=== PATIENT | female | born 1990 | race Caucasian/White ===

== ENCOUNTER 2019-11-05 10:42 | Emergency (ER) | payer SELFPAY ==
--- NOTE | 2019-11-05 11:27 | ER ---
Nurse's Notes [facility] Name: Mel Moncada Age: 29 yrs Sex: Female : 1990 Arrival Date: 11/05/2019 Time: 10:44 Bed 15 Private MD: Diagnosis: Zoster [herpes zoster] Presentation: 11/04 10:46 Chief complaint: Patient states: Possible insect bite to right side of forehead that aa5 began Wednesday. Pt states "now my right eyelid is swollen and I feel like the right side of my face is swollen". 10:46 Coronavirus screen: Client denies travel out of the [place] in the last 14 days. At this aa5 time, the client does not indicate any symptoms associated with coronavirus-19. Ebola Screen: Patient negative for fever greater than or equal to 101.5 degrees Fahrenheit, and additional compatible Ebola Virus Disease symptoms. Initial Sepsis Screen: Does the patient meet any 2 criteria? No. Patient's initial sepsis screen is negative. Does the patient have a suspected source of infection? No. Patient's initial sepsis screen is negative. Risk Assessment: Do you want to hurt yourself or someone else? Patient reports no desire to harm self or others. Onset of symptoms was October 2019. 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 - Social history:: Smoking status: Patient reports the use of cigarette tobacco products, smokes one-half pack cigarettes per day. Screenin:55 Abuse screen: Denies threats or abuse. Denies injuries from another. Nutritional ca1 screening: No deficits noted. Tuberculosis screening: No symptoms or risk factors identified. Fall Risk None identified. Assessment: 10:55 General: Appears in no apparent distress. comfortable, Behavior is calm, cooperative, ca1 appropriate for age. Pain: Complains of pain in forehead Pain currently is 8 out of 10 on a pain scale. Quality of pain is described as burning, Pain began 2-3 days ago. Neuro: Level of Consciousness is awake, alert, obeys commands, Oriented to person, place, time, situation. EENT: Eyes upper R eyelid mild swelling noted. . Derm: Skin is intact, is healthy with good turgor, Skin is pink, warm \\T\\ dry. Rash noted that is red, raised, on forehead. Musculoskeletal: Circulation, motion, and sensation intact. Capillary refill < 3 seconds. 11:32 Reassessment: Patient appears in no apparent distress at this time. No changes from ca1 previously documented assessment. Patient is alert, oriented x 3, equal unlabored respirations, skin warm/dry/pink. Vital Signs: 10:46 BP 121 / 95; Pulse 85; Resp 16 S; Temp 98.0(O); Pulse Ox 98% on R/A; Weight 104.33 kg aa5 (R); Height 4 ft. 11 in. (149.86 cm) (R); Pain 8/10; 11:32 BP 116 / 85; Pulse 82; Resp 15 S; Pulse Ox 99% on R/A; ca1 10:46 Body Mass Index 46.45 (104.33 kg, 149.86 cm) aa5 ED Course: 10:44 Patient arrived in ED. ag5 10:46 Arm band placed on Patient placed in an exam room, on a stretcher. aa5 10:50 Boni Husain PA is PHCP. jr8 10:50 Fahad Cardona MD is Attending Physician. jr8 10:53 Triage completed. aa5 10:54 Sonja Phillips RN is Primary Nurse. ca1 10:55 Patient has correct armband on for positive identification. Bed in low position. Call ca1 light in reach. Side rails up X 1. Pulse ox on. NIBP on. 10:57 No provider procedures requiring assistance completed. Patient did not have IV access ca1 during this emergency room visit. Administered Medications: No medications were administered Outcome: 11:26 Discharge ordered by . jr8 11:32 Discharged to home ambulatory. ca1 11:32 Condition: stable 11:32 Discharge instructions given to patient, Instructed on discharge instructions, follow up and referral plans. medication usage, Demonstrated understanding of instructions, follow-up care, medications, Prescriptions given X 2. 11:33 Patient left the ED. ca1 Signatures: Jolanta Rader RN RN aa5 Boni Husain PA PA jr8 Sonja Phillips RN RN ca1 Vijaya Ladd ag5 Corrections: (The following items were deleted from the chart) 11: 10:55 Derm: Skin is intact, is healthy with good turgor, Skin is pink, warm \\T\\ dry. Rash ca1 noted that is red, raised, on forehead ca1 11: 10:55 Pain: Complains of pain in forehead Pain currently is 8 out of 10 on a pain ca1 scale. Pain began 2-3 days ago. ca1
--- NOTE | 2019-11-05 11:27 | EDPHYS ---
Physician Documentation [facility] Name: Mel Moncada Age: 29 yrs Sex: Female : 1990 Arrival Date: 11/05/2019 Time: 10:44 Bed 15 Private MD: ED Physician Fahad Cardona HPI: 11/04 10:58 This 29 yrs old Female presents to ER via Ambulatory with complaints of jr8 Facial Swelling, Insect Bite. 10:58 Onset: The symptoms/episode began/occurred 2 day(s) ago. Associated signs and symptoms: jr8 The patient has no apparent associated signs or symptoms. The patient has not experienced similar symptoms in the past. Pt states that she noticed what looked like a bug bite on her R forehead on Wednesday. This progressed to redness, burning, and pain extending to the scalp. Pt denies fever, chills, pruitus, and any other symptoms.. 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 - Social history:: Smoking status: Patient reports the use of cigarette tobacco products, smokes one-half pack cigarettes per day. ROS: 11:10 ENT: Negative for injury, pain, and discharge, Neck: Negative for injury, pain, and jr8 swelling, Cardiovascular: Negative for chest pain, palpitations, and edema, Respiratory: Negative for shortness of breath, cough, wheezing, and pleuritic chest pain, Abdomen/GI: Negative for abdominal pain, nausea, vomiting, diarrhea, and constipation, Back: Negative for injury and pain, MS/Extremity: Negative for injury and deformity, Neuro: Negative for headache, weakness, numbness, tingling, and seizure. 11:10 Eyes: Positive for swelling, of the right eye. 11:10 Skin: Positive for rash, of the face. Exam: 11:10 Constitutional: This is a well developed, well nourished patient who is awake, alert, jr8 and in no acute distress. ENT: Nares patent. No nasal discharge, no septal abnormalities noted. Tympanic membranes are normal and external auditory canals are clear. Oropharynx with no redness, swelling, or masses, exudates, or evidence of obstruction, uvula midline. Mucous membranes moist. Neck: Trachea midline, no thyromegaly or masses palpated, and no cervical lymphadenopathy. Supple, full range of motion without nuchal rigidity, or vertebral point tenderness. No Meningismus. Cardiovascular: Regular rate and rhythm with a normal S1 and S2. No gallops, murmurs, or rubs. Normal PMI, no JVD. No pulse deficits. Respiratory: Lungs have equal breath sounds bilaterally, clear to auscultation and percussion. No rales, rhonchi or wheezes noted. No increased work of breathing, no retractions or nasal flaring. Skin: Warm, dry with normal turgor. Normal color with no rashes, no lesions, and no evidence of cellulitis. MS/ Extremity: Pulses equal, no cyanosis. Neurovascular intact. Full, normal range of motion. Neuro: Awake and alert, GCS 15, oriented to person, place, time, and situation. Cranial nerves II-XII grossly intact. Motor strength 5/5 in all extremities. Sensory grossly intact. Cerebellar exam normal. Normal gait. 11:10 Head/face: clustered, erythematic rash noted to R scalp extending to hairline. 11:10 Eyes: Periorbital structures: swelling, that is mild, on the right supraorbital ridge and right upper eyelid, Pupils: equal, round, and reactive to light and accomodation, Extraocular movements: intact throughout, Conjunctiva: normal, Corneas: are normal, Sclera: no appreciated abnormality, Anterior chamber: normal, Examination of the other eye reveals no obvious gross abnormality. Vital Signs: 10:46 BP 121 / 95; Pulse 85; Resp 16 S; Temp 98.0(O); Pulse Ox 98% on R/A; Weight 104.33 kg aa5 (R); Height 4 ft. 11 in. (149.86 cm) (R); Pain 8/10; 11:32 BP 116 / 85; Pulse 82; Resp 15 S; Pulse Ox 99% on R/A; ca1 10:46 Body Mass Index 46.45 (104.33 kg, 149.86 cm) aa5 MDM: 10:56 Patient medically screened. 8 11:10 Data reviewed: vital signs, nurses notes. Data interpreted: Pulse oximetry: on room air jr8 is 98 %. Interpretation: normal. Counseling: I had a detailed discussion with the patient and/or guardian regarding: the historical points, exam findings, and any diagnostic results supporting the discharge/admit diagnosis, the need for outpatient follow up, a family practitioner, to return to the emergency department if symptoms worsen or persist or if there are any questions or concerns that arise at home. ED course: Based on pt complaint, clinical presentation/exam the pt most likely has Herpes Zoster with a chance of early staphylococcal secondary infection. Will put the pt on Acyclovir and Mupurocin ointment. Will discharge the pt, have her follow up with PCP, and instruct to return to the ED if symptoms persist/worsen.. Administered Medications: No medications were administered Disposition: 12:16 Co-signature as Attending Physician, Fahad Cardona MD. rn Disposition: 11/05/19 11:26 Discharged to Home. Impression: Zoster [herpes zoster]. - Condition is Stable. - Discharge Instructions: Shingles. - Prescriptions for Bactroban 2 % Topical Ointment - Apply to affected area 1 application by TOPICAL route every 12 hours; 30 gram. Acyclovir 800 mg Oral Tablet - take 1 tablet by ORAL route 5 times per day for 7 days; 35 tablet. - Medication Reconciliation Form, Thank You Letter, Antibiotic Education, Prescription Opioid Use form. - Follow up: Private Physician; When: 2 - 3 days; Reason: Recheck today's complaints, Continuance of care, Re-evaluation by your physician. - Problem is new. - Symptoms are unchanged. Signatures: Fahad Cardona MD MD rn Calderon, Audri RN RN aa5 Boni Husain PA PA jr8 Sonja Phillips RN RN ca1 Corrections: (The following items were deleted from the chart) 11:33 11:26 11/05/2019 11:26 Discharged to Home. Impression: Zoster [herpes zoster]. ca1 Condition is Stable. Forms are Medication Reconciliation Form, Thank You Letter, Antibiotic Education, Prescription Opioid Use. Follow up: Private Physician; When: 2 - 3 days; Reason: Recheck today's complaints, Continuance of care, Re-evaluation by your physician. Problem is new. Symptoms are unchanged. jr8
[2019-11-05 11:39] VITALS: TEMP 98
[2019-11-05 11:40] VITALS: BP 116/85; O2SAT 99
== END 2019-11-05 11:33 | disposition home or self-care (01) ==
LOC: ER 10:42
DX: B02.9 Zoster without complications (principal); F17.210 Nicotine dependence, cigarettes, uncomplicated
CPT/HCPCS: 99283

== ENCOUNTER 2021-03-10 12:01 | Emergency (ER) | payer SELFPAY ==
[2021-03-10] MEDS ORDERED: ONDANSETRON 4 MG/2 ML VIAL ONE ×2 (14:57→18:57)
[2021-03-10] MEDS ORDERED: NA CHLORIDE 0.9% 1,000 ML ONE (14:58)
[2021-03-10 17:53] LABS: Absolute Lymphocytes (CBC) 0.9 K/uL (0.7-4.9); Basophils % 0.2 % (0-1.3); Hematocrit 40.7 % (36.0-45.0); Lymphocytes % 8.5 % (15.3-44.8); MPV 7.6 fL (7.6-11.3); RBC Red Blood Cell Count 4.44 M/uL (3.86-4.86)
[2021-03-10 18:15] LABS: ALT/SGPT 43 U/L (12-78); AST/SGOT 18 U/L (15-37); Albumin 3.2 g/dL (3.4-5.0); Alkaline Phosphatase 65 U/L (45-117); BUN Blood Urea Nitrogen 12 mg/dL (7-18); Bicarbonate 23 mmol/L (21-32); Bilirubin Direct 0.1 mg/dL (0-0.2); Bilirubin Total 0.5 mg/dL (0.2-1.0); Glucose Level 90 mg/dL (74-106); Lipase 115 U/L (73-393); Protein, Total 7.3 g/dL (6.4-8.2); Sodium Level 141 mmol/L (136-145)
--- NOTE | 2021-03-10 18:52 | RAD REPORT ---
EXAM DESCRIPTION: CTAbdomen Pelvis W Contrast - 03/10/2021 6:35 pm CLINICAL HISTORY: Abdominal pain. abd pain; nausea/vomiting COMPARISON: Abdomen Pelvis W Contrast dated 12/20/2016; CT ABD PELVIS W CONTRAST dated 04/05/2013 TECHNIQUE: Biphasic CT imaging of the abdomen and pelvis was performed with 100 ml non-ionic IV cont rast. All CT scans are performed using dose optimization technique as appropriate and may include automated exposure control or mA/KV adjustment according to patient size. FINDINGS: The lung bases are clear. The liver straight diffuse fatty infiltration. Spleen, pancreas, adrenal glands and kidneys are withi n normal limits. No bowel obstruction, free air, free fluid or abscess. Appendectomy. No evidence of significant lym phadenopathy. No suspicious bony findings. IMPRESSION: No acute intra-abdominal or pelvic finding.
--- NOTE | 2021-03-10 18:55 | EDPHYS ---
Physician Documentation [facility] Name: Mel Moncada Age: 31 yrs Sex: Female : 1990 Arrival Date: 03/10/2021 Time: 12:04 Bed 17 Private MD: ED Physician Fahad Cardona HPI: 03/10 14:36 This 31 yrs old Female presents to ER via Ambulatory with complaints of rn Nausea/Vomiting/Diarrhea. 14:36 The patient presents to the emergency department with nausea, vomiting, diarrhea, rn abdominal pain, of the right lower quadrant. Onset: The symptoms/episode began/occurred this morning. Possible causes: unknown. The symptoms are aggravated by nothing. The symptoms are alleviated by nothing. Associated signs and symptoms: Pertinent positives: abdominal pain, diarrhea, nausea, vomiting, Pertinent negatives: fever, GI bleeding. Severity of symptoms: At their worst the symptoms were moderate in the emergency department the symptoms are unchanged. The patient has not experienced similar symptoms in the past. The patient has not recently seen a physician. Pt reports nausea/vomiting/diarrhea that began earlier today. Reports > 10 episodes of vomiting and diarrhea. No blood in stool. no fever. No trauma. No cough or sob. No known sick contacts. Has had appendix removed. . Historical: - Allergies: 12:58 No Known Allergies; ss - PMHx: 12:58 None; ss - PSHx: 12:58 Appendectomy; section; ss - Immunization history:: Adult Immunizations up to date. - Social history:: Smoking status: Patient reports the use of cigarette tobacco products, smokes one-half pack cigarettes per day. - Family history:: not pertinent. - Hospitalizations: : No recent hospitalization is reported. ROS: 14:36 Constitutional: Negative for fever, chills, and weight loss, Eyes: Negative for injury, rn pain, redness, and discharge, Neck: Negative for injury, pain, and swelling, Cardiovascular: Negative for chest pain, palpitations, and edema, Respiratory: Negative for shortness of breath, cough, wheezing, and pleuritic chest pain, Abdomen/GI: + abd pain/nausea/vomiting/diarrhea Back: Negative for injury and pain, MS/Extremity: Negative for injury and deformity, Skin: Negative for injury, rash, and discoloration, Neuro: Negative for headache, numbness, tingling, and seizure. Exam: 14:36 Constitutional: This is a well developed, well nourished patient who is awake, alert, rn appears uncomfortable Head/Face: Normocephalic, atraumatic. Eyes: Periorbital areas with no swelling, redness, or edema. ENT: dry MM Cardiovascular: Tachycardic, regular. No pulse deficits. Respiratory: No increased work of breathing, no retractions or nasal flaring. Abdomen/GI: Soft, mild RLQ abd tenderness, no rebound Skin: Warm, dry MS/ Extremity: Pulses equal, no cyanosis. Neuro: Awake and alert, GCS 15 Vital Signs: 12:54 BP 115 / 82; Pulse 113; Resp 18; Temp 98.6; Pulse Ox 100% ; Weight 110.68 kg; Height 4 ss ft. 11 in. (149.86 cm); Pain 10/10; 14:54 BP 116 / 80; Pulse 86; Resp 18; Temp 98.5(O); Pulse Ox 100% ; jh6 16:32 BP 123 / 74; Pulse 82; Resp 17; Pulse Ox 100% ; Pain 0/10; jh6 17:35 BP 125 / 76; Pulse 80; Resp 17; Pulse Ox 100% ; jh6 12:54 Body Mass Index 49.28 (110.68 kg, 149.86 cm) ss MDM: 14:17 Patient medically screened. rn 18:54 Differential diagnosis: Nonspecific abd pain, diverticulitis, viral gastroenteritis, rn gastroenteritis. Data reviewed: vital signs, nurses notes, lab test result(s), radiologic studies, CT scan, and as a result, I will discharge patient. Counseling: I had a detailed discussion with the patient and/or guardian regarding: the historical points, exam findings, and any diagnostic results supporting the discharge/admit diagnosis, lab results, radiology results, the need for outpatient follow up, to return to the emergency department if symptoms worsen or persist or if there are any questions or concerns that arise at home. Response to treatment: the patient's symptoms have markedly improved after treatment, and as a result, I will discharge patient. Special discussion: Based on the patient's Hx, exam, and Dx evaluation, there is no indication for emergent surgery or inpatient Tx. It is understood by the patient/guardian that if the Sx's persist or worsen they need to return immediately for re-evaluation. I discussed with the patient/guardian in detail that at this point there is no indication for admission to the hospital. It is understood, however, that if the symptoms persist or worsen the patient needs to return immediately for re-evaluation. 03/10 14:24 Order name: Basic Metabolic Panel; Complete Time: 18:27 rn 03/10 14:24 Order name: CBC with Diff; Complete Time: 18:05 rn 03/10 14:24 Order name: Hepatic Function; Complete Time: 18:27 rn 03/10 14:24 Order name: Lipase; Complete Time: 18:27 rn 03/10 17:19 Order name: Abdomen ; Complete Time: 18:53 EDMS 03/10 14:24 Order name: IV Saline Lock; Complete Time: 14:55 rn 03/10 14:24 Order name: Labs collected and sent; Complete Time: 14:55 rn 03/10 15:06 Order name: Labs - recollect needed: recollect green and lavender tube.; Complete Time: bd 17:54 Administered Medications: 15:03 Drug: NS 0.9% 1000 ml Route: IV; Rate: 1000 ml; Site: left antecubital; [facility] 15:03 Drug: Zofran (Ondansetron) 4 mg Route: IVP; Site: left antecubital; [facility] 15:32 Follow up: Response: No adverse reaction [facility] 19:00 Not Given (Patient Refused): LoMOTIL (diphenoxylate-atropine) 2 tabs PO once 6 19:00 Drug: Zofran (Ondansetron) 4 mg Route: IVP; Site: left forearm; [facility] 19:00 Follow up: Response: No adverse reaction [facility] Disposition Summary: 03/10/21 18:54 Discharge Ordered Location: Home rn Problem: new rn Symptoms: have improved rn Condition: Stable rn Diagnosis - Vomiting, unspecified rn - Diarrhea, unspecified rn Followup: rn - With: Private Physician - When: As needed - Reason: Recheck today's complaints, Re-evaluation by your physician Discharge Instructions: - Discharge Summary Sheet rn - Diarrhea, Adult rn - Nausea and Vomiting, Adult rn Forms: - Medication Reconciliation Form rn - Thank You Letter rn - 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 EDMS EDMS
--- NOTE | 2021-03-10 18:55 | ER ---
Nurse's Notes [facility] Name: eMl Moncada Age: 31 yrs Sex: Female : 1990 Arrival Date: 03/10/2021 Time: 12:04 Bed 17 Private MD: Diagnosis: Vomiting, unspecified;Diarrhea, unspecified Presentation: 03/10 12:54 Chief complaint: Patient states: throwing up since this morning; x5 per patient with ss diarrhea every 30-40 min. All started about 0600am today. Complaints of right sided abdominal pain. Pt states she has had her appendix removed. Denies . Coronavirus screen: Vaccine status: Patient reports being unvaccinated. Client denies travel out of the [place] in the last 14 days. Ebola Screen: Patient negative for fever greater than or equal to 101.5 degrees Fahrenheit, and additional compatible Ebola Virus Disease symptoms Patient denies exposure to infectious person. Patient denies travel to an Ebola-affected area in the 21 days before illness onset. Initial Sepsis Screen: Does the patient meet any 2 criteria? HR > 90 bpm. Does the patient have a suspected source of infection? Yes:. Risk Assessment: Do you want to hurt yourself or someone else? Patient reports no desire to harm self or others. Onset of symptoms was March 10, 2021. 12:54 Method Of Arrival: Ambulatory ss 12:54 Acuity: LUISANA 3 ss Triage Assessment: 12:58 General: Appears uncomfortable, obese, Behavior is calm, cooperative, appropriate for ss age. Pain: Complains of pain in abdomen. GI: Reports upper abdominal pain, diarrhea, nausea, vomiting. Historical: - Allergies: 12:58 No Known Allergies; ss - PMHx: 12:58 None; ss - PSHx: 12:58 Appendectomy; section; ss - Immunization history:: Adult Immunizations up to date. - Social history:: Smoking status: Patient reports the use of cigarette tobacco products, smokes one-half pack cigarettes per day. - Family history:: not pertinent. - Hospitalizations: : No recent hospitalization is reported. Screenin:56 Abuse screen: Denies threats or abuse. Nutritional screening: No deficits noted. jh6 Tuberculosis screening: No symptoms or risk factors identified. Fall Risk None identified. Assessment: 14:53 General: Appears in no apparent distress. Behavior is calm, cooperative, Smells of. jh6 Pain: Complains of pain in epigastric area Pain currently is 4 out of 10 on a pain scale. Quality of pain is described as crampy, Pain began suddenly, Is continuous, Aggravated by vomting. GI: Abdomen is round distended, obese, Abd is soft Abdomen is tender to palpation X 4 quads. 16:31 Reassessment: Patient and/or family updated on plan of care and expected duration. Pain jh6 level reassessed. Patient is alert, oriented x 3, equal unlabored respirations, skin warm/dry/pink. Patient states feeling better. no episodes of vomiting or abd pain at this time. attempted to call lab for redraw for second time,. 17:40 Reassessment: LAB AT BEDSIDE FOR REDRAW. jh6 17:53 Reassessment: labs brawn by tech and ct advised. pt ambulatory to bathroom without jh6 assistance and has had no episodes of vomiting. 18:27 Reassessment: Patient and/or family updated on plan of care and expected duration. Pain jh6 level reassessed. Patient is alert, oriented x 3, equal unlabored respirations, skin warm/dry/pink. Patient states feeling better. Vital Signs: 12:54 BP 115 / 82; Pulse 113; Resp 18; Temp 98.6; Pulse Ox 100% ; Weight 110.68 kg; Height 4 ss ft. 11 in. (149.86 cm); Pain 10/10; 14:54 BP 116 / 80; Pulse 86; Resp 18; Temp 98.5(O); Pulse Ox 100% ; jh6 16:32 BP 123 / 74; Pulse 82; Resp 17; Pulse Ox 100% ; Pain 0/10; jh6 17:35 BP 125 / 76; Pulse 80; Resp 17; Pulse Ox 100% ; jh6 12:54 Body Mass Index 49.28 (110.68 kg, 149.86 cm) ED Course: 12:04 Patient arrived in ED. ds1 12:58 Triage completed. 14:17 Fahad Cardona MD is Attending Physician. rn 14:18 Marisol Dye RN is Primary Nurse. 6 14:56 Inserted saline lock: 20 gauge in left antecubital area, using aseptic technique. jh6 14:56 Call light in reach. Side rails up X 1. jh6 15:00 Arm band placed on right wrist. jh6 15:29 IV discontinued, infiltration of iv to l ac. swelling and slight redness noted. warm 6 compress placed on l ac area. attempted twice further for second iv and was unsuccessful. notified and other personal is attempting. 18:27 Patient moved to [place] via stretcher. jh6 18:35 Abdomen In Process Unspecified. EDKY 18:40 Patient moved back from [place]. 6 18:40 No provider procedures requiring assistance completed. jh6 Administered Medications: 15:03 Drug: NS 0.9% 1000 ml Route: IV; Rate: 1000 ml; Site: left antecubital; 6 15:03 Drug: Zofran (Ondansetron) 4 mg Route: IVP; Site: left antecubital; 6 15:32 Follow up: Response: No adverse reaction [facility] 19:00 Not Given (Patient Refused): LoMOTIL (diphenoxylate-atropine) 2 tabs PO once 6 19:00 Drug: Zofran (Ondansetron) 4 mg Route: IVP; Site: left forearm; 6 19:00 Follow up: Response: No adverse reaction [facility] Outcome: 18:54 Discharge ordered by . rn 19:03 Discharged to home ambulatory. 6 19:03 Condition: improved 19:03 Discharge instructions given to patient, Instructed on discharge instructions, follow up and referral plans. Demonstrated understanding of instructions, follow-up care, medications, Prescriptions given X 1. 19:06 Patient left the ED. 6 Signatures: Dispatcher [employer] [facility] Karen Prince ds1 Fahad Cardona MD MD rn Smirch, Shelby, RN RN ss Hastedt, Jennifer, RN RN 6
[2021-03-10 19:32] VITALS: O2SAT 100
[2021-03-10 19:34] VITALS: TEMP 98.5
[2021-03-10 19:37] VITALS: BP 125/76
== END 2021-03-10 19:06 | disposition home or self-care (01) ==
LOC: ER 12:01
DX: R19.7 Diarrhea, unspecified (principal); F17.210 Nicotine dependence, cigarettes, uncomplicated
CPT/HCPCS: 36415; 74177; 80048; 80076; 83690; 85025; 99284; J2405; J7030; Q9967

== ENCOUNTER 2021-07-30 20:14 | Emergency (ER) | payer SELFPAY ==
[2021-07-30] MEDS ORDERED: HYDROCODONE/APAP 7.5/325 MG TAB ONE (21:13)
--- NOTE | 2021-07-30 22:00 | RAD REPORT ---
EXAM DESCRIPTION: RAD - Hand Left 3 View - 07/30/2021 9:40 pm CLINICAL HISTORY: SMASH INJURY COMPARISON: No comparisons FINDINGS/IMPRESSION: No acute fracture. No malalignment. No significant focal degenerative changes.
--- NOTE | 2021-07-30 22:15 | ER ---
Nurse's Notes [facility] Name: Mel Moncada Age: 31 yrs Sex: Female : 1990 Arrival Date: 07/30/2021 Time: 20:37 Bed 6 Private MD: Diagnosis: Crushing injury of hand-left Presentation: 07/30 20:43 Chief complaint: Patient states: "The trunk slammed down on my fingers and they are vc1 just throbbing. I can't bend my middle finger and I can't feel the middle three. The trunk shut completely on it and the keys were in my pocket so it took a few minutes to open it". Coronavirus screen: Vaccine status: Patient reports being unvaccinated. At this time, the client does not indicate any symptoms associated with coronavirus-19. Ebola Screen: No symptoms or risks identified at this time. Risk Assessment: Do you want to hurt yourself or someone else? Patient reports no desire to harm self or others. Onset of symptoms was July 30, 2021 at 19:00. 20:43 Method Of Arrival: Ambulatory vc1 20:43 Acuity: LUISANA 4 vc1 22:43 Initial Sepsis Screen: Does the patient meet any 2 criteria? Yes Does the patient have tw5 a suspected source of infection? No. Patient's initial sepsis screen is negative. Triage Assessment: 20:45 General: Appears in no apparent distress. uncomfortable, Behavior is calm, cooperative, vc1 appropriate for age. Pain: Complains of pain in left index finger, left middle finger and left ring finger Pain radiates to dorsal aspect of left wrist Pain currently is 9 out of 10 on a pain scale. at worst was 10 out of 10 on a pain scale. Quality of pain is described as pressure, squeezing, tingling, throbbing, Aggravated by movement. Neuro: Level of Consciousness is awake, alert, obeys commands, Oriented to person, place, time, situation, Appropriate for age. Cardiovascular: No deficits noted. Respiratory: No deficits noted. Derm: Skin has skin tears on Left index finger Bruising that is light purple. Musculoskeletal: Range of motion: limited in DIP of left middle finger, PIP of left middle finger and MCP of left middle finger Swelling present in left index finger, left middle finger and left ring finger. Injury Description: Crush injury sustained to left index finger, left middle finger and left ring finger. 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 Last tetanus immunization: unknown, Flu vaccine is not up to date. - Social history:: Smoking status: Patient reports the use of cigarette tobacco products, 1 pack every 2-3 days. Screenin:59 Abuse screen: Denies threats or abuse. Denies injuries from another. Nutritional lg3 screening: No deficits noted. Tuberculosis screening: No symptoms or risk factors identified. Fall Risk None identified. Assessment: 20:59 General: Appears in no apparent distress. comfortable, Behavior is calm, cooperative. lg3 Pain: Complains of pain in left hand and left ring finger and left middle finger and left index finger. Neuro: No deficits noted. Rutledge Agitation-Sedation Scale (RASS): 0 - Alert and Calm Level of Consciousness is awake, alert, obeys commands, Oriented to person, place, time, situation. Cardiovascular: No deficits noted. Denies chest pain, shortness of breath, Capillary refill < 3 seconds Clubbing of nail beds is absent JVD is absent Patient's skin is warm and dry. Respiratory: No deficits noted. Airway is patent Trachea midline Respiratory effort is even, unlabored, Respiratory pattern is regular, symmetrical. GI: No deficits noted. No signs and/or symptoms were reported involving the gastrointestinal system. : No deficits noted. No signs and/or symptoms were reported regarding the genitourinary system. EENT: No deficits noted. No signs and/or symptoms were reported regarding the EENT system. Derm: swelling noted to index, middle and ring finger of left hand. Musculoskeletal: Range of motion: limited in left middle finger. Injury Description: Crush injury. 22:14 Reassessment: Patient appears in no apparent distress at this time. No changes from lg3 previously documented assessment. Patient and/or family updated on plan of care and expected duration. Pain level reassessed. Patient is alert, oriented x 3, equal unlabored respirations, skin warm/dry/pink. Vital Signs: 20:50 BP 118 / 76 RA Sitting (auto/lg); Pulse 110 RA; Resp 17 S; Temp 98.4(TE); Pulse Ox 95% vc1 on R/A; Weight 113.4 kg (R); Height 4 ft. 11 in. (149.86 cm) (R); Pain 9/10; 22:42 Pain 4/10; tw5 20:50 Body Mass Index 50.49 (113.40 kg, 149.86 cm) vc1 ED Course: 20:37 Patient arrived in ED. bp1 20:41 Rober Casillas PA is PHCP. cp 20:41 Ollie Melissa MD is Attending Physician. cp 20:45 Triage completed. vc1 20:45 Arm band placed on right wrist. vc1 20:58 Belén Pierre, JOANN is Primary Nurse. lg3 20:59 Patient has correct armband on for positive identification. Bed in low position. Call lg3 light in reach. Side rails up X 1. Client placed on continuous cardiac and pulse oximetry monitoring. NIBP monitoring applied. Door closed. Noise minimized. Warm blanket given. 21:42 XRAY Hand LEFT 3 View In Process Unspecified. EDMS 22:42 Orthoglass splint: Volar splint applied on left arm. tw5 22:43 No provider procedures requiring assistance completed. Patient did not have IV access tw5 during this emergency room visit. Administered Medications: 21:16 Drug: Hydrocodone-Acetaminophen (7.5 mg-325 mg) 1 tabs Route: PO; tw5 22:28 Follow up: Response: No adverse reaction lg3 22:42 Follow up: Response: No adverse reaction; Pain is decreased; RASS: Alert and Calm (0) tw5 Outcome: 22:14 Discharge ordered by MD. cp 22:43 Discharged to home ambulatory, with family. tw5 22:43 Condition: good 22:43 Discharge instructions given to patient, family, Instructed on discharge instructions, follow up and referral plans. medication usage, Demonstrated understanding of instructions, follow-up care, medications, Prescriptions given X 1. 22:43 No charge visit due to 22:44 Patient left the ED. tw5 Signatures: Dispatcher [employer] EDMS Page, Rober, Belén Segura cp, RN RN lg3 Genie [facility] Reina Jaimes tw5 Anai Hsu, RN RN vc1
--- NOTE | 2021-07-30 22:15 | EDPHYS ---
Physician Documentation [facility] Name: Mel Moncada Age: 31 yrs Sex: Female : 1990 Arrival Date: 07/30/2021 Time: 20:37 Bed 6 Private MD: ED Physician Ollie Melissa HPI: 07/30 21:10 This 31 yrs old Female presents to ER via Ambulatory with complaints of Hand Injury, cp Finger Injury, Crush Injury To Hand. 21:10 The patient or guardian reports pain, swelling, tenderness, crushing injury to left cp hand from closing of car trunk onto hand. 21:10 Onset: The symptoms/episode began/occurred just prior to arrival. Associated signs and cp symptoms: The patient has no apparent associated signs or symptoms. 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 Last tetanus immunization: unknown, Flu vaccine is not up to date. - Social history:: Smoking status: Patient reports the use of cigarette tobacco products, 1 pack every 2-3 days. ROS: 21:20 MS/extremity: Positive for pain, swelling, tenderness, of the left hand, crushing cp injury, Negative for decreased range of motion, deformity, paresthesias. 21:20 Constitutional: Negative for body aches, chills, fever. cp Exam: 21:25 Constitutional: The patient appears in no acute distress, alert, awake, well developed, cp well nourished, uncomfortable. 21:25 Musculoskeletal/extremity: Extremities: grossly normal except: noted in the left hand: cp contusion, pain, swelling, tenderness, small abrasion dorsal side middle phalanx left middle finger, There is no evidence of decreased ROM, deformity, ROM: limited active range of motion due to pain, in the left hand, Perfusion: the extremity is normally perfused throughout, the left hand Sensation intact. Vital Signs: 20:50 BP 118 / 76 RA Sitting (auto/lg); Pulse 110 RA; Resp 17 S; Temp 98.4(TE); Pulse Ox 95% vc1 on R/A; Weight 113.4 kg (R); Height 4 ft. 11 in. (149.86 cm) (R); Pain 9/10; 22:42 Pain 4/10; tw5 20:50 Body Mass Index 50.49 (113.40 kg, 149.86 cm) vc1 Procedures: 22:30 Splinting: Splint applied to left hand using Orthoglass splint, volar type. applied by cp tech. Examined by me, post splint application: neurovascular intact, Patient tolerated well. MDM: 20:56 Patient medically screened. cp 22:14 Data reviewed: vital signs, nurses notes, radiologic studies, plain films. cp 22:14 Differential diagnosis: dislocation, open fracture, closed fracture, contusion. Test cp interpretation: by ED physician or midlevel provider: plain radiologic studies. Counseling: I had a detailed discussion with the patient and/or guardian regarding: the historical points, exam findings, and any diagnostic results supporting the discharge/admit diagnosis, radiology results, to return to the emergency department if symptoms worsen or persist or if there are any questions or concerns that arise at home. Response to treatment: the patient's symptoms have markedly improved after treatment, and as a result, I will discharge patient. 07/30 21:00 Order name: XRAY Hand LEFT 3 View cp 07/30 22:10 Order name: Splint: volar surface; Complete Time: 22:36 cp Administered Medications: 21:16 Drug: Hydrocodone-Acetaminophen (7.5 mg-325 mg) 1 tabs Route: PO; tw5 22:28 Follow up: Response: No adverse reaction lg3 22:42 Follow up: Response: No adverse reaction; Pain is decreased; RASS: Alert and Calm (0) tw5 Disposition Summary: 07/30/21 22:14 Discharge Ordered Location: Home cp Problem: new cp Symptoms: have improved cp Condition: Stable cp Diagnosis - Crushing injury of hand - left cp Followup: cp - With: Private Physician - When: 2 - 3 days - Reason: Worsening of condition Discharge Instructions: - Discharge Summary Sheet cp - Crush Injury of the Hand cp Forms: - Medication Reconciliation Form cp - Thank You Letter cp - Antibiotic Education cp - Prescription Opioid Use cp Prescriptions: - Naprosyn 500 mg Oral Tablet - take 1 tablet by ORAL route 2 times per day take with food; 20 tablet; Refills: cp 0, Product Selection Permitted Signatures: Dispatcher [employer] EDMS Rober Casillas PA PA cp Wood, Tiffany tw5 Anai Hsu RN RN vc1 Belén Pierre RN lg3 Corrections: (The following items were deleted from the chart) 07/31 21:16 07/30 21:10 The patient or guardian reports crushing injury to left hand from closing cp of car door onto hand, cp
[2021-07-30 23:18] VITALS: BP 118/76; TEMP 98.4; O2SAT 95
== END 2021-07-30 22:44 | disposition home or self-care (01) ==
LOC: ER 20:14
PROC: 2W3DX1Z Immobilization of Left Lower Arm using Splint (ICD-10-PCS; principal; 2021-07-30)
DX: S67.22XA Crushing injury of left hand, initial encounter (principal); W23.0XXA Caught, crushed, jammed, or pinched between moving objects, initial encounter; F17.210 Nicotine dependence, cigarettes, uncomplicated

== ENCOUNTER 2021-10-31 16:24 | Emergency (ER) | payer SELFPAY ==
--- OUTSIDE RECORDS SUMMARY | 2021-10-31 16:26 | XMS REPORT | Continuity of Care Document ---
:1990 Author Organization [facility] t Address [address] [place] [address] Care Team Providers Name Role Phone MORENO MOREL Attending Clinician Unavailable SOLANGE PUGH Attending Clinician Unavailable GERMAINE CAPPS Attending Clinician Unavailable SOLANGE PUGH Admitting Clinician Unavailable GERMAINE CAPPS Admitting Clinician Unavailable Problems This patient has no known problems. Allergies, Adverse Reactions, Alerts This patient has no known allergies or adverse reactions. Medications This patient has no known medications. Procedures This patient has no known procedures. Encounters Start End Encounter Admission Attending Care Care Encounter Source Date/Time Date/Time Type Type Clinicians Facility Department ID 2021-10-21 Outpatient MARIA TERESA [facility] [id number] [place] 10:50:26 MORENO [id number] [facility] 2021-11-05 2021-11-05 Outpatient [facility] [id number] [place] 13:00:00 13:00:00 [facility] 2021-10-11 2021-10-14 Inpatient SOLANGE SHEIKH [facility] [id number] 00:58:00 18:54:00 2021-10-10 2021-10-10 Outpatient GÉNESIS [facility] [place] [address] 17:11:00 23:59:00 GERMAINE Results This patient has no known results.
[2021-10-31] MEDS ORDERED: ONDANSETRON 4 MG/2 ML VIAL ONE (16:55)
[2021-10-31] MEDS ORDERED: MORPHINE 4 MG/ML SYR ONE (16:55)
[2021-10-31 17:27] LABS: Absolute Lymphocytes (CBC) 3.2 K/uL (0.7-4.9); Hematocrit 39.8 % (36.0-45.0); Lymphocytes % 29.6 % (15.3-44.8); MCV 91.3 fL (80-100); MPV 7.3 fL (7.6-11.3); RBC Red Blood Cell Count 4.36 M/uL (3.86-4.86)
[2021-10-31 17:29] LABS: Protime INR 0.97
[2021-10-31 17:48] LABS: Albumin 3.3 g/dL (3.4-5.0); Bilirubin Direct 0.2 mg/dL (0-0.2); Bilirubin Total 0.4 mg/dL (0.2-1.0); Magnesium 2.1 mg/dL (1.8-2.4); Troponin High Sensitivity 3.9 pg/mL (<58.9)
--- NOTE | 2021-10-31 17:48 | RAD REPORT ---
EXAM DESCRIPTION: [place] Single View10/31/2021 5:41 pm CLINICAL HISTORY: Chest pain COMPARISON: 2015 FINDINGS: The lungs appear clear of acute infiltrate. The heart is normal size IMPRESSION: No acute abnormalities displayed
[2021-10-31] MEDS ORDERED: MORPHINE 2 MG/ML SYR ONE (18:59)
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
[2021-11-01 03:22] VITALS: TEMP 97.9
[2021-11-01 03:32] VITALS: BP 95/68; O2SAT 95
--- NOTE | 2021-11-01 09:13 | EKG ---
Test Date: 2021-10-31 Test Time: 16:53:06 Information Developer: WANDA MEASUREMENT RESULTS: Intervals: Rate: 102 CT: 166 QRSD: 90 QT: 352 QTc: 458 [place]: P: 53 CT: 166 QRS: 54 T: 57 INTERPRETIVE STATEMENTS: Sinus tachycardia Otherwise normal ECG No previous ECG available for comparison Electronically Signed On 11-01-21 09:12:49 CDT by Rashel Slade
--- NOTE | 2021-11-01 18:43 | RAD REPORT ---
EXAM DESCRIPTION: CT Angiography Chest With Intravenous Contrast CLINICAL HISTORY: The patient is 31 years old and is Female; Chest pain TECHNIQUE: Axial computed tomographic angiography images of the chest with intravenous contrast. T his CT exam was performed using one or more of the following dose reduction techniques: automated e xposure control, adjustment of the mA and/or kV according to patient size, and/or use of iterative re construction technique. MIP reconstructed images were created and reviewed. Oblique reformatted images were created and reviewed. DLP: 975 mGy*cm COMPARISON: Chest radiograph of the same day. FINDINGS: PULMONARY ARTERIES: Limited evaluation due to poor bolus timing. No central pulmonary em boli. AORTA: No acute findings. No thoracic aortic aneurysm. LUNGS: Unremarkable. No mass. No consolidation. PLEURAL SPACE: Unremarkable. No significant effusion. No pneumothorax. HEART: Unremarkable. No cardiomegaly. No significant pericardial effusion. No evidence of RV dysfunction. BONES/JOINTS: No acute fracture. No dislocation. SOFT TISSUES: Large right lateral abdominal wall defect with herniation of right hepatic lobe and m ild herniation of large bowel. Surrounding fat stranding. LYMPH NODES: Unremarkable. No enlarged lymph nodes. LIVER: Hepatic steatosis. IMPRESSION: 1. Limited evaluation due to poor bolus timing. No central pulmonary emboli. 2. No acute intrathoracic abnormality. 3. Large right lateral abdominal wall defect with herniation of right hepatic lobe and mild herniat ion of large bowel. Surrounding fat stranding. 4. Hepatic steatosis. Electronically signed by: Johnny Salgado DO 10/31/2021 11:52 PM CDT Due to temporary technical issues with the PACS/Fluency reporting system, reports are being signed by the in house radiologists without review as a courtesy to insure prompt reporting. The interpreting radiologist is fully responsible for the content of the report.
== END 2021-11-01 00:45 | disposition home or self-care (01) ==
LOC: ER 16:24
DX: R07.9 Chest pain, unspecified (principal); R10.11 Right upper quadrant pain; F17.210 Nicotine dependence, cigarettes, uncomplicated
CPT/HCPCS: 36415; 71045; 71275; 80048; 80076; 83735; 83880; 84484; 85025; 85379; 85610; 93005; 96374; 96375; 99284; J2270; J2405; Q9967

== ENCOUNTER 2022-02-14 21:27 | Emergency (ER) | payer SELFPAY ==
--- OUTSIDE RECORDS SUMMARY | 2022-02-14 21:31 | XMS REPORT | Continuity of Care Document ---
:1990 Author Organization [facility] t Address [address] [place] [address] Care Team Providers Name Role Phone No , Pcp Primary Care Physician Unavailable MORENO MOREL Attending Clinician Unavailable Zackary Montez MD Attending Clinician SOLANGE JOSE Attending Clinician Unavailable Solange Jose Attending Clinician GERMAINE CAPPS Attending Clinician Unavailable SOLANGE JOSE Admitting Clinician Unavailable Solange Jose Admitting Clinician GERMAINE CAPPS Admitting Clinician Unavailable Problems Condition Condition Condition Status Onset Resolution Last Treating Co mments Source Name Details Category Date Date Treatment Clinician Date Closed Closed Disease Active [place] fracture fracture 11-20 [facility] right of right 00:00: distal distal 00 radius radius Displaced Displaced Disease Active [place] fracture fracture 11-07 [facility] of of 00:00: proximal proximal 00 phalanx of phalanx of left great left great toe with toe with routine routine healing healing Displaced Displaced Disease Active [place] fracture fracture 12 [facility] of second of second 00:00: metatarsal metatarsal 00 bone of bone of right foot right foot with with routine routine healing healing Right Right Disease Active [facility] wrist pain wrist pain 8-11 He alth 00:00: 00 HEPATIC HEPATIC Diagnosis Active 2021-10-10 Memoria LACERATION LACERATION 10-10 22:38:00 l PULMONARY PULMONARY 00:00: Herm susana CONTUSION CONTUSION 00 Active 10/10/2021 [facility] LIFE LIFE Diagnosis Active 2021-11-28 Mem oria FLIGHT FLIGHT 10-10 16:48:00 l TRANSFER TRANSFER 00:00: Efrain n Active 00 10/10/2021 [facility] CLOSED CLOSED Diagnosis Active 2021-11-28 Me moria TRAUMATIC TRAUMATIC 10-10 16:48:00 l DISPLACED DISPLACED 00:00: Missy meza FRACTURE FRACTURE 00 OF D OF D Active 10/10/2021 [facility] History of Past Illness Condition Condition Condition Status Onset Resolution Last Treating Co mments Source Name Details Category Date Date Treatment Clinician Date Other Other Problem 2021-10-17 2021-10-17 Memoria specified specified 10-14 00:26:34 00:26:34 l disorders disorders 20:22: Herm susana of adrenal of adrenal 00 gland gland 10/14/2021 10/17/2021 [facility] Unspecifie Unspecifi Problem 2021-10-17 2021-10-17 Memoria d injury ed injury 10-11 00:26:34 00:26:34 l of liver, of liver, 13:23: Herm susana initial initial 00 encounter encounter 10/11/2021 [facility] Allergies, Adverse Reactions, Alerts Allergy Allergy Status Severity Reaction(s) Onset Inactive Treating Comm ents Source Name Type Date Date Clinician Latex Propensi Active Rash AR ty to 07-15 Health adverse 00:00: reaction 00 s Social History Social Habit Start Date Stop Date Quantity Comments Source Exposure to SARS-CoV-2 2021-11-16 2021-11-26 Not sure [facility] (event) 00:00:00 11:27:00 Sex Assigned At [birth year] [facility] 00:00:00 00:00:00 Smoking Status Start Date Stop Date Source Tobacco smoking consumption unknown [facility] Social History 2021-10-10 23:52:27 [facility] Medications Ordered Filled Start Stop Current Ordering Indication Dosage Frequency Signature Comments Components Source Medication Medication Date Date Medication? Clinician (SIG) Name Name MiraLax 2021-0 No 17 gm, Memoria 7-20 Route: PO, l 14:00: Daily, [place] 00 Dosing Weight 113.636, kg, Start date: 10/15/21 9:00:00 CDT, Duration: 30 day, Stop date: 11/13/21 9:00:00 CDT aspirin 325 2021-0 No 325 mg, 1 M emoria mg tablet 7-19 tab, l 22:00: Route: PO, [place] 00 Drug form: TAB, BID, Dosing Weight 113.636, kg, Start date: 10/14/21 17:00:00 CDT, Duration: 30 day, Stop date: 11/13/21 9:00:00 CDT, 0 methocarbam 2021-0 Yes 750 mg = 1 Memoria ol 750 mg 7-19 tab, PO, l oral tablet 21:37: Q8Hnow, X H ermann 00 6 week, # 126 tab, 0 Refill(s), Pharmacy: [facility] #[id number], 149.86, cm, 10/11/21 4:08:00 CDT, Height, 113.636, kg, 10/11/21 4:08:00 CDT, Weight acetaminoph 2021-0 Yes 1 gm = 2 Me moria en 500 mg 7-19 tab, PO, l oral 21:36: Q6H, X 6 [place] tablet. 00 week, # 336 tab, 0 Refill(s), Pharmacy: [facility] #[id number], 149.86, cm, 10/11/21 4:08:00 CDT, Height, 113.636, kg, 10/11/21 4:08:00 CDT, Weight aspirin 325 2021-0 Yes 325 mg = 1 Memoria mg tablet 7-19 tab, PO, l 21:36: BID, # 42 Soule[place]ane 00 tab, 0 Refill(s), Pharmacy: [facility] #[id number], 149.86, cm, 10/11/21 4:08:00 CDT, Height, 113.636, kg, 10/11/21 4:08:00 CDT, Weight gabapentin 2021-0 Yes 600 mg = 2 M emoria 300 mg oral 7-19 cap, PO, l capsule 21:36: Q8H, # 252 Herm susana 00 cap, 0 Refill(s), Pharmacy: [facility] #[id number], 149.86, cm, 10/11/21 4:08:00 CDT, Height, 113.636, kg, 10/11/21 4:08:00 CDT, Weight MiraLax No Notes: Memoria 7-19 Dissolve l 15:00: in 8 oz of water or juice. (Same as: Miralax) Tums No Notes: Memoria -19 (Same As: l 14:32: Tums) Calcium Carbonate 500 mg = 200 mg elemental calcium Dose = mg calcium carbonate ( mg elemental calcium) Zofran No Notes: Memoria 7-18 (Same as: l 13:00: Zofran) MEDICATION WASTE Product Size: 4 mg Product Wasted: ___ mg docusate-se No Notes: Bryant myriam nna 50 10-12 (Same as l mg-8.6 mg 22:00: Senokot-S) He rm oral tablet 00 Equiv. to Kendra-Colac e. gabapentin No Notes: Memor ia -17 (Same as: l 21:00: Neurontin) Omnipaque No 80 mL, Memori a 350 mg/mL 10-12 Route: l 19:52: IVP, Drug Form: SOLN, Dosing Weight 113.636, kg, ONCALL, STAT, Start date: 10/12/21 14:52:00 CDT, Duration: 1 doses or times, Dose = 2.2ml/kg, Max dose = 100ml -- "To be infused by Radiology Staff ONLY" Isolyte S No Notes: Memori a PH 7.4 - (Same as: l 1,000 mL 04:57: Isolyte S Herm PH7.4, Normosol-R PH 7.4, Plasma-Lyt e A ) Isolyte S 2022-0 No 500 mL, Memor ia PH-7.4 - Infuse l (Bolus) IV 01:17: Over: 1 Herm hr, Route: IV, Drug form: INJ, ONCE, Priority: STAT, Dosing Weight 113.636 kg, Start date: 10/11/21 20:17:00 CDT, Stop date: 10/11/21 20:17:00 CDT, Bolus Dose ceFAZolin No Notes: Memori a -17 (Same as l 01:00: Ancef) Lovenox No Notes: Memoria 7-16 (Same as: l 20:00: Lovenox) ondansetron No Route: IV, Memoria (ANES) - Drug form: l 18:49: INJ, ONCE, Stop date: 10/11/21 13:49:00 CDT glycopyrrol No Route: IV, Memoria ate (ANES) - Drug form: l 18:44: INJ, ONCE, Stop date: 10/11/21 13:44:00 CDT neostigmine No Route: IV, Memoria (ANES) 7-16 Drug form: l 18:44: INJ, ONCE, Stop date: 10/11/21 13:44:00 CDT hydromorpho No Route: IV, Memoria ne (ANES) - Drug form: l 18:29: INJ, ONCE, Stop date: 10/11/21 13:29:00 CDT phenylephri No Route: IV, Memoria ne (ANES) - Drug form: l 17:13: INJ, ONCE, Stop date: 10/11/21 12:13:00 CDT ANES No Notes: Memoria hydrALAZINE -16 (Same as: l 17:07: Apresoline ) Push over 5 minutes ANES No 10 mg, 2 Memoria labetalol 7-16 mL, Route: l 17:07: IVP, Drug form: INJ, Q5Min, Dosing Weight 113.636, kg, PRN Elevated BP, Start date: 10/11/21 12:07:00 CDT, Duration: 5 doses or times, Stop date: 10/12/21 13:18:00 CDT, 0 ANES No Notes: Memoria oxyCODONE 5 7-16 (Same as: l mg 17:07: Roxicodone ) release tablet ANES No Notes: Memoria fentaNYL 7-16 (Same as: l 17:07: Sublimaze) Preservati ve free. ANES No Notes: Memoria HYDROmorpho 7-16 Same as l ne 17:07: Dilaudid S No Notes: Memoria flumazenil 7-16 (Same as: l 17:07: Romazicon) S No Notes: Memoria naloxone 7-16 Same as l 17:07: Narcan No Notes: Memoria diphenhydrA 7-16 (Same as: l MINE 17:07: Benadryl) S No Notes: Memoria ondansetron 7-16 (Same as: l 17:07: Zofran) MEDICATION WASTE Product Size: 4 mg Product Wasted: ___ mg ANES No Notes: Memoria dexamethaso 7-16 Concentrat l ne 17:07: ion: 4mg/ml ketAMINE No Route: IV, Mem oria (ANES) 7-16 Drug form: l 17:02: INJ, ONCE, Stop date: 10/11/21 12:02:00 CDT Lovenox No 40 mg, Memoria 7-16 Route: l 17:00: SUB-Q, Drug form: INJ, [id number], Dosing Weight 113.636, kg, Start date: 10/11/21 12:00:00 CDT, Duration: 30 day, Stop date: 11/10/21 0:00:00 CDT, 0 midazolam No Route: IV, Me moria (ANES) 7-16 Drug form: l 16:47: SOLN, 00 ONCE, Stop date: 10/11/21 11:47:00 CDT lidocaine No Route: IV, Me moria (ANES) 10-11 Drug form: l 16:47: INJ, ONCE, Stop date: 10/11/21 11:47:00 CDT propofol No Route: IV, Mem oria (ANES) 10-11 Drug form: l 16:47: INJ, ONCE, Stop date: 10/11/21 11:47:00 CDT rocuronium No Route: IV, M emoria (ANES) 10-11 Drug form: l 16:47: INJ, ONCE, Stop date: 10/11/21 11:47:00 CDT fentaNYL No Route: IV, Mem oria (ANES) 10-11 Drug form: l 16:47: INJ, ONCE, Stop date: 10/11/21 11:47:00 CDT dexamethaso No Route: IV, Memoria ne (ANES) 10-11 Drug form: l 16:47: INJ, ONCE, Stop date: 10/11/21 11:47:00 CDT ceFAZolin No Route: IV, Me moria (ANES) 10-11 Drug form: l 16:47: INJ, ONCE, Stop date: 10/11/21 11:47:00 CDT calcium No Route: IV, Bryant myriam chloride 10-11 Drug form: l (ANES) 20 16:13: INJ, Start He rmann mg 00 date: 10/11/21 11:13:00 CDT, Stop date: 10/11/21 12:13:00 CDT Lactated No Route: IV, Mem oria Ringers - Total l Injection 15:53: Volume: Nayeli nn IV (ANES) 00 1,000, 1000 mL Start date: 10/11/21 10:53:00 CDT, Stop date: 10/11/21 11:53:00 CDT tramadol No Notes: Not Mem oria 7- to exceed l 15:00: 400mg/day. Souleymane 00 (Same As: Ultram) Robaxin No Notes: Memoria 7-16 (Same l 15:00: as:Robaxin Souleymane 00 ) docusate-se No Notes: Bryant myriam nna 50 16 (Same as l mg-8.6 mg 14:00: Senokot-S) He rmann oral tablet 00 Equiv. to Kendra-Colac e. acetaminoph No Notes: Max Memoria en 10-11 acetaminop l 05:57: hen 4000 [place] 00 mg/day (4 gm/day). (Same as: Tylenol Extra Strength) gabapentin No Notes: Memor ia 16 (Same as: l 05:57: Neurontin) tramadol No Notes: Not Mem oria 16 to exceed l 05:57: 400mg/day. [place] 00 (Same As: Ultram) fentaNYL No Notes: Memoria -16 (Same as: l 02:58: Sublimaze) Souleymane 00 Preservati ve free. lidocaine No Notes: Memori a 10-11 (Same as: l 02:58: Xylocaine) ketOROLAC No 15 mg, Memori a 15 mg/mL 10-11 Route: l injectable 01:43: IVP, Drug He rmann solution 00 form: INJ, ONCE, Dosing Weight 113.636, kg, Priority: STAT, Start date: 10/10/21 20:43:00 CDT, Stop date: 10/10/21 20:43:00 CDT Isolyte S No Notes: Memori a PH-7.4 10-11 (Same as: l (Bolus) IV 01:05: Isolyte S He rmann 00 PH7.4, Normosol-R PH 7.4, Plasma-Lyt e A ) Saline No Notes: Memoria Flush 0.9% 10-10 (Same as: l 23:41: BD Posiflush) morphine No Notes: Memoria Sulfate 10-10 (Same l 23:41: as:MORPhin [place] 00 e Sulfate) ondansetron No Notes: Bryant myriam 7-15 (Same as: l 23:41: Zofran) Souleymane 00 MEDICATION WASTE Product Size: 4 mg Product Wasted: ___ mg Vital Signs Vital Name Observation Time Observation Value Comments Source Heart Rate 2021-10-14 21:20:45 Memorial [place] Respitory Rate 2021-10-14 21:20:45 Memori al [place] Systolic (mm Hg) 2021-10-14 21:20:27 Bryant rial [place] Diastolic (mm Hg) 2021-10-14 21:20:27 Mem orial [place] Heart Rate 2021-10-14 21:20:27 Memorial [place] Temperature Oral (F) 2021-10-14 21:20:04 98.6 F Memorial [place] Systolic (mm Hg) 2021-10-14 14:04:44 Bryant rial [place] Diastolic (mm Hg) 2021-10-14 14:04:44 Mem orial [place] Heart Rate 2021-10-14 14:04:44 Memorial [place] Respitory Rate 2021-10-14 13:21:07 Memori al [place] Systolic (mm Hg) 2021-10-14 13:20:39 Bryant rial [place] Diastolic (mm Hg) 2021-10-14 13:20:39 Mem orial [place] Temperature Oral (F) 2021-10-14 13:20:09 98.1 F Memorial [place] Respitory Rate 2021-10-14 09:00:17 Memori al [place] Temperature Oral (F) 2021-10-14 08:59:18 98.4 F [facility] [place] Temperature Oral (F) 2021-10-13 08:56:00 97.9 F [facility] [place] Heart Rate 2021-10-13 08:56:00 [facility] [place] Respitory Rate 2021-10-13 08:56:00 Memori al [place] Systolic (mm Hg) 2021-10-13 08:56:00 Bryant rial [place] Diastolic (mm Hg) 2021-10-13 08:56:00 Mem orial [place] Heart Rate 2021-10-13 05:06:06 Memorial [place] Respitory Rate 2021-10-13 05:06:06 Memori al [place] Systolic (mm Hg) 2021-10-13 05:05:52 Bryant rial [place] Diastolic (mm Hg) 2021-10-13 05:05:52 Mem orial [place] Heart Rate 2021-10-13 05:05:52 Memorial [place] Temperature Oral (F) 2021-10-13 01:37:00 97.8 F [facility] [place] Respitory Rate 2021-10-13 01:37:00 Memori al [place] Systolic (mm Hg) 2021-10-13 01:37:00 Bryant rial [place] Diastolic (mm Hg) 2021-10-13 01:37:00 Mem orial [place] Temperature Oral (F) 2021-10-12 22:00:10 97.6 F [facility] [place] Height 2021-10-11 09:08:00 149.86 cm Memorial [place] Weight 2021-10-11 09:08:00 [facility] [place] BMI Calculated 2021-10-11 09:08:00 Memori al [place] Height 2021-10-10 23:26:00 149.86 cm Memorial [place] BMI Calculated 2021-10-10 23:26:00 Memori al [place] Weight 2021-10-10 23:26:00 [facility] [place] Procedures This patient has no known procedures. Encounters Start End Encounter Admission Attending Care Care Encounter Source Date/Time Date/Time Type Type Clinicians Facility Department ID 2022-01-14 2022-01-14 [facility] [id number] [place] 13:15:00 13:15:00 [facility] 2022-01-14 2022-01-14 Outpatient [facility] [id number] [place] 13:15:00 13:15:00 [facility] 2021-11-26 2021-11-26 [id number] [place] 13:15:00 13:19:33 Visit Moreno CONSTANTINO [id number] [facility] [id number] 2021-11-26 2021-11-26 Outpatient [facility] [id number] [place] 13:15:00 13:15:00 Health 2021-11-20 2021-11-20 Outpatient [facility] [id number] [place] 12:00:00 16:17:41 [facility] 2021-11-20 2021-11-[address] [facility] [id number] [place] 12:00:00 16:16:22 [id number] [facility] MEDICAL [id number] [address] 5 [id number] 2021-11-06 2021-11-06 Outpatient [facility] [id number] [place] 00:00:00 12:00:08 Health 2021-11-06 2021-11-06 Office Tc [facility] [id number] [place] 11:30:00 11:59:06 Visit Zackary [place] [id number] H [facility] [id number] [place] [address] [id number] 2021-11-05 2021-11-05 Office MEGAN Morel 6414 [id number] [place] 13:00:00 13:54:56 Visit Moreno MEEKS [id number] Health [id number] 2021-11-05 2021-11-05 Outpatient [facility] [id number] [place] 13:00:00 13:54:45 [facility] 2021-10-10 2021-10-14 Inpatient [facility] hospital [id number] [facility] 23:27:00 23:54:[address] 2021-10-11 2021-10-14 Inpatient E SOLANGE JOSE [facility] [id number] [facility] 00:58:00 18:54:00 2021-10-10 2021-10-14 Outpatient Solange Jose [facility] [id number] 18:27:00 18:54:00 [place] [id number] 2021-10-11 2021-10-11 [facility] [id number] [place] 13:30:00 13:30:00 [facility] 2021-10-10 2021-10-10 Outpatient GÉNESIS [facility] VER[place] [id number] [facility] 17:11:00 23:59:00 [place] 2021-10-10 2021-10-10 Outpatient Solange Jose [facility] [id number] 18:27:00 18:27:00 Nathaniel Bryant Results Test Description Test Time Test Comments Results Result Comments Source CHEM [facility] 2021-10-13 05:49:00 Test Item Value Reference Range Interpretation Comme nts Glucose Lvl (test code = Glucose Lvl) 109 70-99 [facility]2022-07-18 05:49:00 Test Item Value Reference Range Interpretation Comments BUN (test code = BUN) 8 7-22 [facility]2022-07-18 05:49:00 Test Item Value Reference Range Interpretation Comments Creatinine Lvl (test code = Creatinine 0.76 0.50-1.40 Lvl) [facility]2022-07-18 05:49:00 Test Item Value Reference Range Interpretation Comments Sodium Lvl (test code = Sodium Lvl) 142 135-145 [facility]2022-07-18 05:49:00 Test Item Value Reference Range Interpretation Comments Potassium Lvl (test code = Potassium 3.9 3.5-5.1 Lvl) [facility]2022-07-18 05:49:00 Test Item Value Reference Range Interpretation Comments Chloride Lvl (test code = Chloride Lvl) 111 95-109 [facility]2022-07-18 05:49:00 Test Item Value Reference Range Interpretation Comments CO2 (test code = CO2) 24 24-32 [facility]2022-07-18 05:49:00 Test Item Value Reference Range Interpretation Comments Calcium Lvl (test code = Calcium Lvl) 8.5 8.5-10.5 [facility]2022-07-18 05:49:00 Test Item Value Reference Range Interpretation Comments AGAP (test code = AGAP) 10.9 10.0-20.0 [facility]2022-07-18 05:49:00 Test Item Value Reference Range Interpretation Comments eGFR (test code = eGFR) 109 [id number] 05:49:00 Test Item Value Reference Range Interpretation Comments RBC X 10x6 (test code = RBC X 10x6) 3.21 4.20-5.40 [facility] LancasterJfzovqxCRGGJEVDPN3673-90-31 05:49:00 Test Item Value Reference Range Interpretation Comments Hgb (test code = Hgb) 10.0 12.0-16.0 [place] 536182-07-18 05:49:00 Test Item Value Reference Range Interpretation Comments Hct (test code = Hct) 29.9 36.0-48.0 [place] 536182-07-18 05:49:00 Test Item Value Reference Range Interpretation Comments MCV (test code = MCV) 92.9 80.0-98.0 [place] 536182-07-18 05:49:00 Test Item Value Reference Range Interpretation Comments MCH (test code = MCH) 31.0 pg 27.0-31.0 [place] 536182-07-18 05:49:00 Test Item Value Reference Range Interpretation Comments MCHC (test code = MCHC) 33.4 32.0-36.0 [facility] LancasterSauurvcAXPJTIPKFP4413-70-51 05:49:00 Test Item Value Reference Range Interpretation Comments RDW (test code = RDW) 13.0 11.5-14.5 [place] 536182-07-18 05:49:00 Test Item Value Reference Range Interpretation Comments RBC Morph (test code = Normal (10/13/21 12:49 RBC Morph) AM) [facility] LancasterBfsjpncFIIXLCMOMF3377-41-75 05:49:00 Test Item Value Reference Range Interpretation Comments Plt Morph (test code = Normal (10/13/21 12:49 Plt Morph) AM) [facility] LancasterCktoxebSDHRRRVSWC4162-97-33 05:49:00 Test Item Value Reference Range Interpretation Comments Segs (test code = Segs) 62.9 45.0-75.0 [facility] LancasterYtphageFLLCMUYFWQ4143-67-70 05:49:00 Test Item Value Reference Range Interpretation Comments Lymphocytes (test code = Lymphocytes) 28.2 20.0-40.0 [place] 536182-07-18 05:49:00 Test Item Value Reference Range Interpretation Comments Monocytes (test code = Monocytes) 7.4 2.0-12.0 [place] 536182-07-18 05:49:00 Test Item Value Reference Range Interpretation Comments Eosinophils (test code = 1.0 See_Comment [A utomated message] The Eosinophils) system which ge nerated this result tra nsmitted reference range : <=4.0. The reference r steven was not used to int erpret this result as normal/abnormal . [place] 536182-07-18 05:49:00 Test Item Value Reference Range Interpretation Comments Basophils (test code = 0.5 See_Comment [Aut omated message] The Basophils) system which ge nerated this result tra nsmitted reference range : <=1.0. The reference r steven was not used to int erpret this result as normal/abnormal . [place] 536182-07-18 05:49:00 Test Item Value Reference Range Interpretation Comments Neutrophils # (test code = Neutrophils 7.0 1.5-8.1 #) [place] 536182-07-18 05:49:00 Test Item Value Reference Range Interpretation Comments Lymphocytes # (test code = Lymphocytes 3.1 1.0-5.5 #) [place] 536182-07-18 05:49:00 Test Item Value Reference Range Interpretation Comments Monocytes # (test code 0.8 See_Comment [Aut omated message] The = Monocytes #) system which generated this result tra nsmitted reference range : <=0.8. The reference r steven was not used to int erpret this result as normal/abnormal . [place] 536182-07-18 05:49:00 Test Item Value Reference Range Interpretation Comments Eosinophils # (test code 0.1 See_Comment [A utomated message] The = Eosinophils #) system whic h generated this result tra nsmitted reference range : <=0.5. The reference r steven was not used to int erpret this result as normal/abnormal . [place] 536182-07-18 05:49:00 Test Item Value Reference Range Interpretation Comments Basophils # (test code 0.1 See_Comment [Aut omated message] The = Basophils #) system which generated this result tra nsmitted reference range : <=0.2. The reference r steven was not used to int erpret this result as normal/abnormal . [place] 536182-07-18 05:49:00 Test Item Value Reference Range Interpretation Comments WBC X 10x3 (test code = WBC X 10x3) 11.2 3.7-10.4 [place] 536182-07-18 05:49:00 Test Item Value Reference Range Interpretation Comments Platelet (test code = Platelet) 192 133-450 [facility] LancasterYeyupstZNEFICJWPE0963-84-05 05:49:00 Test Item Value Reference Range Interpretation Comments MPV (test code = MPV) 8.2 7.4-10.4 [facility] Lancast[id number] 21:09:00 Test Item Value Reference Range Interpretation Comments MCHC (test code = MCHC) 33.9 32.0-36.0 [facility] Lancast[id number] 21:09:00 Test Item Value Reference Range Interpretation Comments RDW (test code = RDW) 13.2 11.5-14.5 [facility] Lancast[id number] 21:09:00 Test Item Value Reference Range Interpretation Comments Platelet (test code = Platelet) 256 133-450 [facility] LancasterXjejzbeEUIOTMFENR3523-26-71 21:09:00 Test Item Value Reference Range Interpretation Comments MPV (test code = MPV) 7.7 7.4-10.4 [facility] LancasterT[id number] 21:09:00 Test Item Value Reference Range Interpretation Comments Segs (test code = Segs) 86.1 45.0-75.0 [facility] LancasterCscgkpwULPAAHPUVX0501-67-98 21:09:00 Test Item Value Reference Range Interpretation Comments Lymphocytes (test code = Lymphocytes) 8.2 20.0-40.0 [facility] LancasterEryvqiyKSSJJAMVXP0743-63-06 21:09:00 Test Item Value Reference Range Interpretation Comments Monocytes (test code = Monocytes) 5.1 2.0-12.0 [place] 536182-07-16 21:09:00 Test Item Value Reference Range Interpretation Comments Eosinophils (test code = 0.5 See_Comment [A utomated message] The Eosinophils) system which ge nerated this result tra nsmitted reference range : <=4.0. The reference r steven was not used to int erpret this result as normal/abnormal . [place] 536182-07-16 21:09:00 Test Item Value Reference Range Interpretation Comments Basophils (test code = 0.1 See_Comment [Aut omated message] The Basophils) system which ge nerated this result tra nsmitted reference range : <=1.0. The reference r steven was not used to int erpret this result as normal/abnormal . [place] [id number] 21:09:00 Test Item Value Reference Range Interpretation Comments Neutrophils # (test code = Neutrophils 9.5 1.5-8.1 #) [place] [address]-07-16 21:09:00 Test Item Value Reference Range Interpretation Comments Lymphocytes # (test code = Lymphocytes 0.9 1.0-5.5 #) [place] [address]-07-16 21:09:00 Test Item Value Reference Range Interpretation Comments Monocytes # (test code 0.6 See_Comment [Aut omated message] The = Monocytes #) system which generated this result tra nsmitted reference range : <=0.8. The reference r steven was not used to int erpret this result as normal/abnormal . [place] [address]-07-16 21:09:00 Test Item Value Reference Range Interpretation Comments Eosinophils # (test code 0.1 See_Comment [A utomated message] The = Eosinophils #) system whic h generated this result tra nsmitted reference range : <=0.5. The reference r steven was not used to int erpret this result as normal/abnormal . [place] [id number] 21:09:00 Test Item Value Reference Range Interpretation Comments Glucose Lvl (test code = Glucose Lvl) 143 70-99 [place] 61873-07-16 21:09:00 Test Item Value Reference Range Interpretation Comments BUN (test code = BUN) 13 7-22 [place] 61873-07-16 21:09:00 Test Item Value Reference Range Interpretation Comments Creatinine Lvl (test code = Creatinine 0.89 0.50-1.40 Lvl) [place] 447582-07-16 21:09:00 Test Item Value Reference Range Interpretation Comments Sodium Lvl (test code = Sodium Lvl) 139 135-145 [place] 447582-07-16 21:09:00 Test Item Value Reference Range Interpretation Comments Potassium Lvl (test code = Potassium 4.6 3.5-5.1 Lvl) [place] [address]73-07-16 21:09:00 Test Item Value Reference Range Interpretation Comments Chloride Lvl (test code = Chloride Lvl) 109 95-109 [place] 447582-07-16 21:09:00 Test Item Value Reference Range Interpretation Comments CO2 (test code = CO2) 25 24-32 [place] 447582-07-16 21:09:00 Test Item Value Reference Range Interpretation Comments Calcium Lvl (test code = Calcium Lvl) 9.0 8.5-10.5 [place] 447582-07-16 21:09:00 Test Item Value Reference Range Interpretation Comments AGAP (test code = AGAP) 9.6 10.0-20.0 [place] 447582-07-16 21:09:00 Test Item Value Reference Range Interpretation Comments eGFR (test code = eGFR) 90 [place] 536182-07-16 21:09:00 Test Item Value Reference Range Interpretation Comments WBC (test code = WBC) 11.1 3.7-10.4 [place] 536182-07-16 21:09:00 Test Item Value Reference Range Interpretation Comments RBC (test code = RBC) 3.87 4.20-5.40 [place] 536182-07-16 21:09:00 Test Item Value Reference Range Interpretation Comments Hgb (test code = Hgb) 12.0 12.0-16.0 [place] 536182-07-16 21:09:00 Test Item Value Reference Range Interpretation Comments Hct (test code = Hct) 35.4 36.0-48.0 [place] 536182-07-16 21:09:00 Test Item Value Reference Range Interpretation Comments MCV (test code = MCV) 91.6 80.0-98.0 [place] 536182-07-16 21:09:00 Test Item Value Reference Range Interpretation Comments MCH (test code = MCH) 31.0 pg 27.0-31.0 [place] 447582-07-16 14:53:00 Test Item Value Reference Range Interpretation Comments Lactic Acid Lvl (test code = Lactic 1.6 0.5-2.2 Acid Lvl) [place] 447582-07-16 10:58:00 Test Item Value Reference Range Interpretation Comments Lactic Acid Lvl (test code = Lactic 2.2 0.5-2.2 Acid Lvl) [place] 447582-07-16 07:51:00 Test Item Value Reference Range Interpretation Comments Lactic Acid Lvl (test code = Lactic 2.4 0.5-2.2 Acid Lvl) [place] 447582-07-16 06:05:00 Test Item Value Reference Range Interpretation Comments Glucose Lvl (test code = Glucose Lvl) 141 70-99 [place] 447582-07-16 06:05:00 Test Item Value Reference Range Interpretation Comments BUN (test code = BUN) 12 7-22 [place] 447582-07-16 06:05:00 Test Item Value Reference Range Interpretation Comments Creatinine Lvl (test code = Creatinine 0.90 0.50-1.40 Lvl) [place] 447582-07-16 06:05:00 Test Item Value Reference Range Interpretation Comments Sodium Lvl (test code = Sodium Lvl) 143 135-145 [place] 447582-07-16 06:05:00 Test Item Value Reference Range Interpretation Comments Potassium Lvl (test code = Potassium 4.5 3.5-5.1 Lvl) [place] 447582-07-16 06:05:00 Test Item Value Reference Range Interpretation Comments Chloride Lvl (test code = Chloride Lvl) 111 95-109 [place] 447582-07-16 06:05:00 Test Item Value Reference Range Interpretation Comments CO2 (test code = CO2) 26 24-32 [place] 447582-07-16 06:05:00 Test Item Value Reference Range Interpretation Comments Calcium Lvl (test code = Calcium Lvl) 8.2 8.5-10.5 [place] 447582-07-16 06:05:00 Test Item Value Reference Range Interpretation Comments AGAP (test code = AGAP) 10.5 10.0-20.0 [place] 447582-07-16 06:05:00 Test Item Value Reference Range Interpretation Comments eGFR (test code = eGFR) 89 [facility]GEPT8838[facility]98-01 06:05:00 Test Item Value Reference Range Interpretation Comments WBC X 10x3 (test code = WBC X 10x3) 11.4 3.7-10.4 [place] 536182-07-16 06:05:00 Test Item Value Reference Range Interpretation Comments RBC X 10x6 (test code = RBC X 10x6) 4.16 4.20-5.40 [place] 536182-07-16 06:05:00 Test Item Value Reference Range Interpretation Comments Hgb (test code = Hgb) 12.6 12.0-16.0 [facility]SilenklPBSFDRDZNL1384-80-46 06:05:00 Test Item Value Reference Range Interpretation Comments Hct (test code = Hct) 38.3 36.0-48.0 [facility]KjqzfnoXVJBBKQAGV8834-23-01 06:05:00 Test Item Value Reference Range Interpretation Comments MCV (test code = MCV) 92.0 80.0-98.0 [facility] LancasterGosebcfUXLZVVXSRG6157-82-72 06:05:00 Test Item Value Reference Range Interpretation Comments MCH (test code = MCH) 30.4 pg 27.0-31.0 [facility] LancasterVhkwmkzVLBLAIZXQK7543-12-40 06:05:00 Test Item Value Reference Range Interpretation Comments MCHC (test code = MCHC) 33.0 32.0-36.0 [facility] LancasterPnzocxyLKHGOZYIOB3944-26-00 06:05:00 Test Item Value Reference Range Interpretation Comments RDW (test code = RDW) 12.9 11.5-14.5 [facility] LancasterBanfxubAKFUGFIVWW2576-15-60 06:05:00 Test Item Value Reference Range Interpretation Comments Platelet (test code = Platelet) 259 133-450 [facility] LancasterWcuehppRYPYJGQZAV5482-42-61 06:05:00 Test Item Value Reference Range Interpretation Comments MPV (test code = MPV) 7.5 7.4-10.4 [facility] LancasterHtunpziIXKKXDXCGF2271-80-61 06:05:00 Test Item Value Reference Range Interpretation Comments Segs (test code = Segs) 80.9 45.0-75.0 [facility] LancasterEnjyxheOEXTAZOWRM4065-36-91 06:05:00 Test Item Value Reference Range Interpretation Comments Lymphocytes (test code = Lymphocytes) 11.8 20.0-40.0 [facility] LancasterSrscjwmZXCOTMQWZH9463-36-30 06:05:00 Test Item Value Reference Range Interpretation Comments Monocytes (test code = Monocytes) 7.1 2.0-12.0 [place] 536182-07-16 06:05:00 Test Item Value Reference Range Interpretation Comments Eosinophils (test code = 0.1 See_Comment [A utomated message] The Eosinophils) system which ge nerated this result tra nsmitted reference range : <=4.0. The reference r steven was not used to int erpret this result as normal/abnormal . [facility] LancasterTqeqsspQPHRGGCIPN9910-11-99 06:05:00 Test Item Value Reference Range Interpretation Comments Basophils (test code = 0.1 See_Comment [Aut omated message] The Basophils) system which ge nerated this result tra nsmitted reference range : <=1.0. The reference r steven was not used to int erpret this result as normal/abnormal . [facility] LancasterChrkmugTZXFADMUWL9729-05-11 06:05:00 Test Item Value Reference Range Interpretation Comments Neutrophils # (test code = Neutrophils 9.2 1.5-8.1 #) [facility] LancasterIaeifoqWRQRATUAVW4015-03-18 06:05:00 Test Item Value Reference Range Interpretation Comments Lymphocytes # (test code = Lymphocytes 1.3 1.0-5.5 #) [facility] LancasterTaduotcSHSKNMDZEX2290-19-86 06:05:00 Test Item Value Reference Range Interpretation Comments Monocytes # (test code 0.8 See_Comment [Aut omated message] The = Monocytes #) system which generated this result tra nsmitted reference range : <=0.8. The reference r steven was not used to int erpret this result as normal/abnormal . [facility] AND [id number] 04:36:00 Test Item Value Reference Range Interpretation Comments UA Color (test code = Yellow (10/10/21 11:36 UA Color) PM) [facility] AND [id number] 04:36:00 Test Item Value Reference Range Interpretation Comments UA Turbidity (test code Slight Cloudy = UA Turbidity) (10/10/21 11:36 PM) [facility] AND [id number] 04:36:00 Test Item Value Reference Range Interpretation Comments UA Spec Grav (test code = UA Spec 1.025 1 Grav) [facility] AND [id number] 04:36:00 Test Item Value Reference Range Interpretation Comments UA pH (test code = UA pH) 6.0 1 5.0-8.0 [facility] AND [id number] 04:36:00 Test Item Value Reference Range Interpretation Comments UA Protein (test code = UA Protein) 30 mg/dL [facility] AND [id number] 04:36:00 Test Item Value Reference Range Interpretation Comments UA Glucose (test code Negative (10/10/21 11:36 = [facility]A Glucose) PM) [facility] [id number] 04:36:00 Test Item Value Reference Range Interpretation Comments UA Ketones (test code Negative *NA*(10/10/21 = UA Ketones) 11:36 PM) [facility] [id number] 04:36:00 Test Item Value Reference Range Interpretation Comments UA Bili (test code = Negative *NA*(10/10/21 UA Bili) 11:36 PM) [facility] [id number] 04:36:00 Test Item Value Reference Range Interpretation Comments UA Blood (test code = Large *ABN*(10/10/21 UA Blood) 11:36 PM) [facility] [id number] 04:36:00 Test Item Value Reference Range Interpretation Comments UA Urobilinogen (test code = UA 0.2 0.1-1.0 Urobilinogen) [facility] [id number] 04:36:00 Test Item Value Reference Range Interpretation Comments UA Nitrite (test code Positive *ABN*(10/10/21 = UA Nitrite) 11:36 PM) [facility] [id number] 04:36:00 Test Item Value Reference Range Interpretation Comments UA Leuk Est (test Negative (10/10/21 11:36 code = UA Leuk Est) PM) [facility] [id number] 04:36:00 Test Item Value Reference Range Interpretation Comments UA Sq Epi (test code = UA Sq Epi) Rare /LPF [facility] [id number] 04:36:00 Test Item Value Reference Range Interpretation Comments UA WBC (test code = UA WBC) 0-2 /HPF [facility] [id number] 04:36:00 Test Item Value Reference Range Interpretation Comments UA RBC (test code = UA RBC) 0-2 /HPF [facility] [id number] 04:36:00 Test Item Value Reference Range Interpretation Comments UA Bacteria (test code = UA Few /HPF Bacteria) [facility] [id number] 04:36:00 Test Item Value Reference Range Interpretation Comments UA Comment 1 (test LESS than 2.0 ml of code = UA Comment 1) urine submitted for testing. Microscopic performed on unspun specimen. J. HilburnMqhtrgaLYXCIRCNJW7867-24-74 23:53:00 Test Item Value Reference Range Interpretation Comments CDC HIV 4th GEN (test Negative *NA*(10/10/21 code = CDC HIV 4th 6:53 PM) GEN) [employer] HoldingsEswgazaPUMIPBDGPF1935-18-63 23:53:00 Test Item Value Reference Range Interpretation Comments Hep C Ab (test code = Hep C Ab) NON-REACTIVE [facility] WaurwvbMQTZWSALXC0877-35-95 23:53:00 Test Item Value Reference Range Interpretation Comments Hep Signal to Cut-Off (test code = Hep 0.03 1 Signal to Cut-Off) [facility] [id number] 23:48:00 Test Item Value Reference Range Interpretation Comments ABO/Rh (test code = ABO/Rh) O POS [facility] [id number] 23:48:00 Test Item Value Reference Range Interpretation Comments Antibody Scrn (test Negative (10/10/21 6:48 code = Antibody Scrn) PM) [employer] [id number] 23:48:00 Test Item Value Reference Range Interpretation Comments Total Protein (test code = Total 7.1 6.4-8.4 Protein) [employer]2022-07-15 23:48:00 Test Item Value Reference Range Interpretation Comments Albumin Lvl (test code = Albumin Lvl) 3.2 3.5-5.0 [employer]2022-07-15 23:48:00 Test Item Value Reference Range Interpretation Comments Globulin (test code = Globulin) 3.9 2.7-4.2 [employer]2022-07-15 23:48:00 Test Item Value Reference Range Interpretation Comments A/G Ratio (test code = A/G Ratio) 0.8 1 0.7-1.6 [employer]2022-07-15 23:48:00 Test Item Value Reference Range Interpretation Comments ALANINE AMINOTRANSFERASE 187 See_Comment [A utomated message] (test code = ALANINE The sys tem which AMINOTRANSFERASE) generated this result transmitted ref erence range: <=65. Th e reference range was not used to int erpret this result as normal/abnormal . [place] 447582-07-15 23:48:00 Test Item Value Reference Range Interpretation Comments AST (test code = AST) 170 See_Comment [Auto mated message] The system which ge nerated this result transmit yuniel reference range : <=37. The reference range was not used to interpr et this result as manohar l/abnormal. [place] 447582-07-15 23:48:00 Test Item Value Reference Range Interpretation Comments Alk Phos (test code = Alk Phos) 65 39-136 [place] 447582-07-15 23:48:00 Test Item Value Reference Range Interpretation Comments Bili Total (test code = Bili Total) 0.3 0.2-1.3 [place] 447582-07-15 23:48:00 Test Item Value Reference Range Interpretation Comments Bili Direct (test code no gt See_Comment [Aut omated message] The = Bili Direct) system which generated this result tra nsmitted reference range : <=0.3. The reference r steven was not used to int erpret this result as manohar l/abnormal. [place] 447582-07-15 23:48:00 Test Item Value Reference Range Interpretation Comments Bili Indirect Unable to See_Comment [Automated (test code = Bili Calculate message] T he system Indirect) which generated this result transmitted reference range : <=1.0. The reference range was not used to interpret this result as normal/abnormal . [place] 072272-07-15 23:48:00 Test Item Value Reference Range Interpretation Comments S Preg (test code = S Negative *NA*(10/10/21 Preg) 6:48 PM) [place] [address]242-07-15 23:48:00 Test Item Value Reference Range Interpretation Comments WBC X 10x3 (test code = WBC X 10x3) 18.6 3.7-10.4 [place] 536182-07-15 23:48:00 Test Item Value Reference Range Interpretation Comments Platelet (test code = Platelet) 278 133-450 [place] 536182-07-15 23:48:00 Test Item Value Reference Range Interpretation Comments MPV (test code = MPV) 7.8 7.4-10.4 [place] 536182-07-15 23:48:00 Test Item Value Reference Range Interpretation Comments ACT (TEG) Rapid (test code = ACT (TEG) 113 s 86-118 Rapid) [place] 536182-07-15 23:48:00 Test Item Value Reference Range Interpretation Comments Split Point Rapid (test code = Split 0.6 min Point Rapid) [place] 536182-07-15 23:48:00 Test Item Value Reference Range Interpretation Comments R-time Rapid (test code = R-time 0.7 min 0.4-0.7 Rapid) [place] 536182-07-15 23:48:00 Test Item Value Reference Range Interpretation Comments K-time Rapid (test code = K-time 1.0 min 0.6-2.3 Rapid) [place] [address]-07-15 23:48:00 Test Item Value Reference Range Interpretation Comments Angle Rapid (test code = Angle 78 degrees 64-80 Rapid) [facility] LancasterYxlqwgtWBPHPIIMWV3693-73-25 23:48:00 Test Item Value Reference Range Interpretation Comments Max Amplitude Rapid (test code = Max 69 mm 52-71 Amplitude Rapid) [place] 536182-07-15 23:48:00 Test Item Value Reference Range Interpretation Comments G-value Rapid (test code = G-value 11.3 5.0-11.6 Rapid) [place] 536182-07-15 23:48:00 Test Item Value Reference Range Interpretation Comments Estimated % Lysis Rapid 0.0 See_Comment [Au tomated message] The (test code = Estimated syste m which generated % Lysis Rapid) this result t ransmitted reference range : <=7.5. The reference r steven was not used to int erpret this result as normal/abnormal . [facility] LancasterCoxttvuPOSARPGHLI2418-60-18 23:48:00 Test Item Value Reference Range Interpretation Comments Segs (test code = Segs) 81.4 45.0-75.0 [place] 536182-07-15 23:48:00 Test Item Value Reference Range Interpretation Comments Lymphocytes (test code = Lymphocytes) 10.9 20.0-40.0 [place] 536182-07-15 23:48:00 Test Item Value Reference Range Interpretation Comments Monocytes (test code = Monocytes) 7.0 2.0-12.0 [place] 536182-07-15 23:48:00 Test Item Value Reference Range Interpretation Comments Eosinophils (test code = 0.5 See_Comment [A utomated message] The Eosinophils) system which ge nerated this result tra nsmitted reference range : <=4.0. The reference r steven was not used to int erpret this result as normal/abnormal . [facility] LancasterHhmqwicWNWFKHOBQU9608-25-45 23:48:00 Test Item Value Reference Range Interpretation Comments Basophils (test code = 0.2 See_Comment [Aut omated message] The Basophils) system which ge nerated this result tra nsmitted reference range : <=1.0. The reference r steven was not used to int erpret this result as normal/abnormal . [facility] LancasterQjykhcpFIUMWSZVUY4037-39-51 23:48:00 Test Item Value Reference Range Interpretation Comments Neutrophils # (test code = Neutrophils 15.2 1.5-8.1 #) [facility] LancasterPjhamxsKSOGCKUYXG8132-91-93 23:48:00 Test Item Value Reference Range Interpretation Comments Lymphocytes # (test code = Lymphocytes 2.0 1.0-5.5 #) [facility] LancasterSkkkoztYLJNVRXUZV7222-49-62 23:48:00 Test Item Value Reference Range Interpretation Comments Monocytes # (test code 1.3 See_Comment [Aut omated message] The = Monocytes #) system which generated this result tra nsmitted reference range : <=0.8. The reference r steven was not used to int erpret this result as normal/abnormal . [facility] LancasterKufgxaiIQWYOKPWCF1750-85-10 23:48:00 Test Item Value Reference Range Interpretation Comments Eosinophils # (test code 0.1 See_Comment [A utomated message] The = Eosinophils #) system whic h generated this result tra nsmitted reference range : <=0.5. The reference r steven was not used to int erpret this result as normal/abnormal . [facility]79[facility] 23:48:00 Test Item Value Reference Range Interpretation Comments Coronavirus (COVID-19) Not Detected (10/10/21 FRANKO (test code = 6:48 PM) Coronavirus (COVID-19) FRANKO) [facility] HospitalLodlaihTBKNIMLLNP8236-30-52 23:48:00 Test Item Value Reference Range Interpretation Comments Ethanol Lvl (test code = Ethanol Lvl) no gt [facility]KgxhqaeUWHXCJJWDT7976-69-63 23:48:00 Test Item Value Reference Range Interpretation Comments Etoh (%) (test code = Etoh (%)) no [facility]
[2022-02-14] MEDS ORDERED: KETOROLAC 30 MG/ML INJ ONE (22:03)
[2022-02-14] MEDS ORDERED: ONDANSETRON 4 MG (ODT) TAB ONE (22:03)
[2022-02-14 23:20] LABS: SARS-COV-2 RT PCR NEGATIVE (NEGATIVE)
--- NOTE | 2022-02-15 00:05 | ER ---
Nurse's Notes [facility] Name: Mel Moncada Age: 32 yrs Sex: Female : 1990 Arrival Date: 02/14/2022 Time: 21:32 Bed 18 Private MD: Diagnosis: Vomiting and diarrhea Presentation: 02/14 21:34 Chief complaint: N/V/D, headache, body aches, and chills since this morning. hb Coronavirus screen: Client presents with at least one sign or symptom that may indicate coronavirus-19. Standard/surgical mask placed on the client. Provider contacted for isolation considerations. Ebola Screen: No symptoms or risks identified at this time. Initial Sepsis Screen: Does the patient meet any 2 criteria? No. Patient's initial sepsis screen is negative. Does the patient have a suspected source of infection? No. Patient's initial sepsis screen is negative. Risk Assessment: Do you want to hurt yourself or someone else? Patient reports no desire to harm self or others. Onset of symptoms was February 14, 2022. 21:34 Method Of Arrival: Ambulatory hb 21:34 Acuity: LUISANA 3 hb Historical: - Allergies: 21:35 No Known Allergies; hb - PSHx: 21:35 Appendectomy; section; hb - Immunization history:: Adult Immunizations up to date. - Social history:: Smoking status: unknown. Screenin:45 Abuse screen: Denies threats or abuse. Nutritional screening: No deficits noted. bb Tuberculosis screening: No symptoms or risk factors identified. Fall Risk None identified. Assessment: 21:45 General: Appears in no apparent distress. Behavior is calm, cooperative. General: bb Reports she is not "feeling good". Pain: Complains of pain in abdomen. Neuro: Level of Consciousness is awake, alert, obeys commands, Oriented to person, place, time, situation. Cardiovascular: Capillary refill < 3 seconds Patient's skin is warm and dry. Respiratory: Respiratory effort is even, unlabored, Respiratory pattern is regular. GI: Abdomen is obese, Reports diarrhea, vomiting. Derm: Skin is pink, warm \\T\\ dry. Musculoskeletal: Circulation, motion, and sensation intact. 22:43 Reassessment: No changes from previously documented assessment. Patient is alert, bb oriented x 3, equal unlabored respirations, skin warm/dry/pink. pt awaiting diagnostic results. 23:45 Reassessment: Patient is alert, oriented x 3, equal unlabored respirations, skin bb warm/dry/pink. pt resting quietly, family at bedside. 02/15 00:19 Reassessment: Patient is alert, oriented x 3, equal unlabored respirations, skin bb warm/dry/pink. pt verbalized understanding of and agrees to plan of care discharge instructions given pt ambulated with steady gait to exit accompanied by family. Vital Signs: 02/14 21:34 BP 141 / 90; Pulse 126; Resp 18; Temp 98.9; Pulse Ox 96% on R/A; Weight 117.93 kg; hb Height 4 ft. 11 in. (149.86 cm); Pain 9/10; 23:43 BP 101 / 68; Pulse 102; Resp 18 S; Temp 98.1(O); Pulse Ox 94% ; bb 21:34 Body Mass Index 52.51 (117.93 kg, 149.86 cm) hb ED Course: 21:32 Patient arrived in ED. as 21:35 Triage completed. hb 21:36 Arm band placed on. hb 21:45 Maryanne Trujillo MD is Attending Physician. sd2 21:45 Patient has correct armband on for positive identification. Bed in low position. Call bb light in reach. Side rails up X 1. Warm blanket given. 22:18 COVID-19/FLU A+B/RSV Sent. bb 23:43 Shruthi Small, RN is Primary Nurse. bb 02/15 00:19 No provider procedures requiring assistance completed. Patient did not have IV access bb during this emergency room visit. Administered Medications: 02/14 22:18 Drug: Ketorolac 60 mg Route: IM; Site: right gluteus; bb 23:13 Follow up: Response: No adverse reaction; Pain is decreased bb 22:18 Drug: Ondansetron 4 mg Route: PO; bb 23:13 Follow up: Response: No adverse reaction bb Medication: 21:45 VIS not applicable for this client. bb Outcome: 02/15 00:04 Discharge ordered by . sd2 00:20 Discharged to home ambulatory, with family. bb 00:20 Condition: stable 00:20 Discharge instructions given to patient, Instructed on discharge instructions, follow up and referral plans. medication usage, Demonstrated understanding of instructions, follow-up care, medications, Prescriptions given X 1. 00:20 Patient left the ED. bb Signatures: Geena Adler Brenda RN RN Elba Gibbons RN RN Maryanne Hsu MD MD sd2
--- NOTE | 2022-02-15 00:06 | EDPHYS ---
Physician Documentation [facility] Name: Mel Moncada Age: 32 yrs Sex: Female : 1990 Arrival Date: 02/14/2022 Time: 21:32 Bed 18 Private MD: ED Physician Maryanne Trujillo HPI: 02/14 21:53 This 32 yrs old Female presents to ER via Ambulatory with complaints of sd2 Vomiting/Diarrhea. 21:53 32 yo F presents with CC of vomiting, diarrhea and body aches that started today. sd2 Reports daughter with similar symptoms that started yesterday. Unable to keep anything down today. Denies any CP or SOB. Not taking any OTC medications at home for symptoms.. Historical: - Allergies: 21:35 No Known Allergies; hb - PSHx: 21:35 Appendectomy; section; hb - Immunization history:: Adult Immunizations up to date. - Social history:: Smoking status: unknown. ROS: 21:53 Eyes: Negative for injury, pain, redness, and discharge, Cardiovascular: Negative for sd2 chest pain, palpitations, and edema, Respiratory: Negative for shortness of breath, cough, wheezing. 21:53 : Negative for dysuria, urinary frequency, hesitancy, urgency and hematuria. MS/Extremity: Negative for injury and deformity, Skin: Negative for injury, rash, and discoloration, Neuro: Negative for headache, numbness and tingling. 21:53 Constitutional: Positive for body aches, chills, Negative for weight loss. 21:53 Abdomen/GI: Positive for nausea and vomiting, diarrhea, abdominal cramps, Negative for Exam: 21:53 Constitutional: This is a well developed, well nourished patient who is awake, alert, sd2 and in no acute distress. Head/Face: Normocephalic, atraumatic. Eyes: EOMI, normal conjunctiva bilaterally Chest/axilla: Normal chest wall appearance and motion. Nontender with no deformity. Cardiovascular: Tachycardic rate and regular rhythm with a normal S1 and S2. No gallops, murmurs, or rubs. 2+ distal pulses. Respiratory: Lungs have equal breath sounds bilaterally, clear to auscultation and percussion. No rales, rhonchi or wheezes noted. No increased work of breathing, no retractions or nasal flaring. Abdomen/GI: Soft, mild generalized tenderness at site of patient's prior hernia which she states is longstanding, no rebound or guarding Skin: Warm, dry with normal turgor. Normal color with no rashes, no lesions, and no evidence of cellulitis. MS/ Extremity: Pulses equal, no cyanosis. Neurovascular intact. Full, normal range of motion. Ambulatory without difficulty. Psych: Awake, alert, with orientation to person, place and time. Behavior, mood, and affect are within normal limits. Vital Signs: 21:34 BP 141 / 90; Pulse 126; Resp 18; Temp 98.9; Pulse Ox 96% on R/A; Weight 117.93 kg; hb Height 4 ft. 11 in. (149.86 cm); Pain 9/10; 23:43 BP 101 / 68; Pulse 102; Resp 18 S; Temp 98.1(O); Pulse Ox 94% ; bb 21:34 Body Mass Index 52.51 (117.93 kg, 149.86 cm) hb MDM: 21:45 Patient medically screened. sd2 21:53 Differential diagnosis: Differential diagnosis includes but is not limited to: Viral sd2 URI, acute otitis media, acute otitis externa, pneumonia, UTI, COVID, flu, herpangina, GE among others. 02/15 00:02 Data reviewed: lab test result(s). Counseling: I had a detailed discussion with the sd2 patient and/or guardian regarding: the historical points, exam findings, and any diagnostic results supporting the discharge/admit diagnosis, lab results, the need for outpatient follow up, to return to the emergency department if symptoms worsen or persist or if there are any questions or concerns that arise at home. [facility] screen [facility] ED course: Labs reviewed. Viral swabs negative. VSS. Pt advised of continued supportive care for symptoms and need for outpatient follow up. suspect viral gastroenteritis. Verbalizes understanding of strict return precautions.. 02/14 21:56 Order name: COVID-19/FLU A+B/RSV; Complete Time: 23:35 sd2 Administered Medications: 02/14 22:18 Drug: Ketorolac 60 mg Route: IM; Site: right gluteus; bb 23:13 Follow up: Response: No adverse reaction; Pain is decreased bb 22:18 Drug: Ondansetron 4 mg Route: PO; bb 23:13 Follow up: Response: No adverse reaction bb Disposition Summary: 02/15/22 00:04 Discharge Ordered Location: Home sd2 Problem: new sd2 Symptoms: have improved sd2 Condition: Stable sd2 Diagnosis - Vomiting and diarrhea sd2 Followup: sd2 - With: Private Physician - When: 2 - 3 days - Reason: Recheck today's complaints, Continuance of care, Re-evaluation by your physician Discharge Instructions: - Discharge Summary Sheet sd2 - Food Choices to Help Relieve Diarrhea, Adult sd2 - Diarrhea, Adult sd2 - Vomiting, Adult sd2 Forms: - Medication Reconciliation Form sd2 - Thank You Letter sd2 - Antibiotic Education sd2 - Prescription Opioid Use sd2 Prescriptions: - ondansetron 8 mg Oral tablet,disintegrating - take 1 tablet by ORAL route every 8 hours As needed; 15 tablet; Refills: 0, sd2 Product Selection Permitted Signatures: Dispatcher [employer] Shruthi Ochoa RN RN bb Baxter, Heather, RN RN hb Dunlop, Stephanie, MD MD sd2
[2022-02-15 00:25] VITALS: BP 101/68; TEMP 98.1; O2SAT 94
== END 2022-02-15 00:20 | disposition home or self-care (01) ==
LOC: ER 21:27
DX: R11.10 Vomiting, unspecified (principal); R19.7 Diarrhea, unspecified; Z20.822 Contact with and (suspected) exposure to COVID-19
CPT/HCPCS: 0241U; 96372; 99283; Q0162

== ENCOUNTER 2022-05-28 10:14 | Emergency (ER) | payer OTHER, SELFPAY ==
--- OUTSIDE RECORDS SUMMARY | 2022-05-28 10:24 | XMS REPORT | Continuity of Care Document ---
:1990 Author Organization [facility] t Address [address] [place] [address] Care Team Providers Name Role Phone No [...] Active [place] fracture fracture 11-07 Health of second of second 00:00: metatarsal metatarsal 00 bone of bone of right foot right foot with with routine routine healing healing Right Right Disease Active [place] wrist pain wrist pain 8-11 He alth 00:00: 00 HEPATIC HEPATIC Diagnosis Active 2021-10-10 Memoria LACERATION LACERATION 10-10 22:38:00 l PULMONARY PULMONARY 00:00: Herm susana CONTUSION CONTUSION 00 Active 10/10/2021 [facility] LIFE LIFE Diagnosis Active 2021-11-28 Mem oria FLIGHT FLIGHT 10-10 16:48:00 l TRANSFER TRANSFER 00:00: Efrain n Active 00 10/10/2021 [facility] CLOSED CLOSED Diagnosis Active 2021-11-28 Me moria TRAUMATIC TRAUMATIC 10-10 16:48:00 l DISPLACED DISPLACED 00:00: Herm susana FRACTURE FRACTURE 00 OF D OF D Active 10/10/2021 [facility] History of Past Illness Condition Condition Condition Status Onset Resolution Last Treating Co mments Source Name Details Category Date Date Treatment Clinician Date Other Other Problem 2021-10-17 2021-10-17 M emoria specified specified 10-14 00:26:34 00:26:34 l disorders disorders 20:22: Herm susana of adrenal of adrenal 00 gland gland 10/14/2021 10/17/2021 [facility] Unspecifie Problem 2021-10-17 2021-10-17 Memoria d injury Unspecifie 10-11 00:26:34 00:26:34 l of liver, d injury 13:23: Nayeli nn initial of liver, 00 encounter initial encounter 10/11/2021 10/17/2021 [facility] Allergies, Adverse Reactions, Alerts Allergy Allergy Status Severity Reaction(s) Onset Inactive Treating Comm ents Source Name Type Date Date Clinician Latex Propensi Active Rash [place] ty to [facility] Health adverse 00:00: reaction 00 s No Known No Known Active Memori a Medicati Medicati l on on Souleymane Galindo Allergtabby s s Social History Social Habit Start Date Stop Date Quantity Comments Source Exposure to SARS-CoV-2 2021-11-16 2021-11-26 Not sure [facility] (event) 00:00:00 11:27:00 Sex Assigned At [birth year] [facility] 00:00:00 00:00:00 Smoking Status Start Date Stop Date Source Tobacco smoking consumption unknown [facility] Social History 2021-10-10 23:52:27 [facility] Medications Ordered Filled Start Stop Current Ordering Indication Dosage Frequency Signature Comments Components Source Medication Medication Date Date Medication? Clinician (SIG) Name Name MiraLax 2-0 No 17 gm, Memoria 7-20 Route: PO, l 14:00: Daily, Dosing Weight 113.636, kg, Start date: 10/15/21 9:00:00 CDT, Duration: 30 day, Stop date: 11/13/21 9:00:00 CDT MiraLax 2-0 No 17 gm, Memoria 7-20 Route: PO, l 14:00: Daily, Dosing Weight 113.636, kg, Start date: 10/15/21 9:00:00 CDT, Duration: 30 day, Stop date: 11/13/21 9:00:00 CDT aspirin 325 2-0 No 325 mg, 1 M emoria mg tablet 7-19 tab, l 22:00: Route: PO, Drug form: TAB, BID, Dosing Weight 113.636, kg, Start date: 10/14/21 17:00:00 CDT, Duration: 30 day, Stop date: 11/13/21 9:00:00 CDT, 0 aspirin 325 2-0 No 325 mg, 1 M emoria mg tablet 7-19 tab, l 22:00: Route: PO, Souleymane 00 Drug form: TAB, BID, Dosing Weight 113.636, kg, Start date: 10/14/21 17:00:00 CDT, Duration: 30 day, Stop date: 11/13/21 9:00:00 CDT, 0 methocarbam 2022-0 Yes 750 mg = 1 Memoria ol 750 mg 7-19 tab, PO, l oral tablet 21:37: Q8Hnow, X H erm 6 week, # 126 tab, 0 Refill(s), Pharmacy: [facility] #[id number], 149.86, cm, 10/11/21 4:08:00 CDT, Height, 113.636, kg, 10/11/21 4:08:00 CDT, Weight methocarbam 2-0 Yes 750 mg = 1 Memoria ol 750 mg 7-19 tab, PO, l oral tablet 21:37: Q8Hnow, X H ermann 00 6 week, # 126 tab, 0 Refill(s), Pharmacy: [facility] #[id number], 149.86, cm, 10/11/21 4:08:00 CDT, Height, 113.636, kg, 10/11/21 4:08:00 CDT, Weight acetaminoph 2022-0 Yes 1 gm = 2 Me moria en 500 mg 7-19 tab, PO, l oral 21:36: Q6H, X 6 [place] tablet. 00 week, # 336 tab, 0 Refill(s), Pharmacy: [facility][id number], 149.86, cm, 10/11/21 4:08:00 CDT, Height, 113.636, kg, 10/11/21 4:08:00 CDT, Weight aspirin 325 2-0 Yes 325 mg = 1 Memoria mg tablet 7-19 tab, PO, l 21:36: BID, # 42 Souleymane 00 tab, 0 Refill(s), Pharmacy: [facility] #[id number], 149.86, cm, 10/11/21 4:08:00 CDT, Height, 113.636, kg, 10/11/21 4:08:00 CDT, Weight gabapentin 2-0 Yes 600 mg = 2 M emoria 300 mg oral 7-19 cap, PO, l capsule 21:36: Q8H, # 252 Herm susana 00 cap, 0 Refill(s), Pharmacy: [facility] #[id number], 149.86, cm, 10/11/21 4:08:00 CDT, Height, 113.636, kg, 10/11/21 4:08:00 CDT, Weight acetaminoph 2022-0 Yes 1 gm = 2 Me moria en 500 mg 7-19 tab, PO, l oral 21:36: Q6H, X 6 [place] tablet. 00 week, # 336 tab, 0 Refill(s), Pharmacy: [facility] #[id number], 149.86, cm, 10/11/21 4:08:00 CDT, Height, 113.636, kg, 10/11/21 4:08:00 CDT, Weight aspirin 325 Yes 325 mg = 1 Memoria mg tablet 7-19 tab, PO, l 21:36: BID, # 42 [place] 00 tab, 0 Refill(s), Pharmacy: [facility] #[id number], 149.86, cm, 10/11/21 4:08:00 CDT, Height, 113.636, kg, 10/11/21 4:08:00 CDT, Weight gabapentin Yes 600 mg = 2 M emoria 300 mg oral 7-19 cap, PO, l capsule 21:36: Q8H, # 252 Herm susana 00 cap, 0 Refill(s), Pharmacy: [facility] #[id number], 149.86, cm, 10/11/21 4:08:00 CDT, Height, 113.636, kg, 10/11/21 4:08:00 CDT, Weight MiraLax No Notes: Memoria 7-19 Dissolve l 15:00: in 8 oz of [place] 00 water or juice. (Same as: Miralax) MiraLax No Notes: Memoria 7-19 Dissolve l 15:00: in 8 oz of [place] 00 water or juice. (Same as: Miralax) Tums No Notes: Memoria 7-19 (Same As: l 14:32: Tums) Calcium Carbonate 500 mg = 200 mg elemental calcium Dose = mg calcium carbonate ( mg elemental calcium) Tums No Notes: Memoria 7-19 (Same As: l 14:32: Tums) Calcium Carbonate 500 mg = 200 mg elemental calcium Dose = mg calcium carbonate ( mg elemental calcium) Zofran No Notes: Memoria 7-18 (Same as: l 13:00: Zofran) Souleymane 00 MEDICATION WASTE Product Size: 4 mg Product Wasted: ___ mg Zofran No Notes: Memoria 7-18 (Same as: l 13:00: Zofran) Souleymane 00 MEDICATION WASTE Product Size: 4 mg Product Wasted: ___ mg docusate-se No Notes: Bryant myriam nna 50 7-17 (Same as l mg-8.6 mg 22:00: Senokot-S) He rmann oral tablet 00 Equiv. to Kendra-Colac e. docusate-se No Notes: Bryant myriam nna 50 7-17 (Same as l mg-8.6 mg 22:00: Senokot-S) He rmann oral tablet 00 Equiv. to Kendra-Colac e. gabapentin No Notes: Memor ia 7-17 (Same as: l 21:00: Neurontin) gabapentin No Notes: Memor ia 7-17 (Same as: l 21:00: Neurontin) Omnipaque No 80 mL, Memori a 350 mg/mL 7-17 Route: l 19:52: IVP, Drug Form: SOLN, Dosing Weight 113.636, kg, ONCALL, STAT, Start date: 10/12/21 14:52:00 CDT, Duration: 1 doses or times, Dose = 2.2ml/kg, Max dose = 100ml -- "To be infused by Radiology Staff ONLY" Omnipaque No 80 mL, Memori a 350 mg/mL 7-17 Route: l 19:52: IVP, Drug Form: SOLN, Dosing Weight 113.636, kg, ONCALL, STAT, Start date: 10/12/21 14:52:00 CDT, Duration: 1 doses or times, Dose = 2.2ml/kg, Max dose = 100ml -- "To be infused by Radiology Staff ONLY" Isolyte S No Notes: Memori a PH 7.4 7-17 (Same as: l 1,000 mL 04:57: Isolyte S Herm susana 00 PH7.4, Normosol-R PH 7.4, Plasma-Lyt e A ) Isolyte S No Notes: Memori a PH 7.4 7-17 (Same as: l 1,000 mL 04:57: Isolyte S Herm susana 00 PH7.4, Normosol-R PH 7.4, Plasma-Lyt e A ) Isolyte S 0 No 500 mL, Memor ia PH-7.4 7-17 Infuse l (Bolus) IV 01:17: Over: 1 Herm susana 00 hr, Route: IV, Drug form: INJ, ONCE, Priority: STAT, Dosing Weight 113.636 kg, Start date: 10/11/21 20:17:00 CDT, Stop date: 10/11/21 20:17:00 CDT, Bolus Dose Isolyte S 2021-0 No 500 mL, Memor ia PH-7.4 7-17 Infuse l (Bolus) IV 01:17: Over: 1 Herm susana 00 hr, Route: IV, Drug form: INJ, ONCE, Priority: STAT, Dosing Weight 113.636 kg, Start date: 10/11/21 20:17:00 CDT, Stop date: 10/11/21 20:17:00 CDT, Bolus Dose ceFAZolin No Notes: Memori a 7-17 (Same as l 01:00: Ancef) ceFAZolin No Notes: Memori a 7-17 (Same as l 01:00: Ancef) Lovenox No Notes: Memoria 7-16 (Same as: l 20:00: Lovenox) Lovenox No Notes: Memoria 7-16 (Same as: l 20:00: Lovenox) ondansetron No Route: IV, Memoria (ANES) 7-16 Drug form: l 18:49: INJ, ONCE, Stop date: 10/11/21 13:49:00 CDT ondansetron No Route: IV, Memoria (ANES) 7-16 Drug form: l 18:49: INJ, ONCE, Stop date: 10/11/21 13:49:00 CDT glycopyrrol No Route: IV, Memoria ate (ANES) 7-16 Drug form: l 18:44: INJ, ONCE, Stop date: 10/11/21 13:44:00 CDT neostigmine No Route: IV, Memoria (ANES) 7-16 Drug form: l 18:44: INJ, ONCE, Stop date: 10/11/21 13:44:00 CDT glycopyrrol No Route: IV, Memoria ate (ANES) 7-16 Drug form: l 18:44: INJ, ONCE, Stop date: 10/11/21 13:44:00 CDT neostigmine No Route: IV, Memoria (ANES) 7-16 Drug form: l 18:44: INJ, ONCE, Stop date: 10/11/21 13:44:00 CDT hydromorpho No Route: IV, Memoria ne (ANES) 7-16 Drug form: l 18:29: INJ, ONCE, Stop date: 10/11/21 13:29:00 CDT hydromorpho No Route: IV, Memoria ne (ANES) 7-16 Drug form: l 18:29: INJ, ONCE, Stop date: 10/11/21 13:29:00 CDT phenylephri No Route: IV, Memoria ne (ANES) 7-16 Drug form: l 17:13: INJ, ONCE, Stop date: 10/11/21 12:13:00 CDT phenylephri No Route: IV, Memoria ne (ANES) -16 Drug form: l 17:13: INJ, ONCE, Stop date: 10/11/21 12:13:00 CDT ANES No Notes: Memoria hydrALAZINE 7-16 (Same as: l 17:07: Apresoline ) Push [...] l mg 17:07: Roxicodone ) release tablet No Notes: Memoria fentaNYL 7-16 (Same as: l 17:07: Sublimaze) Preservati ve free. ANE No Notes: Memoria HYDROmorpho 7-16 Same as l ne 17:07: Dilaudid No Notes: Memoria flumazenil 7-16 (Same as: l 17:07: Romazicon) ANE No Notes: Memoria naloxone 7-16 Same as l 17:07: Narcan No Notes: Memoria diphenhydrA 7-16 (Same as: l MINE 17:07: Benadryl) No Notes: Memoria ondansetron 7-16 (Same as: l 17:07: Zofran) MEDICATION WASTE Product Size: 4 mg Product Wasted: ___ mg ANES No Notes: Memoria dexamethaso 7-16 Concentrat l ne 17:07: ion: 4mg/ml ANE No Notes: Memoria hydrALAZINE 7-16 (Same as: l 17:07: Apresoline ) Push over 5 minutes ANE No 10 mg, 2 Memoria labetalol 7-16 [...] as: l 17:07: Sublimaze) Preservati ve free. ANE No Notes: Memoria HYDROmorpho 7-16 Same as l ne 17:07: Dilaudid No Notes: Memoria flumazenil 7-16 (Same as: l 17:07: Romazicon) No Notes: Memoria naloxone 7-16 Same as l 17:07: Narcan S No Notes: Memoria diphenhydrA 7-16 (Same as: l MINE 17:07: Benadryl) No Notes: Memoria ondansetron 7-16 (Same as: l 17:07: Zofran) MEDICATION WASTE Product Size: 4 mg Product Wasted: ___ mg ANES No Notes: Memoria dexamethaso -16 Concentrat l ne 17:07: ion: 4mg/ml ketAMINE No Route: IV, Mem oria (ANES) - Drug form: l 17:02: INJ, ONCE, Stop date: 10/11/21 12:02:00 CDT ketAMINE No Route: IV, Mem oria (ANES) -16 Drug form: l 17:02: INJ, ONCE, Stop date: 10/11/21 12:02:00 CDT Lovenox 2021-0 No 40 mg, Memoria 10-11 Route: l 17:00: SUB-Q, Drug form: INJ, [id number], Dosing Weight 113.636, kg, Start date: 10/11/21 12:00:00 CDT, Duration: 30 day, Stop date: 11/10/21 0:00:00 CDT, 0 Lovenox 2021-0 No 40 mg, Memoria 10-11 Route: l 17:00: SUB-Q, Drug form: INJ, [id number], Dosing Weight 113.636, kg, Start date: 10/11/21 12:00:00 CDT, Duration: 30 day, Stop date: 11/10/21 0:00:00 CDT, 0 midazolam No Route: IV, Me moria (ANES) -16 Drug form: l 16:47: SOLN, Souleymane 00 ONCE, Stop date: 10/11/21 11:47:00 CDT lidocaine 0 No Route: IV, Me moria (ANES) 10-11 Drug form: l 16:47: INJ, ONCE, Souleymane 00 Stop date: 10/11/21 11:47:00 CDT propofol 0 No Route: IV, Mem oria (ANES) 10-11 [...] INJ, ONCE, Stop date: 10/11/21 11:47:00 CDT midazolam No Route: IV, Me moria (ANES) 10-11 Drug form: l 16:47: SOLN, Souleymane 00 ONCE, Stop date: 10/11/21 11:47:00 CDT lidocaine No Route: IV, Me moria (ANES) 10-11 Drug form: l 16:47: INJ, ONCE, Stop date: 10/11/21 11:47:00 CDT propofol 0 No Route: IV, Mem oria (ANES) 10-11 Drug form: l 16:47: INJ, ONCE, Stop date: 10/11/21 11:47:00 CDT rocuronium 0 No Route: IV, M emoria (ANES) 7-16 Drug form: l 16:47: INJ, ONCE, Stop date: 10/11/21 11:47:00 CDT fentaNYL No Route: IV, Mem oria (ANES) 7-16 Drug form: l 16:47: INJ, ONCE, Stop date: 10/11/21 11:47:00 CDT dexamethaso No Route: IV, Memoria ne (ANES) 7-16 Drug form: l 16:47: INJ, ONCE, Stop date: 10/11/21 11:47:00 CDT ceFAZolin No Route: IV, Me moria (ANES) 7-16 Drug form: l 16:47: INJ, ONCE, Stop date: 10/11/21 11:47:00 CDT calcium No Route: IV, Bryant myriam chloride 7-16 Drug form: l (ANES) 20 16:13: INJ, Start He rmann mg 00 date: 10/11/21 11:13:00 CDT, Stop date: 10/11/21 12:13:00 CDT calcium No Route: IV, Bryant myriam chloride 7-16 Drug form: l (ANES) 20 16:13: INJ, Start He rmann mg 00 date: 10/11/21 11:13:00 CDT, Stop date: 10/11/21 12:13:00 CDT Lactated No Route: IV, Mem oria Ringers 7-16 Total l Injection 15:53: Volume: Nayeli nn IV (ANES) 00 1,000, 1000 mL Start date: 10/11/21 10:53:00 CDT, Stop date: 10/11/21 11:53:00 CDT Lactated No Route: IV, Mem oria Ringers 7-16 Total l Injection 15:53: Volume: Nayeli nn IV (ANES) 00 1,000, 1000 mL Start date: 10/11/21 10:53:00 CDT, Stop date: 10/11/21 11:53:00 CDT tramadol No Notes: Not Mem oria 7-16 to exceed l 15:00: 400mg/day. Souleymane 00 (Same As: Ultram) Robaxin No Notes: Memoria 7-16 (Same l 15:00: as:Robaxin [place] 00 ) tramadol No Notes: Not Mem oria 7-16 to exceed l 15:00: 400mg/day. Souleymane 00 (Same As: Ultram) Robaxin No Notes: Memoria 7-16 (Same l 15:00: as:Robaxin Souleymane 00 ) docusate-se No Notes: Bryant myriam nna 50 7-16 (Same as l mg-8.6 mg 14:00: Senokot-S) He rmann oral tablet 00 Equiv. to Kendra-Colac e. docusate-se No Notes: Bryant myriam nna 50 7-16 (Same as l mg-8.6 mg 14:00: Senokot-S) He rmann oral tablet 00 Equiv. to Kendra-Colac e. acetaminoph No Notes: Max Memoria en 7-16 acetaminop l 05:57: hen 4000 [place] 00 mg/day (4 gm/day). (Same as: Tylenol Extra Strength) gabapentin No Notes: Memor ia 7-16 (Same as: l 05:57: Neurontin) Souleymane 00 tramadol No Notes: Not Mem oria 7-16 to exceed l 05:57: 400mg/day. [place] 00 (Same As: Ultram) acetaminoph No Notes: Max Memoria en 7-16 acetaminop l 05:57: hen 4000 [place] 00 mg/day (4 gm/day). (Same as: Tylenol Extra Strength) gabapentin No Notes: Memor ia 7-16 (Same as: l 05:57: Neurontin) [place] 00 tramadol No Notes: Not Mem oria 7-16 to exceed l 05:57: 400mg/day. Souleymane 00 (Same As: Ultram) fentaNYL No Notes: Memoria 7-16 (Same as: l 02:58: Sublimaze) [place] 00 Preservati ve free. lidocaine No Notes: Memori a 7-16 (Same as: l 02:58: Xylocaine) fentaNYL No Notes: Memoria 7-16 (Same as: l 02:58: Sublimaze) Preservati ve free. lidocaine No Notes: Memori a 7-16 (Same as: l 02:58: Xylocaine) ketOROLAC No 15 mg, Memori a 15 mg/mL 16 Route: l injectable 01:43: IVP, Drug He rmann solution 00 form: INJ, ONCE, Dosing Weight 113.636, kg, Priority: STAT, Start date: 10/10/21 20:43:00 CDT, Stop date: 10/10/21 20:43:00 CDT ketOROLAC No 15 mg, Memori a 15 mg/mL 10-11 Route: l injectable 01:43: IVP, Drug He rmann solution 00 form: INJ, ONCE, Dosing Weight 113.636, kg, Priority: STAT, Start date: 10/10/21 20:43:00 CDT, Stop date: 10/10/21 20:43:00 CDT Isolyte S No Notes: Memori a PH-7.4 7-16 (Same as: l (Bolus) IV 01:05: Isolyte S He rmann 00 PH7.4, Normosol-R PH 7.4, Plasma-Lyt e A ) Isolyte S No Notes: Memori a PH-7.4 7-16 (Same as: l (Bolus) IV 01:05: Isolyte S He rmann 00 PH7.4, Normosol-R PH 7.4, Plasma-Lyt e A ) Saline No Notes: Memoria Flush 0.9% -15 (Same as: l 23:41: BD Posiflush) morphine No Notes: Memoria Sulfate 7-15 (Same l 23:41: as:MORPhin e Sulfate) ondansetron No Notes: Bryant myriam 7-15 (Same as: l 23:41: Zofran) MEDICATION WASTE Product Size: 4 mg Product Wasted: ___ mg Saline No Notes: Memoria Flush 0.9% 7-15 (Same as: l 23:41: BD [place] 00 Posiflush) morphine No Notes: Memoria Sulfate 7-15 (Same l 23:41: as:MORPhin [place] 00 e Sulfate) ondansetron No Notes: Bryant myriam 7-15 (Same as: l 23:41: Zofran) [place] 00 MEDICATION WASTE Product Size: 4 mg Product Wasted: ___ mg Vital Signs Vital Name Observation Time Observation Value Comments Source Heart Rate 2021-10-14 21:20:45 Memorial [place] Respitory Rate 2021-10-14 21:20:45 Memori al [place] Systolic (mm Hg) 2021-10-14 21:20:27 Bryant rial [place]le[place] Diastolic (mm Hg) 2021-10-14 21:20:27 Mem orial [place] Heart Rate 2021-10-14 21:20:27 Memorial [place] Temperature Oral (F) 2021-10-14 21:20:04 98.6 F Memorial [place] Systolic (mm Hg) 2021-10-14 14:04:44 Bryant rial [place] Diastolic (mm Hg) 2021-10-14 14:04:44 Mem orial [place] Heart Rate 2021-10-14 14:04:44 Memorial [place] Respitory Rate 2021-10-14 13:21:07 Memori al [place] Systolic (mm Hg) 2021-10-14 13:20:39 Bryant rial [place] Diastolic (mm Hg) 2021-10-14 13:20:39 Mem orial [place] Temperature Oral (F) 2021-10-14 13:20:09 98.1 F Memorial [place] Respitory Rate 2021-10-14 09:00:17 Memori al [place] Temperature Oral (F) 2021-10-14 08:59:18 98.4 F [facility] [place] Temperature Oral (F) 2021-10-13 08:56:00 97.9 F Memorial [place] Heart Rate 2021-10-13 08:56:00 Memorial [place] Respitory Rate 2021-10-13 08:56:00 Memori al [place] Systolic (mm Hg) 2021-10-13 08:56:00 Bryant rial [place] Diastolic (mm Hg) 2021-10-13 08:56:00 Mem orial [place] Heart Rate 2021-10-13 05:06:06 Memorial [place] Respitory Rate 2021-10-13 05:06:06 Memori al [place] Systolic (mm Hg) 2021-10-13 05:05:52 Bryant rial [place] Diastolic (mm Hg) 2021-10-13 05:05:52 Mem orial [place] Heart Rate 2021-10-13 05:05:52 Memorial [place] Temperature Oral (F) 2021-10-13 01:37:00 97.8 F [facility] [place] Respitory Rate 2021-10-13 01:37:00 Memori al [place] Systolic (mm Hg) 2021-10-13 01:37:00 Bryant rial [place] Diastolic (mm Hg) 2021-10-13 01:37:00 Mem orial [place] Temperature Oral (F) 2021-10-12 22:00:10 97.6 F [facility] [place] Height 2021-10-11 09:08:00 149.86 cm [facility] [place] Weight 2021-10-11 09:08:00 [facility] [place] BMI Calculated 2021-10-11 09:08:00 Memori al [place] Height 2021-10-10 23:26:00 149.86 cm [facility] [place] BMI Calculated 2021-10-10 23:26:00 Memori al [place] Weight 2021-10-10 23:26:00 [facility] [place] Procedures This patient has no known procedures. Encounters Start End Encounter Admission Attending Care Care Encounter Source Date/Time Date/Time Type Type Clinicians Facility Department ID 2022-01-14 2022-01-14 Outpatient JOHN [facility] [id number] [place] 13:15:00 13:15:00 [facility] 2022-01-14 2022-01-14 Outpatient [facility] [id number] [place] 13:15:00 13:15:00 [facility] 2021-11-26 2021-11-26 Office John [facility] [id number] [place] 13:15:00 13:19:[address] [id number] Health [id number] 2021-11-26 2021-11-26 Outpatient [facility] [id number] [place] 13:15:00 13:15:00 Health 2021-11-20 2021-11-20 Outpatient [facility] [id number] [place] 12:00:00 16:17:41 Health 2021-11-20 2021-11-20 Office MEGAN Montez [facility] [id number] [place] 12:00:00 16:16:22 Visit Zackary DORANTES [id number] H [facility] MED[facility] [id number] [address] 1 [id number] 2021-11-06 2021-11-06 Outpatient [facility] [id number] [place] 00:00:00 12:00:08 Health 2021-11-06 2021-11-06 Office MEGAN Montez [facility] [id number] [place] 11:30:00 11:59:06 Visit Zackary DORANTES [id number] H [facility] [id number] [address] 4 [id number] 2021-11-05 2021-11-05 Office MEGAN Morel 6414 [id number] [place] 13:00:00 13:54:56 Visit Moreno ALEXANDER [id number] Health [id number] 2021-11-05 2021-11-05 Outpatient [facility] [id number] [place] 13:00:00 13:54:45 Health 2021-10-10 2021-10-14 Inpatient nullFlavo [facility] [id number] Memoria 23:27:00 23:54:[address] 2021-10-10 2021-10-14 Inpatient nullFlavo [facility] [id number] Memoria 23:27:00 23:54:[address] 2021-10-11 2021-10-14 Inpatient SOLANGE [facility] [id number] [facility] 00:58:00 18:54:00 2021-10-10 2021-10-14 Outpatient Solange Jose [facility] [id number] 18:27:00 18:54:00 Nathaniel Bryant 2021-10-11 2021-10-11 Outpatient MIMI [facility] [id number] [place] 13:30:00 13:30:00 [facility] 2021-10-10 2021-10-10 Outpatient GÉNESIS, [facility] VERÓNICA [id number] [facility] 17:11:00 23:59:00 GERMAINE 2021-10-10 2021-10-10 Outpatient Rebeca, Solange [facility] [id number] 18:27:00 18:27:00 Nathaniel Bryant Results Test Description Test Time Test Comments Results Result Comments Source CHEM PANEL 2021-10-13 05:49:00 Test Item Value Reference Range Interpretation Comme nts Calcium Lvl (test code = Calcium Lvl) 8.5 8.5-10.5 [id number] 05:49:00 Test Item Value Reference Range Interpretation Comments AGAP (test code = AGAP) 10.9 10.0-20.0 [id number] 05:49:00 Test Item Value Reference Range Interpretation Comments eGFR (test code = eGFR) 109 [id number] 05:49:00 Test Item Value Reference Range Interpretation Comments RBC X 10x6 (test code = RBC X 10x6) 3.21 4.20-5.40 [id number] 05:49:00 Test Item Value Reference Range Interpretation Comments Hgb (test code = Hgb) 10.0 12.0-16.0 [facility]vkzf[facility]GINXHQJ5947-91-43 05:49:00 Test Item Value Reference Range Interpretation Comments Hct (test code = Hct) 29.9 36.0-48.0 [facility]VMBUZSFF2222-74-49 05:49:00 Test Item Value Reference Range Interpretation Comments MCV (test code = MCV) 92.9 80.0-98.0 [facility]FIEBCRZVD2046-79-53 05:49:00 Test Item Value Reference Range Interpretation Comments MCH (test code = MCH) 31.0 pg 27.0-31.0 [place] [id number] 05:49:00 Test Item Value Reference Range Interpretation Comments MCHC (test code = MCHC) 33.4 32.0-36.0 [place] 612352-07-18 05:49:00 Test Item Value Reference Range Interpretation Comments RDW (test code = RDW) 13.0 11.5-14.5 [place] [id number] 05:49:00 Test Item Value Reference Range Interpretation Comments RBC Morph (test code = Normal (10/13/21 12:49 RBC Morph) AM) [facility]86 05:49:00 Test Item Value Reference Range Interpretation Comments Plt Morph (test code = Normal (10/13/21 12:49 Plt Morph) AM) [place] [id number] 05:49:00 Test Item Value Reference Range Interpretation Comments Segs (test code = Segs) 62.9 45.0-75.0 [facility]ujbsjzXULDMUZFGH8796-68-60 05:49:00 Test Item Value Reference Range Interpretation Comments Lymphocytes (test code = Lymphocytes) 28.2 20.0-40.0 [facility]vvmkfKTVVDROCLQ6390-35-13 05:49:00 Test Item Value Reference Range Interpretation Comments Monocytes (test code = Monocytes) 7.4 2.0-12.0 [facility]SpgtmcoLXLBRZZJLO5409-90-48 05:49:00 Test Item Value Reference Range Interpretation Comments Eosinophils (test code = 1.0 See_Comment [A utomated message] The Eosinophils) system which ge nerated this result tra nsmitted reference range : <=4.0. The reference r steven was not used to int erpret this result as normal/abnormal . [place] [id number] 05:49:00 Test Item Value Reference Range Interpretation Comments Basophils (test code = 0.5 See_Comment [Aut omated message] The Basophils) system which ge nerated this result tra nsmitted reference range : <=1.0. The reference r steven was not used to int erpret this result as normal/abnormal . [facility]TundxayNBVCQCGSNY3838-57-19 05:49:00 Test Item Value Reference Range Interpretation Comments Neutrophils # (test code = Neutrophils 7.0 1.5-8.1 #) [place] 612352-07-18 05:49:00 Test Item Value Reference Range Interpretation Comments Lymphocytes # (test code = Lymphocytes 3.1 1.0-5.5 #) [place] 612352-07-18 05:49:00 Test Item Value Reference Range Interpretation Comments Monocytes # (test code 0.8 See_Comment [Aut omated message] The = Monocytes #) system which generated this result tra nsmitted reference range : <=0.8. The reference r steven was not used to int erpret this result as normal/abnormal . [facility]2022-07-18 05:49:00 Test Item Value Reference Range Interpretation Comments Glucose Lvl (test code = Glucose Lvl) 109 70-99 [place] 612352-07-18 05:49:00 Test Item Value Reference Range Interpretation Comments Eosinophils # (test code 0.1 See_Comment [A utomated message] The = Eosinophils #) system whic h generated this result tra nsmitted reference range : <=0.5. The reference r steven was not used to int erpret this result as normal/abnormal . [facility]2022-07-18 05:49:00 Test Item Value Reference Range Interpretation Comments Glucose Lvl (test code = Glucose Lvl) 109 70-99 [place] 284212-07-18 05:49:00 Test Item Value Reference Range Interpretation Comments BUN (test code = BUN) 8 7-22 [place] 284212-07-18 05:49:00 Test Item Value Reference Range Interpretation Comments Creatinine Lvl (test code = Creatinine 0.76 0.50-1.40 Lvl) [place] 284212-07-18 05:49:00 Test Item Value Reference Range Interpretation Comments Sodium Lvl (test code = Sodium Lvl) 142 135-145 [place] 284212-07-18 05:49:00 Test Item Value Reference Range Interpretation Comments Potassium Lvl (test code = Potassium 3.9 3.5-5.1 Lvl) [place] 284212-07-18 05:49:00 Test Item Value Reference Range Interpretation Comments Chloride Lvl (test code = Chloride Lvl) 111 95-109 [place] 284212-07-18 05:49:00 Test Item Value Reference Range Interpretation Comments CO2 (test code = CO2) 24 24-32 [facility]2022-07-18 05:49:00 Test Item Value Reference Range Interpretation Comments Calcium Lvl (test code = Calcium Lvl) 8.5 8.5-10.5 [facility]NEY[facility]WWW1834[facility] 05:49:00 Test Item Value Reference Range Interpretation Comments Basophils # (test code 0.1 See_Comment [Aut omated message] The = Basophils #) system which generated this result tra nsmitted reference range : <=0.2. The reference r steven was not used to int erpret this result as normal/abnormal . [facility]2022-07-18 05:49:00 Test Item Value Reference Range Interpretation Comments AGAP (test code = AGAP) 10.9 10.0-20.0 [facility]2022-07-18 05:49:00 Test Item Value Reference Range Interpretation Comments eGFR (test code = eGFR) 109 [facility]ZfmwiskMBONSBCINM3414-27-39 05:49:00 Test Item Value Reference Range Interpretation Comments RBC X 10x6 (test code = RBC X 10x6) 3.21 4.20-5.40 [facility] AustinQiumjecBIPZCTDGJG0062-70-40 05:49:00 Test Item Value Reference Range Interpretation Comments Hgb (test code = Hgb) 10.0 12.0-16.0 [place] 612352-07-18 05:49:00 Test Item Value Reference Range Interpretation Comments Hct (test code = Hct) 29.9 36.0-48.0 [place] 612352-07-18 05:49:00 Test Item Value Reference Range Interpretation Comments MCV (test code = MCV) 92.9 80.0-98.0 [place] 612352-07-18 05:49:00 Test Item Value Reference Range Interpretation Comments MCH (test code = MCH) 31.0 pg 27.0-31.0 [place] 612352-07-18 05:49:00 Test Item Value Reference Range Interpretation Comments MCHC (test code = MCHC) 33.4 32.0-36.0 [place] 612352-07-18 05:49:00 Test Item Value Reference Range Interpretation Comments RDW (test code = RDW) 13.0 11.5-14.5 [place] 612352-07-18 05:49:00 Test Item Value Reference Range Interpretation Comments RBC Morph (test code = Normal (10/13/21 12:49 RBC Morph) AM) [place] 612352-07-18 05:49:00 Test Item Value Reference Range Interpretation Comments WBC X 10x3 (test code = WBC X 10x3) 11.2 3.7-10.4 [place] 612352-07-18 05:49:00 Test Item Value Reference Range Interpretation Comments Plt Morph (test code = Normal (10/13/21 12:49 Plt Morph) AM) [place] 612352-07-18 05:49:00 Test Item Value Reference Range Interpretation Comments Segs (test code = Segs) 62.9 45.0-75.0 [place] 612352-07-18 05:49:00 Test Item Value Reference Range Interpretation Comments Lymphocytes (test code = Lymphocytes) 28.2 20.0-40.0 [place] 612352-07-18 05:49:00 Test Item Value Reference Range Interpretation Comments Monocytes (test code = Monocytes) 7.4 2.0-12.0 [place] 612352-07-18 05:49:00 Test Item Value Reference Range Interpretation Comments Eosinophils (test code = 1.0 See_Comment [A utomated message] The Eosinophils) system which ge nerated this result tra nsmitted reference range : <=4.0. The reference r steven was not used to int erpret this result as normal/abnormal . [place] 612352-07-18 05:49:00 Test Item Value Reference Range Interpretation Comments Basophils (test code = 0.5 See_Comment [Aut omated message] The Basophils) system which ge nerated this result tra nsmitted reference range : <=1.0. The reference r steven was not used to int erpret this result as normal/abnormal . [place] [address]-07-18 05:49:00 Test Item Value Reference Range Interpretation Comments Neutrophils # (test code = Neutrophils 7.0 1.5-8.1 #) [place] 612352-07-18 05:49:00 Test Item Value Reference Range Interpretation Comments Lymphocytes # (test code = Lymphocytes 3.1 1.0-5.5 #) [facility]RkabkgtGJPYVOOWNC7934[facility] 05:49:00 Test Item Value Reference Range Interpretation Comments Monocytes # (test code 0.8 See_Comment [Aut omated message] The = Monocytes #) system which generated this result tra nsmitted reference range : <=0.8. The reference r steven was not used to int erpret this result as normal/abnormal . [facility] AustinSxuywrlJGQFANOQEA9619-85-45 05:49:00 Test Item Value Reference Range Interpretation Comments Eosinophils # (test code 0.1 See_Comment [A utomated message] The = Eosinophils #) system whic h generated this result tra nsmitted reference range : <=0.5. The reference r steven was not used to int erpret this result as normal/abnormal . [facility] AustinVeeshcsJGIHKEJUFI2984-97-93 05:49:00 Test Item Value Reference Range Interpretation Comments Platelet (test code = Platelet) 192 133-450 [facility] AustinWjdbjklYEBTSQJSIG5614-75-24 05:49:00 Test Item Value Reference Range Interpretation Comments Basophils # (test code 0.1 See_Comment [Aut omated message] The = Basophils #) system which generated this result tra nsmitted reference range : <=0.2. The reference r steven was not used to int erpret this result as normal/abnormal . [facility] AustinDgnsuucOWSYOGLZQK0083-52-54 05:49:00 Test Item Value Reference Range Interpretation Comments WBC X 10x3 (test code = WBC X 10x3) 11.2 3.7-10.4 [facility] AustinMfveyfqAHORTXLCYC4501-96-26 05:49:00 Test Item Value Reference Range Interpretation Comments Platelet (test code = Platelet) 192 133-450 [facility] AustinJghtegjCYZIAJKQEJ7849-81-03 05:49:00 Test Item Value Reference Range Interpretation Comments MPV (test code = MPV) 8.2 7.4-10.4 [facility] AustinEggpeepGZXTZHYEYF5231-50-81 05:49:00 Test Item Value Reference Range Interpretation Comments MPV (test code = MPV) 8.2 7.4-10.4 [facility]2022-07-18 05:49:00 Test Item Value Reference Range Interpretation Comments BUN (test code = BUN) 8 7-22 [facility] QTMTA9859[facility]20[facility]78 05:49:00 Test Item Value Reference Range Interpretation Comments Creatinine Lvl (test code = Creatinine 0.76 0.50-1.40 Lvl) [place] 284212-07-18 05:49:00 Test Item Value Reference Range Interpretation Comments Sodium Lvl (test code = Sodium Lvl) 142 135-145 [place] 284212-07-18 05:49:00 Test Item Value Reference Range Interpretation Comments Potassium Lvl (test code = Potassium 3.9 3.5-5.1 Lvl) [facility]2022-07-18 05:49:00 Test Item Value Reference Range Interpretation Comments Chloride Lvl (test code = Chloride Lvl) 111 95-109 [place] 284212-07-18 05:49:00 Test Item Value Reference Range Interpretation Comments CO2 (test code = CO2) [facility]2022-07-16 21:09:00 Test Item Value Reference Range Interpretation Comments Glucose Lvl (test code = Glucose Lvl) 143 70-99 [facility]2022-07-16 21:09:00 Test Item Value Reference Range Interpretation Comments BUN (test code = BUN) 13 10-17 [facility]2022-07-16 21:09:00 Test Item Value Reference Range Interpretation Comments Creatinine Lvl (test code = Creatinine 0.89 0.50-1.40 Lvl) [facility]2022-07-16 21:09:00 Test Item Value Reference Range Interpretation Comments Sodium Lvl (test code = Sodium Lvl) 139 135-145 [facility]2022-07-16 21:09:00 Test Item Value Reference Range Interpretation Comments Sodium Lvl (test code = Sodium Lvl) 139 135-145 [place] 284212-07-16 21:09:00 Test Item Value Reference Range Interpretation Comments Potassium Lvl (test code = Potassium 4.6 3.5-5.1 Lvl) [facility]2022-07-16 21:09:00 Test Item Value Reference Range Interpretation Comments Chloride Lvl (test code = Chloride Lvl) 109 95-109 [facility]2022-07-16 21:09:00 Test Item Value Reference Range Interpretation Comments CO2 (test code = CO2) [facility]2022-07-16 21:09:00 Test Item Value Reference Range Interpretation Comments Calcium Lvl (test code = Calcium Lvl) 9.0 8.5-10.5 [facility]2022-07-16 21:09:00 Test Item Value Reference Range Interpretation Comments AGAP (test code = AGAP) 9.6 10.0-20.0 [facility]2022-07-16 21:09:00 Test Item Value Reference Range Interpretation Comments eGFR (test code = eGFR) 90 [facility] AustinZghjqfwJWYTUJFVME4194-11-57 21:09:00 Test Item Value Reference Range Interpretation Comments WBC (test code = WBC) 11.1 3.7-10.4 [facility] AustinPqswbefJXRPCMROAG8215-19-16 21:09:00 Test Item Value Reference Range Interpretation Comments RBC (test code = RBC) 3.87 4.20-5.40 [facility] AustinBacekaxBJJAGDWNKZ2941-94-98 21:09:00 Test Item Value Reference Range Interpretation Comments Hgb (test code = Hgb) 12.0 12.0-16.0 [facility] AustinKepmfeaBFSMLKBDYS3138-50-05 21:09:00 Test Item Value Reference Range Interpretation Comments Hct (test code = Hct) 35.4 36.0-48.0 [facility] AustinPtriujlKAWUUVUVEB9002-31-59 21:09:00 Test Item Value Reference Range Interpretation Comments MCV (test code = MCV) 91.6 80.0-98.0 [facility] AustinYduoqovAUDPENEQEK8567-22-94 21:09:00 Test Item Value Reference Range Interpretation Comments MCH (test code = MCH) 31.0 pg 27.0-31.0 [facility] AustinIwmvqbuIKQCSCQCCP2801-39-07 21:09:00 Test Item Value Reference Range Interpretation Comments MCHC (test code = MCHC) 33.9 32.0-36.0 [facility] AustinGhcxtgqQWBVRCPRXV6559-87-85 21:09:00 Test Item Value Reference Range Interpretation Comments RDW (test code = RDW) 13.2 11.5-14.5 [facility] AustinWhhzgqxUMIAUNQYWN9252-11-10 21:09:00 Test Item Value Reference Range Interpretation Comments Platelet (test code = Platelet) 256 133-450 [facility]2022-07-16 21:09:00 Test Item Value Reference Range Interpretation Comments Potassium Lvl (test code = Potassium 4.6 3.5-5.1 Lvl) [facility] AustinEcnrfmyZMYFYZSQBN8021-58-28 21:09:00 Test Item Value Reference Range Interpretation Comments MPV (test code = MPV) 7.7 7.4-10.4 [facility] AustinHccdlixXNGKNSCCVT1251-72-90 21:09:00 Test Item Value Reference Range Interpretation Comments Segs (test code = Segs) 86.1 45.0-75.0 [facility] AustinDutstfcXZXTAOYLIN1905-25-83 21:09:00 Test Item Value Reference Range Interpretation Comments Lymphocytes (test code = Lymphocytes) 8.2 20.0-40.0 [facility] AustinKuahcqcCEFCCEWFGM1829-96-67 21:09:00 Test Item Value Reference Range Interpretation Comments Monocytes (test code = Monocytes) 5.1 2.0-12.0 [facility] AustinKtotdfoBVRGNCHBEK2197-79-39 21:09:00 Test Item Value Reference Range Interpretation Comments Eosinophils (test code = 0.5 See_Comment [A utomated message] The Eosinophils) system which ge nerated this result tra nsmitted reference range : <=4.0. The reference r steven was not used to int erpret this result as normal/abnormal . [facility] AustinEkxabpaQRULPSYQKL9919-64-16 21:09:00 Test Item Value Reference Range Interpretation Comments Basophils (test code = 0.1 See_Comment [Aut omated message] The Basophils) system which ge nerated this result tra nsmitted reference range : <=1.0. The reference r steven was not used to int erpret this result as normal/abnormal . [facility] AustinHfuistvUTBMWXKKJH9413-20-15 21:09:00 Test Item Value Reference Range Interpretation Comments Neutrophils # (test code = Neutrophils 9.5 1.5-8.1 #) [facility] AustinStbkbmaDOSSSOYVQP7218-88-19 21:09:00 Test Item Value Reference Range Interpretation Comments Lymphocytes # (test code = Lymphocytes 0.9 1.0-5.5 #) [facility] AustinUblxhebABRRUHVYHQ5574-05-22 21:09:00 Test Item Value Reference Range Interpretation Comments Monocytes # (test code 0.6 See_Comment [Aut omated message] The = Monocytes #) system which generated this result tra nsmitted reference range : <=0.8. The reference r steven was not used to int erpret this result as normal/abnormal . [place] 612352-07-16 21:09:00 Test Item Value Reference Range Interpretation Comments Eosinophils # (test code 0.1 See_Comment [A utomated message] The = Eosinophils #) system Sit[employer]ar[employer] h generated this result tra nsmitted reference range : <=0.5. The reference r steven was not used to int erpret this result as normal/abnormal . [place] 284212-07-16 21:09:00 Test Item Value Reference Range Interpretation Comments Chloride Lvl (test code = Chloride Lvl) 109 95-109 [place] 284212-07-16 21:09:00 Test Item Value Reference Range Interpretation Comments CO2 (test code = CO2) 25 24-32 [place] 284212-07-16 21:09:00 Test Item Value Reference Range Interpretation Comments Calcium Lvl (test code = Calcium Lvl) 9.0 8.5-10.5 [place] 284212-07-16 21:09:00 Test Item Value Reference Range Interpretation Comments AGAP (test code = AGAP) 9.6 10.0-20.0 [place] [address]-07-16 21:09:00 Test Item Value Reference Range Interpretation Comments Glucose Lvl (test code = Glucose Lvl) 143 70-99 [place] 284212-07-16 21:09:00 Test Item Value Reference Range Interpretation Comments BUN (test code = BUN) 13 7-22 [place] 284212-07-16 21:09:00 Test Item Value Reference Range Interpretation Comments eGFR (test code = eGFR) 90 [place] 284212-07-16 21:09:00 Test Item Value Reference Range Interpretation Comments Creatinine Lvl (test code = Creatinine 0.89 0.50-1.40 Lvl) [place] 612352-07-16 21:09:00 Test Item Value Reference Range Interpretation Comments WBC (test code = WBC) 11.1 3.7-10.4 [place]352-07-16 21:09:00 Test Item Value Reference Range Interpretation Comments RBC (test code = RBC) 3.87 4.20-5.40 [place]352-07-16 21:09:00 Test Item Value Reference Range Interpretation Comments Hgb (test code = Hgb) 12.0 12.0-16.0 [facility] AustinWvyorelCOMABIFVHD8463-53-98 21:09:00 Test Item Value Reference Range Interpretation Comments Hct (test code = Hct) 35.4 36.0-48.0 [facility] AustinWnrlvcxYTURNKYBRY9865-47-68 21:09:00 Test Item Value Reference Range Interpretation Comments MCV (test code = MCV) 91.6 80.0-98.0 [facility] AustinGstbyffDFENABRGWW3144-61-79 21:09:00 Test Item Value Reference Range Interpretation Comments MCH (test code = MCH) 31.0 pg 27.0-31.0 [facility] AustinNwzinvkOBAZWORGTK6374-36-25 21:09:00 Test Item Value Reference Range Interpretation Comments MCHC (test code = MCHC) 33.9 32.0-36.0 [facility] AustinGnpihjaSSVPLBIGFJ3433-44-23 21:09:00 Test Item Value Reference Range Interpretation Comments RDW (test code = RDW) 13.2 11.5-14.5 [facility] AustinYfplqnfHPAWAGSGBG9778-94-97 21:09:00 Test Item Value Reference Range Interpretation Comments Platelet (test code = Platelet) 256 133-450 [facility] AustinRtrovwjZRNMLVVFEZ8531-66-93 21:09:00 Test Item Value Reference Range Interpretation Comments MPV (test code = MPV) 7.7 7.4-10.4 [facility] AustinHlzqlhnFCEEAZECUS2483-26-61 21:09:00 Test Item Value Reference Range Interpretation Comments Segs (test code = Segs) 86.1 45.0-75.0 [facility] AustinEbzlwiqLTDAXOBQHG5500-90-09 21:09:00 Test Item Value Reference Range Interpretation Comments Lymphocytes (test code = Lymphocytes) 8.2 20.0-40.0 [facility] AustinUyooyjlGMGXJFJGUL7441-56-24 21:09:00 Test Item Value Reference Range Interpretation Comments Monocytes (test code = Monocytes) 5.1 2.0-12.0 [facility] AustinSbmkzwyTPKJBFHKZK0700-55-35 21:09:00 Test Item Value Reference Range Interpretation Comments Eosinophils (test code = 0.5 See_Comment [A utomated message] The Eosinophils) system which ge nerated this result tra nsmitted reference range : <=4.0. The reference r steven was not used to int erpret this result as normal/abnormal . [place] 612352-07-16 21:09:00 Test Item Value Reference Range Interpretation Comments Basophils (test code = 0.1 See_Comment [Aut omated message] The Basophils) system which ge nerated this result tra nsmitted reference range : <=1.0. The reference r steven was not used to int erpret this result as normal/abnormal . [place] 612352-07-16 21:09:00 Test Item Value Reference Range Interpretation Comments Neutrophils # (test code = Neutrophils 9.5 1.5-8.1 #) [place]352-07-16 21:09:00 Test Item Value Reference Range Interpretation Comments Lymphocytes # (test code = Lymphocytes 0.9 1.0-5.5 #) [place] 612352-07-16 21:09:00 Test Item Value Reference Range Interpretation Comments Monocytes # (test code 0.6 See_Comment [Aut omated message] The = Monocytes #) system which generated this result tra nsmitted reference range : <=0.8. The reference r steven was not used to int erpret this result as normal/abnormal . [place] [address]-07-16 21:09:00 Test Item Value Reference Range Interpretation Comments Eosinophils # (test code 0.1 See_Comment [A utomated message] The = Eosinophils #) system whic h generated this result tra nsmitted reference range : <=0.5. The reference r steven was not used to int erpret this result as normal/abnormal . [place] 284212-07-16 14:53:00 Test Item Value Reference Range Interpretation Comments Lactic Acid Lvl (test code = Lactic 1.6 0.5-2.2 Acid Lvl) [place] 284212-07-16 14:53:00 Test Item Value Reference Range Interpretation Comments Lactic Acid Lvl (test code = Lactic 1.6 0.5-2.2 Acid Lvl) [place] 284212-07-16 10:58:00 Test Item Value Reference Range Interpretation Comments Lactic Acid Lvl (test code = Lactic 2.2 0.5-2.2 Acid Lvl) [place] 284212-07-16 10:58:00 Test Item Value Reference Range Interpretation Comments Lactic Acid Lvl (test code = Lactic 2.2 0.5-2.2 Acid Lvl) [place] 284212-07-16 07:51:00 Test Item Value Reference Range Interpretation Comments Lactic Acid Lvl (test code = Lactic 2.4 0.5-2.2 Acid Lvl) [place] 284212-07-16 07:51:00 Test Item Value Reference Range Interpretation Comments Lactic Acid Lvl (test code = Lactic 2.4 0.5-2.2 Acid Lvl) [place] 284212-07-16 06:05:00 Test Item Value Reference Range Interpretation Comments Glucose Lvl (test code = Glucose Lvl) 141 70-99 [facility]2022-07-16 06:05:00 Test Item Value Reference Range Interpretation Comments BUN (test code = BUN) 12 7-22 [place] 284212-07-16 06:05:00 Test Item Value Reference Range Interpretation Comments Creatinine Lvl (test code = Creatinine 0.90 0.50-1.40 Lvl) [place] 284212-07-16 06:05:00 Test Item Value Reference Range Interpretation Comments Sodium Lvl (test code = Sodium Lvl) 143 135-145 [facility]2022-07-16 06:05:00 Test Item Value Reference Range Interpretation Comments Potassium Lvl (test code = Potassium 4.5 3.5-5.1 Lvl) [facility]2022-07-16 06:05:00 Test Item Value Reference Range Interpretation Comments Chloride Lvl (test code = Chloride Lvl) 111 95-109 [facility]2022-07-16 06:05:00 Test Item Value Reference Range Interpretation Comments CO2 (test code = CO2) 26 24-32 [place] 284212-07-16 06:05:00 Test Item Value Reference Range Interpretation Comments Calcium Lvl (test code = Calcium Lvl) 8.2 8.5-10.5 [place] 284212-07-16 06:05:00 Test Item Value Reference Range Interpretation Comments AGAP (test code = AGAP) 10.5 10.0-20.0 [place] 284212-07-16 06:05:00 Test Item Value Reference Range Interpretation Comments eGFR (test code = eGFR) 89 [facility] AustinVdqzzrpUXCLJXLLNQ2559-21-07 06:05:00 Test Item Value Reference Range Interpretation Comments WBC X 10x3 (test code = WBC X 10x3) 11.4 3.7-10.4 [facility] AustinYwmvrynMUDQKQFVXV1804-74-02 06:05:00 Test Item Value Reference Range Interpretation Comments RBC X 10x6 (test code = RBC X 10x6) 4.16 4.20-5.40 [facility] AustinMzjmucmAKBIZSAEDV5261-14-46 06:05:00 Test Item Value Reference Range Interpretation Comments Hgb (test code = Hgb) 12.6 12.0-16.0 [facility] AustinWsfixlcITYQGRUIVC0512-15-45 06:05:00 Test Item Value Reference Range Interpretation Comments Hct (test code = Hct) 38.3 36.0-48.0 [facility] AustinYcwvdbxAOFJNYTZAC1520-78-55 06:05:00 Test Item Value Reference Range Interpretation Comments MCV (test code = MCV) 92.0 80.0-98.0 [facility] AustinYmkdcswWHHFGFONRY0565-70-79 06:05:00 Test Item Value Reference Range Interpretation Comments MCH (test code = MCH) 30.4 pg 27.0-31.0 [facility] AustinUmgibagFZLCCTWDSK7434-34-45 06:05:00 Test Item Value Reference Range Interpretation Comments MCHC (test code = MCHC) 33.0 32.0-36.0 [facility] AustinYlqkrgrBGARZBNRYT9217-47-09 06:05:00 Test Item Value Reference Range Interpretation Comments RDW (test code = RDW) 12.9 11.5-14.5 [facility] AustinMyyvrzdZOJQVMPOVK8034-24-76 06:05:00 Test Item Value Reference Range Interpretation Comments Platelet (test code = Platelet) 259 133-450 [facility] AustinEwlxfxvDFVGEYNSRL9243-17-34 06:05:00 Test Item Value Reference Range Interpretation Comments MPV (test code = MPV) 7.5 7.4-10.4 [facility] AustinBzlqgfnXCMMYRNKJY0822-26-54 06:05:00 Test Item Value Reference Range Interpretation Comments Segs (test code = Segs) 80.9 45.0-75.0 [facility] AustinCixwbubSVMZCXKTEQ7643-08-61 06:05:00 Test Item Value Reference Range Interpretation Comments Lymphocytes (test code = Lymphocytes) 11.8 20.0-40.0 [facility] AustinNzuqdfaASYDTTVHCP7685-33-27 06:05:00 Test Item Value Reference Range Interpretation Comments Monocytes (test code = Monocytes) 7.1 2.0-12.0 [facility] AustinRxxuibhKDDEOUWZMA1786-05-48 06:05:00 Test Item Value Reference Range Interpretation Comments Eosinophils (test code = 0.1 See_Comment [A utomated message] The Eosinophils) system which ge nerated this result tra nsmitted reference range : <=4.0. The reference r steven was not used to int erpret this result as normal/abnormal . [facility] AustinAikkkxxMWDVNOULHV5316-03-99 06:05:00 Test Item Value Reference Range Interpretation Comments Basophils (test code = 0.1 See_Comment [Aut omated message] The Basophils) system which ge nerated this result tra nsmitted reference range : <=1.0. The reference r steven was not used to int erpret this result as normal/abnormal . [facility] AustinYumvaiwLFOMPJDTLI8943-44-85 06:05:00 Test Item Value Reference Range Interpretation Comments Neutrophils # (test code = Neutrophils 9.2 1.5-8.1 #) [facility] AustinRvnrfbcCIJTHNKBCQ9275-31-73 06:05:00 Test Item Value Reference Range Interpretation Comments Lymphocytes # (test code = Lymphocytes 1.3 1.0-5.5 #) [facility]ds[facility]wlDFIPFGADGA0098-46-93 06:05:00 Test Item Value Reference Range Interpretation Comments Monocytes # (test code 0.8 See_Comment [Aut omated message] The = Monocytes #) system which generated this result tra nsmitted reference range : <=0.8. The reference r steven was not used to int erpret this result as normal/abnormal . [facility]2022-07-16 06:05:00 Test Item Value Reference Range Interpretation Comments Glucose Lvl (test code = Glucose Lvl) 141 70-99 [facility]2022-07-16 06:05:00 Test Item Value Reference Range Interpretation Comments BUN (test code = BUN) 12 7-22 [place] 284212-07-16 06:05:00 Test Item Value Reference Range Interpretation Comments Creatinine Lvl (test code = Creatinine 0.90 0.50-1.40 Lvl) [place] 284212-07-16 06:05:00 Test Item Value Reference Range Interpretation Comments Sodium Lvl (test code = Sodium Lvl) 143 135-145 [place] 284212-07-16 06:05:00 Test Item Value Reference Range Interpretation Comments Potassium Lvl (test code = Potassium 4.5 3.5-5.1 Lvl) [facility]2022-07-16 06:05:00 Test Item Value Reference Range Interpretation Comments Chloride Lvl (test code = Chloride Lvl) 111 95-109 [place] 284212-07-16 06:05:00 Test Item Value Reference Range Interpretation Comments CO2 (test code = CO2) 26 24-32 [place] 284212-07-16 06:05:00 Test Item Value Reference Range Interpretation Comments Calcium Lvl (test code = Calcium Lvl) 8.2 8.5-10.5 [place] 284212-07-16 06:05:00 Test Item Value Reference Range Interpretation Comments AGAP (test code = AGAP) 10.5 10.0-20.0 [facility]2022-07-16 06:05:00 Test Item Value Reference Range Interpretation Comments eGFR (test code = eGFR) 89 [facility]DdnlqwbAIOQAUKPZG6851-11-36 06:05:00 Test Item Value Reference Range Interpretation Comments WBC X 10x3 (test code = WBC X 10x3) 11.4 3.7-10.4 [place] 612352-07-16 06:05:00 Test Item Value Reference Range Interpretation Comments RBC X 10x6 (test code = RBC X 10x6) 4.16 4.20-5.40 [place] 612352-07-16 06:05:00 Test Item Value Reference Range Interpretation Comments Hgb (test code = Hgb) 12.6 12.0-16.0 [place] 612352-07-16 06:05:00 Test Item Value Reference Range Interpretation Comments Hct (test code = Hct) 38.3 36.0-48.0 [place] 612352-07-16 06:05:00 Test Item Value Reference Range Interpretation Comments MCV (test code = MCV) 92.0 80.0-98.0 [place] 612352-07-16 06:05:00 Test Item Value Reference Range Interpretation Comments MCH (test code = MCH) 30.4 pg 27.0-31.0 [place] 612352-07-16 06:05:00 Test Item Value Reference Range Interpretation Comments MCHC (test code = MCHC) 33.0 32.0-36.0 [facility] AustinIgmdmmeIWRWCAXLEW7171-58-83 06:05:00 Test Item Value Reference Range Interpretation Comments RDW (test code = RDW) 12.9 11.5-14.5 [place] 612352-07-16 06:05:00 Test Item Value Reference Range Interpretation Comments Platelet (test code = Platelet) 259 133-450 [facility] AustinAibigwoZEPEOPZWYW4939-67-84 06:05:00 Test Item Value Reference Range Interpretation Comments MPV (test code = MPV) 7.5 7.4-10.4 [facility] AustinRywjwmnTHUNCEHZXN6674-22-87 06:05:00 Test Item Value Reference Range Interpretation Comments Segs (test code = Segs) 80.9 45.0-75.0 [facility] AustinElamimgRLKHVEAALA9293-42-32 06:05:00 Test Item Value Reference Range Interpretation Comments Lymphocytes (test code = Lymphocytes) 11.8 20.0-40.0 [facility] AustinRokpywdKYZOQKXQOD2003-71-60 06:05:00 Test Item Value Reference Range Interpretation Comments Monocytes (test code = Monocytes) 7.1 2.0-12.0 [facility] AustinIfchrjyFLIHOHNINK7762-46-20 06:05:00 Test Item Value Reference Range Interpretation Comments Eosinophils (test code = 0.1 See_Comment [A utomated message] The Eosinophils) system which ge nerated this result tra nsmitted reference range : <=4.0. The reference r steven was not used to int erpret this result as normal/abnormal . [facility] AustinSktwovfJOHCREZQUG1971-23-75 06:05:00 Test Item Value Reference Range Interpretation Comments Basophils (test code = 0.1 See_Comment [Aut omated message] The Basophils) system which ge nerated this result tra nsmitted reference range : <=1.0. The reference r steven was not used to int erpret this result as normal/abnormal . [place] 612352-07-16 06:05:00 Test Item Value Reference Range Interpretation Comments Neutrophils # (test code = Neutrophils 9.2 1.5-8.1 #) [facility] AustinUeapjasPDFXHOAVGI6787-11-34 06:05:00 Test Item Value Reference Range Interpretation Comments Lymphocytes # (test code = Lymphocytes 1.3 1.0-5.5 #) [facility] 06:05:00 Test Item Value Reference Range Interpretation Comments Monocytes # (test code 0.8 See_Comment [Aut omated message] The = Monocytes #) system which generated this result tra nsmitted reference range : <=0.8. The reference r steven was not used to int erpret this result as normal/abnormal . [facility] AND [id number] 04:36:00 Test Item Value Reference Range Interpretation Comments UA Color (test code = Yellow (10/10/21 11:36 UA Color) PM) [facility] AND [id number] 04:36:00 Test Item Value Reference Range Interpretation Comments UA Turbidity (test code Slight Cloudy = UA Turbidity) (10/10/21 11:36 PM) [facility] AND [id number] 04:36:00 Test Item Value Reference Range Interpretation Comments UA Spec Grav (test code = UA Spec 1.025 1 Grav) [facility] AND [id number] 04:36:00 Test Item Value Reference Range Interpretation Comments UA pH (test code = UA pH) 6.0 1 5.0-8.0 [facility] AND [id number] 04:36:00 Test Item Value Reference Range Interpretation Comments UA Protein (test code = UA Protein) 30 mg/dL [facility] AND [id number] 04:36:00 Test Item Value Reference Range Interpretation Comments UA Glucose (test code Negative (10/10/21 11:36 = UA Glucose) PM) [facility] AND [id number] 04:36:00 Test Item Value Reference Range Interpretation Comments UA Ketones (test code Negative *NA*(10/10/21 = UA Ketones) 11:36 PM) [facility] AND [id number] 04:36:00 Test Item Value Reference Range Interpretation Comments UA Bili (test code = Negative *NA*(10/10/21 UA Bili) 11:36 PM) [facility] AND [id number] 04:36:00 Test Item Value Reference Range Interpretation Comments UA Blood (test code = Large *ABN*(10/10/21 UA Blood) 11:36 PM) [facility] [id number] 04:36:00 Test Item Value Reference Range Interpretation Comments UA Urobilinogen (test code = UA 0.2 0.1-1.0 Urobilinogen) [facility] [id number] 04:36:00 Test Item Value Reference Range Interpretation Comments UA Nitrite (test code Positive *ABN*(10/10/21 = UA Nitrite) 11:36 PM) [facility] [id number] 04:36:00 Test Item Value Reference Range Interpretation Comments UA Leuk Est (test Negative (10/10/21 11:36 code = UA Leuk Est) PM) [facility] [id number] 04:36:00 Test Item Value Reference Range Interpretation Comments UA Sq Epi (test code = UA Sq Epi) Rare /LPF [facility] [id number] 04:36:00 Test Item Value Reference Range Interpretation Comments UA WBC (test code = UA WBC) 0-2 /HPF [facility] [id number] 04:36:00 Test Item Value Reference Range Interpretation Comments UA RBC (test code = UA RBC) 0-2 /HPF [facility] [id number] 04:36:00 Test Item Value Reference Range Interpretation Comments UA Bacteria (test code = UA Few /HPF Bacteria) [facility] [id number] 04:36:00 Test Item Value Reference Range Interpretation Comments UA Comment 1 (test LESS than 2.0 ml of code = UA Comment 1) urine submitted for testing. Microscopic performed on unspun specimen. [facility] [id number] 04:36:00 Test Item Value Reference Range Interpretation Comments UA Color (test code = Yellow (10/10/21 11:36 UA Color) PM) [facility] [id number] 04:36:00 Test Item Value Reference Range Interpretation Comments UA Turbidity (test code Slight Cloudy = UA Turbidity) (10/10/21 11:36 PM) [facility] [id number] 04:36:00 Test Item Value Reference Range Interpretation Comments UA Spec Grav (test code = UA Spec 1.025 1 Grav) [facility] [id number] 04:36:00 Test Item Value Reference Range Interpretation Comments UA pH (test code = UA pH) 6.0 1 5.0-8.0 [facility] [id number] 04:36:00 Test Item Value Reference Range Interpretation Comments UA Protein (test code = UA Protein) 30 mg/dL [facility] [id number] 04:36:00 Test Item Value Reference Range Interpretation Comments UA Glucose (test code Negative (10/10/21 11:36 = UA Glucose) PM) [facility] [id number] 04:36:00 Test Item Value Reference Range Interpretation Comments UA Ketones (test code Negative *NA*(10/10/21 = UA Ketones) 11:36 PM) [facility] [id number] 04:36:00 Test Item Value Reference Range Interpretation Comments UA Bili (test code = Negative *NA*(10/10/21 UA Bili) 11:36 PM) [facility] [id number] 04:36:00 Test Item Value Reference Range Interpretation Comments UA Blood (test code = Large *ABN*(10/10/21 UA Blood) 11:36 PM) [facility] [id number] 04:36:00 Test Item Value Reference Range Interpretation Comments UA Urobilinogen (test code = UA 0.2 0.1-1.0 Urobilinogen) [facility] [id number] 04:36:00 Test Item Value Reference Range Interpretation Comments UA Nitrite (test code Positive *ABN*(10/10/21 = UA Nitrite) 11:36 PM) [facility] [id number] 04:36:00 Test Item Value Reference Range Interpretation Comments UA Leuk Est (test Negative (10/10/21 11:36 code = UA Leuk Est) PM) [facility] [id number] 04:36:00 Test Item Value Reference Range Interpretation Comments UA Sq Epi (test code = UA Sq Epi) Rare /LPF [facility] [id number] 04:36:00 Test Item Value Reference Range Interpretation Comments UA WBC (test code = UA WBC) 0-2 /HPF [facility] [id number] 04:36:00 Test Item Value Reference Range Interpretation Comments UA RBC (test code = UA RBC) 0-2 /HPF [facility] [id number] 04:36:00 Test Item Value Reference Range Interpretation Comments UA Bacteria (test code = UA Few /HPF Bacteria) [facility] [id number] 04:36:00 Test Item Value Reference Range Interpretation Comments UA Comment 1 (test LESS than 2.0 ml of code = UA Comment 1) urine submitted for testing. Microscopic performed on unspun specimen. [facility] CenterQnizgsjBQPZWDJGEG5686-76-17 23:53:00 Test Item Value Reference Range Interpretation Comments [facility] HIV 4th GEN (test Negative *NA*(10/10/21 code = [facility] HIV 4th 6:53 PM) GEN) [facility] CenterQddhlndINKSHVWIPE3769-35-78 23:53:00 Test Item Value Reference Range Interpretation Comments Hep C Ab (test code = Hep C Ab) NON-REACTIVE [facility] CenterOaoctnnWFMWGJNTHV6514-92-23 23:53:00 Test Item Value Reference Range Interpretation Comments Hep Signal to Cut-Off (test code = Hep 0.03 1 Signal to Cut-Off) [facility] NzthoevLELOOWDAEG0310-95-16 23:53:00 Test Item Value Reference Range Interpretation Comments [facility] HIV 4th GEN (test Negative *NA*(10/10/21 code = [facility] HIV 4th 6:53 PM) GEN) [facility] CenterXuyxowzCYADWWXZQS5805-28-08 23:53:00 Test Item Value Reference Range Interpretation Comments Hep C Ab (test code = Hep C Ab) NON-REACTIVE [facility] CenterMqirfzrMQGZFQCAVZ0912-09-29 23:53:00 Test Item Value Reference Range Interpretation Comments Hep Signal to Cut-Off (test code = Hep 0.03 1 Signal to Cut-Off) [facility] NxThera [id number] 23:48:00 Test Item Value Reference Range Interpretation Comments ABO/Rh (test code = ABO/Rh) O POS [facility] [id number] 23:48:00 Test Item Value Reference Range Interpretation Comments Antibody Scrn (test Negative (10/10/21 6:48 code = Antibody Scrn) PM) [facility] [employer] DiagnosticsCHEM [id number] 23:48:00 Test Item Value Reference Range Interpretation Comments Total Protein (test code = Total 7.1 6.4-8.4 Protein) [address]07-15 23:48:00 Test Item Value Reference Range Interpretation Comments Albumin Lvl (test code = Albumin Lvl) 3.2 3.5-5.[address]07-15 23:48:00 Test Item Value Reference Range Interpretation Comments Globulin (test code = Globulin) 3.9 2.7-4.[address]07-15 23:48:00 Test Item Value Reference Range Interpretation Comments A/G Ratio (test code = A/G Ratio) 0.8 1 0.7-1.[address]07-15 23:48:00 Test Item Value Reference Range Interpretation Comments ALANINE AMINOTRANSFERASE 187 See_Comment [A utomated message] (test code = ALANINE The sys tem which AMINOTRANSFERASE) generated this result transmitted ref erence range: <=65. Th e reference range was not used to int erpret this result as normal/abnormal . [facility] [id number] 23:48:00 Test Item Value Reference Range Interpretation Comments AST (test code = AST) 170 See_Comment [Auto mated message] The system which ge nerated this result transmit yuniel reference range : <=37. The reference range was not used to interpr et this result as manohar l/abnormal. [address]07-15 23:48:00 Test Item Value Reference Range Interpretation Comments Alk Phos (test code = Alk Phos) 65 39-136 [place] [address]-07-15 23:48:00 Test Item Value Reference Range Interpretation Comments Bili Total (test code = Bili Total) 0.3 0.2-1.[address]07-15 23:48:00 Test Item Value Reference Range Interpretation Comments Bili Direct (test code no gt See_Comment [Aut omated message] The = Bili Direct) system which generated this result tra nsmitted reference range : <=0.3. The reference r steven was not used to int erpret this result as manohar l/abnormal. [facility] [id number] 23:48:00 Test Item Value Reference Range Interpretation Comments Bili Indirect Unable to See_Comment [Automated (test code = Bili Calculate message] T he system Indirect) which generated this result transmitted reference range : <=1.0. The reference range was not used to interpret this result as normal/abnormal . [place] [id number] 23:48:00 Test Item Value Reference Range Interpretation Comments S Preg (test code = S Negative *NA*(10/10/21 Preg) 6:48 PM) [facility] AustinIemfkrhGTAIFQAPTD2183-57-08 23:48:00 Test Item Value Reference Range Interpretation Comments WBC X 10x3 (test code = WBC X 10x3) 18.6 3.7-10.4 [facility] AustinWwmgvilXCAUMLKQOD7803-84-79 23:48:00 Test Item Value Reference Range Interpretation Comments Platelet (test code = Platelet) 278 133-450 [facility] AustinGjmupnkAOUIZVHCGW0691-60-29 23:48:00 Test Item Value Reference Range Interpretation Comments MPV (test code = MPV) 7.8 7.4-10.4 [facility] AustinPbbrfylCNOWMVVVSO6155-49-29 23:48:00 Test Item Value Reference Range Interpretation Comments ACT (TEG) Rapid (test code = ACT (TEG) 113 s 86-118 Rapid) [facility] AustinCjbxqtvWMNLUHOBQV4111-21-44 23:48:00 Test Item Value Reference Range Interpretation Comments Split Point Rapid (test code = Split 0.6 min Point Rapid) [facility] AustinDatglyxHCOSKNNYEV2121-32-00 23:48:00 Test Item Value Reference Range Interpretation Comments R-time Rapid (test code = R-time 0.7 min 0.4-0.7 Rapid) [place] 612352-07-15 23:48:00 Test Item Value Reference Range Interpretation Comments K-time Rapid (test code = K-time 1.0 min 0.6-2.3 Rapid) [place] 612352-07-15 23:48:00 Test Item Value Reference Range Interpretation Comments Angle Rapid (test code = Angle 78 degrees 64-80 Rapid) [place] 612352-07-15 23:48:00 Test Item Value Reference Range Interpretation Comments Max Amplitude Rapid (test code = Max 69 mm 52-71 Amplitude Rapid) [facility] AustinDwohhygWDWVUTSSWE2387-24-53 23:48:00 Test Item Value Reference Range Interpretation Comments G-value Rapid (test code = G-value 11.3 5.0-11.6 Rapid) [place] 612352-07-15 23:48:00 Test Item Value Reference Range Interpretation Comments Estimated % Lysis Rapid 0.0 See_Comment [Au tomated message] The (test code = Estimated syste m which generated % Lysis Rapid) this result t ransmitted reference range : <=7.5. The reference r steven was not used to int erpret this result as normal/abnormal . [place] 612352-07-15 23:48:00 Test Item Value Reference Range Interpretation Comments Segs (test code = Segs) 81.4 45.0-75.0 [place] 612352-07-15 23:48:00 Test Item Value Reference Range Interpretation Comments Lymphocytes (test code = Lymphocytes) 10.9 20.0-40.0 [place] 612352-07-15 23:48:00 Test Item Value Reference Range Interpretation Comments Monocytes (test code = Monocytes) 7.0 2.0-12.0 [place] 612352-07-15 23:48:00 Test Item Value Reference Range Interpretation Comments Eosinophils (test code = 0.5 See_Comment [A utomated message] The Eosinophils) system which ge nerated this result tra nsmitted reference range : <=4.0. The reference r steven was not used to int erpret this result as normal/abnormal . [place] 612352-07-15 23:48:00 Test Item Value Reference Range Interpretation Comments Basophils (test code = 0.2 See_Comment [Aut omated message] The Basophils) system which ge nerated this result tra nsmitted reference range : <=1.0. The reference r steven was not used to int erpret this result as normal/abnormal . [place] 612352-07-15 23:48:00 Test Item Value Reference Range Interpretation Comments Neutrophils # (test code = Neutrophils 15.2 1.5-8.1 #) [place] [address]-07-15 23:48:00 Test Item Value Reference Range Interpretation Comments Lymphocytes # (test code = Lymphocytes 2.0 1.0-5.5 #) [place] [address]-07-15 23:48:00 Test Item Value Reference Range Interpretation Comments Monocytes # (test code 1.3 See_Comment [Aut omated message] The = Monocytes #) system which generated this result tra nsmitted reference range : <=0.8. The reference r steven was not used to int erpret this result as normal/abnormal . [facility] VwvbughDDORKSFNTD1699-54-53 23:48:00 Test Item Value Reference Range Interpretation Comments Eosinophils # (test code 0.1 See_Comment [A utomated message] The = Eosinophils #) system whic h generated this result tra nsmitted reference range : <=0.5. The reference r steven was not used to int erpret this result as normal/abnormal . [facility] RchhixqAQZVCYGAEC1459-59-67 23:48:00 Test Item Value Reference Range Interpretation Comments Coronavirus (COVID-19) Not Detected (10/10/21 FRANKO (test code = 6:48 PM) Coronavirus (COVID-19) FRANKO) [facility] NzjjcrxUWYPRNXKWR9702-09-88 23:48:00 Test Item Value Reference Range Interpretation Comments Ethanol Lvl (test code = Ethanol Lvl) no gt [facility] KifrjsoYVUWARXYJZ5108-72-10 23:48:00 Test Item Value Reference Range Interpretation Comments Etoh (%) (test code = Etoh (%)) no gt [facility] [employer]xThe[employer] [id number] 23:48:00 Test Item Value Reference Range Interpretation Comments ABO/Rh (test code = ABO/Rh) O POS [facility] [employer] [id number] 23:48:00 Test Item Value Reference Range Interpretation Comments Antibody Scrn (test Negative (10/10/21 6:48 code = Antibody Scrn) PM) [facility] [employer] [id number] 23:48:00 Test Item Value Reference Range Interpretation Comments Total Protein (test code = Total 7.1 6.4-8.4 Protein) [facility] [employer] [id number] 23:48:00 Test Item Value Reference Range Interpretation Comments Albumin Lvl (test code = Albumin Lvl) 3.2 3.5-5.0 [facility] [employer] [id number] 23:48:00 Test Item Value Reference Range Interpretation Comments Globulin (test code = Globulin) 3.9 2.7-4.2 [facility] [employer] [id number] 23:48:00 Test Item Value Reference Range Interpretation Comments A/G Ratio (test code = A/G Ratio) 0.8 1 0.7-1.6 [facility] [id number] 23:48:00 Test Item Value Reference Range Interpretation Comments ALANINE AMINOTRANSFERASE 187 See_Comment [A utomated message] (test code = ALANINE The sys tem which AMINOTRANSFERASE) generated this result transmitted ref erence range: <=65. Th e reference range was not used to int erpret this result as normal/abnormal . [facility] [id number] 23:48:00 Test Item Value Reference Range Interpretation Comments AST (test code = AST) 170 See_Comment [Auto mated message] The system which ge nerated this result transmit yuniel reference range : <=37. The reference range was not used to interpr et this result as manohar l/abnormal. [facility] [id number] 23:48:00 Test Item Value Reference Range Interpretation Comments Alk Phos (test code = Alk Phos) 65 39-136 [facility] [id number] 23:48:00 Test Item Value Reference Range Interpretation Comments Bili Total (test code = Bili Total) 0.3 0.2-1.3 [facility] [id number] 23:48:00 Test Item Value Reference Range Interpretation Comments Bili Direct (test code no gt See_Comment [Aut omated message] The = Bili Direct) system which generated this result tra nsmitted reference range : <=0.3. The reference r steven was not used to int erpret this result as manohar l/abnormal. [facility] [id number] 23:48:00 Test Item Value Reference Range Interpretation Comments Bili Indirect Unable to See_Comment [Automated (test code = Bili Calculate message] T he system Indirect) which generated this result transmitted reference range : <=1.0. The reference range was not used to interpret this result as normal/abnormal . [place] [id number] 23:48:00 Test Item Value Reference Range Interpretation Comments S Preg (test code = S Negative *NA*(10/10/21 Preg) 6:48 PM) [place] 612352-07-15 23:48:00 Test Item Value Reference Range Interpretation Comments WBC X 10x3 (test code = WBC X 10x3) 18.6 3.7-10.4 [place] 612352-07-15 23:48:00 Test Item Value Reference Range Interpretation Comments Platelet (test code = Platelet) 278 133-450 [place] 612352-07-15 23:48:00 Test Item Value Reference Range Interpretation Comments MPV (test code = MPV) 7.8 7.4-10.4 [place] [address]-07-15 23:48:00 Test Item Value Reference Range Interpretation Comments ACT (TEG) Rapid (test code = ACT (TEG) 113 s 86-118 Rapid) [address]07-15 23:48:00 Test Item Value Reference Range Interpretation Comments Split Point Rapid (test code = Split 0.6 min Point Rapid) [address]07-15 23:48:00 Test Item Value Reference Range Interpretation Comments R-time Rapid (test code = R-time 0.7 min 0.4-0.7 Rapid) [address]07-15 23:48:00 Test Item Value Reference Range Interpretation Comments K-time Rapid (test code = K-time 1.0 min 0.6-2.3 Rapid) [address]07-15 23:48:00 Test Item Value Reference Range Interpretation Comments Angle Rapid (test code = Angle 78 degrees 64-80 Rapid) [address]07-15 23:48:00 Test Item Value Reference Range Interpretation Comments Max Amplitude Rapid (test code = Max 69 mm 52-71 Amplitude Rapid) [address]-15 23:48:00 Test Item Value Reference Range Interpretation Comments G-value Rapid (test code = G-value 11.3 5.0-11.6 Rapid) [place] [address]-07-15 23:48:00 Test Item Value Reference Range Interpretation Comments Estimated % Lysis Rapid 0.0 See_Comment [Au tomated message] The (test code = Estimated syste m which generated % Lysis Rapid) this result t ransmitted reference range : <=7.5. The reference r steven was not used to int erpret this result as normal/abnormal . [place] [id number] 23:48:00 Test Item Value Reference Range Interpretation Comments Segs (test code = Segs) 81.4 45.0-75.0 [place] [address]-07-15 23:48:00 Test Item Value Reference Range Interpretation Comments Lymphocytes (test code = Lymphocytes) 10.9 20.0-40.0 [place] [address]-07-15 23:48:00 Test Item Value Reference Range Interpretation Comments Monocytes (test code = Monocytes) 7.0 2.0-12.0 [place] [address]-07-15 23:48:00 Test Item Value Reference Range Interpretation Comments Eosinophils (test code = 0.5 See_Comment [A utomated message] The Eosinophils) system which ge nerated this result tra nsmitted reference range : <=4.0. The reference r steven was not used to int erpret this result as normal/abnormal . [place] [address]-07-15 23:48:00 Test Item Value Reference Range Interpretation Comments Basophils (test code = 0.2 See_Comment [Aut omated message] The Basophils) system which ge nerated this result tra nsmitted reference range : <=1.0. The reference r steven was not used to int erpret this result as normal/abnormal . [place] [address]-07-15 23:48:00 Test Item Value Reference Range Interpretation Comments Neutrophils # (test code = Neutrophils 15.2 1.5-8.1 #) [place] [address]-07-15 23:48:00 Test Item Value Reference Range Interpretation Comments Lymphocytes # (test code = Lymphocytes 2.0 1.0-5.5 #) [place] [address]-07-15 23:48:00 Test Item Value Reference Range Interpretation Comments Monocytes # (test code 1.3 See_Comment [Aut omated message] The = Monocytes #) system which generated this result tra nsmitted reference range : <=0.8. The reference r steven was not used to int erpret this result as normal/abnormal . [place] [address]-07-15 23:48:00 Test Item Value Reference Range Interpretation Comments Eosinophils # (test code 0.1 See_Comment [A utomated message] The = Eosinophils #) system whic h generated this result tra nsmitted reference range : <=0.5. The reference r steven was not used to int erpret this result as normal/abnormal . [id number] Test Item Value Reference Range Interpretation Comments Coronavirus (COVID-19) Not Detected (10/10/21 FRANKO (test code = 6:48 PM) Coronavirus (COVID-19) FRANKO) [id number] 23:48:00 Test Item Value Reference Range Interpretation Comments Ethanol Lvl (test code = Ethanol Lvl) no gt [id number] 23:48:00 Test Item Value Reference Range Interpretation Comments Etoh (%) (test code = Etoh (%)) no gt [facility]
[2022-05-28 10:50] LABS: Absolute Lymphocytes (CBC) 2.6 K/uL (0.7-4.9); Hematocrit 38.7 % (36.0-45.0); Lymphocytes % 26.1 % (15.3-44.8); MCV 90.9 fL (80-100); MPV 7.3 fL (7.6-11.3); RBC Red Blood Cell Count 4.26 M/uL (3.86-4.86)
[2022-05-28 11:01] LABS: Urine Blood 3+ (Negative); Urine Glucose Negative (Negative); Urine Protein 2+ (Negative); Urine Specific Gravity >=1.030 (1.005-1.030); Urine pH 5.5 (5.0-7.0)
[2022-05-28 11:07] LABS: Potassium 3.7 mmol/L (3.5-5.1)
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
[2022-05-28 12:21] VITALS: TEMP 98.4
[2022-05-28 12:23] VITALS: BP 121/70; O2SAT 99
== END 2022-05-28 12:08 | disposition home or self-care (01) ==
LOC: ER 10:14
DX: M54.2 Cervicalgia (principal); R07.9 Chest pain, unspecified; M54.9 Dorsalgia, unspecified; V49.49XA Driver injured in collision with other motor vehicles in traffic accident, initial encounter; F17.210 Nicotine dependence, cigarettes, uncomplicated; Z91.040 Latex allergy status; Z91.048 Other nonmedicinal substance allergy status
CPT/HCPCS: 85025; 80048; 36415; 81025; 81003; 70450; 72125; 71260; 74177; 99284; Q9967

== ENCOUNTER 2023-01-19 09:06 | Emergency (ER) | payer SELFPAY ==
--- OUTSIDE RECORDS SUMMARY | 2023-01-19 09:33 | XMS REPORT | Continuity of Care Document ---
:1990 Author Organization [facility] t Address [address] [facility]. [address] [place] [address] Care Team Providers Name Role Phone No [...] Displaced Displaced Disease Active [place] fracture fracture 8- Health of of 00:00: proximal proximal 00 phalanx of phalanx of left great left great toe with toe with routine routine healing healing Displaced Displaced Disease Active [place] fracture fracture 8-12 Health of second of second 00:00: metatarsal metatarsal 00 bone of bone of right foot right foot with with routine routine healing healing Right Right Disease Active [place] wrist pain wrist pain 8-11 He alth 00:00: 00 HEPATIC HEPATIC Diagnosis Active 2021-10-10 Memoria LACERATION LACERATION 10-10 22:38:00 l PULMONARY PULMONARY 00:00: Herm susana CONTUSION CONTUSION 00 Active 10/10/2021 [facility] LIFE LIFE Diagnosis Active 2021-11-28 Mem oria FLIGHT FLIGHT 10-10 16:48:00 l TRANSFER TRANSFER 00:00: Efrain n Active 00 10/10/2021 [facility] CLOSED CLOSED Diagnosis Active 2021-11-28 Me moria TRAUMATIC TRAUMATIC 10-10 16:48:00 l DISPLACED DISPLACED 00:00: Missy meza FRACTURE FRACTURE 00 OF D OF D Active 10/10/2021 [facility] History of Past Illness Condition Condition Condition Status Onset Resolution Last Treating Co mments Source Name Details Category Date Date Treatment Clinician Date Other Other Problem 2021-10-17 2021-10-17 M emoria specified specified 10-14 00:26:34 00:26:34 l disorders disorders 20:22: Herm susana of adrenal of adrenal 00 gland gland 10/14/2021 10/17/2021 [facility] Unspecifie Unspecifi Problem 2021-10-17 2021-10-17 Memoria d injury ed injury 10-11 00:26:34 00:26:34 l of liver, of liver, 13:23: Herm susana initial initial 00 encounter encounter 10/11/2021 10/17/2021 [facility] Allergies, Adverse Reactions, Alerts Allergy Allergy Status Severity Reaction(s) Onset Inactive Treating Comm ents Source Name Type Date Date Clinician Latex Propensi Active Rash [place] ty to 07-15 Health adverse 00:00: reaction 00 s No Known No Known Active Memori a Medicati Medicati l on on Souleymane Galindo Allergtabby s s Social History Social Habit Start Date Stop Date Quantity Comments Source Exposure to SARS-CoV-2 2021-11-16 2021-11-26 Not sure [place] [facility] (event) 00:00:00 11:27:00 Sex Assigned At [birth year] [place] [facility] 00:00:00 00:00:00 Smoking Status Start Date Stop Date Source Tobacco smoking consumption unknown [facility] Social History 2021-10-10 23:52:27 [facility] Medications Ordered Filled Start Stop Current Ordering Indication Dosage Frequency Signature Comments Components Source Medication Medication Date Date Medication? Clinician (SIG) Name Name MiraLax 2-0 No 17 gm, Memoria 7-20 Route: PO, l 14:00: Daily, Dosing Weight 113.636, kg, Start date: 10/15/21 9:00:00 CDT, Duration: 30 day, Stop date: 11/13/21 9:00:00 CDT MiraLax 2022-0 No 17 gm, Memoria 7-20 Route: PO, l 14:00: Daily, Dosing Weight 113.636, kg, Start date: 10/15/21 9:00:00 CDT, Duration: 30 day, Stop date: 11/13/21 9:00:00 CDT MiraLax 2022-0 No 17 gm, Memoria 7-20 Route: PO, l 14:00: Daily, Dosing Weight 113.636, kg, Start date: 10/15/21 9:00:00 CDT, Duration: 30 day, Stop date: 11/13/21 9:00:00 CDT aspirin 325 2022-0 No 325 mg, 1 M emoria mg tablet 7-19 tab, l 22:00: Route: PO, Souleymane 00 Drug form: TAB, BID, Dosing Weight 113.636, kg, Start date: 10/14/21 17:00:00 CDT, Duration: 30 day, Stop date: 11/13/21 9:00:00 CDT, 0 aspirin 325 2022-0 No 325 mg, 1 M emoria mg tablet 7-19 tab, l 22:00: Route: PO, Drug form: TAB, BID, Dosing Weight 113.636, kg, Start date: 10/14/21 17:00:00 CDT, Duration: 30 day, Stop date: 11/13/21 9:00:00 CDT, 0 aspirin 325 2022-0 No 325 mg, 1 M emoria mg [...] week, # 126 tab, 0 Refill(s), [id number], 149.86, cm, 10/11/21 4:08:00 CDT, Height, 113.636, kg, 10/11/21 4:08:00 CDT, Weight methocarbam 2021-0 Yes 750 mg = 1 Memoria ol 750 mg 7-19 tab, PO, l oral tablet 21:37: Q8Hnow, X H ermann 00 6 week, # 126 tab, 0 Refill(s), [id number], 149.86, cm, 10/11/21 4:08:00 CDT, Height, 113.636, kg, 10/11/21 4:08:00 CDT, Weight methocarbam 2021-0 Yes 750 mg = 1 Memoria ol 750 mg 7-19 tab, PO, l oral tablet 21:37: Q8Hnow, X H ermann 00 6 week, # 126 tab, 0 Refill(s), [id number], 149.86, cm, 10/11/21 4:08:00 CDT, Height, 113.636, kg, 10/11/21 4:08:00 CDT, Weight acetaminoph 2021-0 Yes 1 gm = 2 Me moria en 500 mg 7-19 tab, PO, l oral 21:36: Q6H, X 6 [place] tablet. 00 week, # 336 tab, 0 Refill(s), [id number], 149.86, cm, 10/11/21 4:08:00 CDT, Height, 113.636, kg, 10/11/21 4:08:00 CDT, Weight aspirin 325 2-0 Yes 325 mg = 1 Memoria mg tablet 7-19 tab, PO, l 21:36: BID, # 42 [place] 00 tab, 0 Refill(s), Pharmacy: [facility] #[id number], 149.86, cm, 10/11/21 4:08:00 CDT, Height, 113.636, kg, 10/11/21 4:08:00 CDT, Weight gabapentin 2022-0 Yes 600 mg = 2 M emoria 300 mg oral 7-19 cap, PO, l capsule 21:36: Q8H, # 252 Herm susana 00 cap, 0 Refill(s), Pharmacy: [facility] #[id number], 149.86, cm, 10/11/21 4:08:00 CDT, Height, 113.636, kg, 10/11/21 4:08:00 CDT, Weight acetaminoph 2021-0 Yes 1 gm = 2 Me moria en 500 mg 7-19 tab, PO, l oral 21:36: Q6H, X 6 Soule[place]ane tablet. 00 week, # 336 tab, 0 Refill(s), Pharmacy: [facility] #[id number], 149.86, cm, 10/11/21 4:08:00 CDT, Height, 113.636, kg, 10/11/21 4:08:00 CDT, Weight aspirin 325 2-0 Yes 325 mg = 1 Memoria mg tablet 7-19 tab, PO, l 21:36: BID, # 42 [place] 00 tab, 0 Refill(s), Pharmacy: [facility] #[id number], 149.86, cm, 10/11/21 4:08:00 CDT, Height, 113.636, kg, 10/11/21 4:08:00 CDT, Weight gabapentin 2-0 Yes 600 mg = 2 M emoria 300 mg oral 7-19 cap, PO, l capsule 21:36: Q8H, # 252 Herm susana 00 cap, 0 Refill(s), Pharmacy: [facility] #[id number], 149.86, cm, 10/11/21 4:08:00 CDT, Height, 113.636, kg, 10/11/21 4:08:00 CDT, Weight acetaminoph 2022-0 Yes 1 gm = 2 Me moria en 500 mg 7-19 tab, PO, l oral 21:36: Q6H, X 6 [place] tablet. 00 week, # 336 tab, 0 Refill(s), Pharmacy: [facility] #[id number], 149.86, cm, 10/11/21 4:08:00 CDT, Height, 113.636, kg, 10/11/21 4:08:00 CDT, Weight aspirin 325 Yes 325 mg = 1 Memoria mg tablet 7-19 tab, PO, l 21:36: BID, # 42 [place] 00 tab, 0 Refill(s), Pharmacy: [facility] #[id number], 149.86, cm, 10/11/21 4:08:00 CDT, Height, 113.636, kg, 10/11/21 4:08:00 CDT, Weight gabapentin Yes 600 mg = 2 M emoria 300 mg oral 7-19 cap, PO, l capsule 21:36: Q8H, # 252 Herm susana 00 cap, 0 Refill(s), Pharmacy: [facility] #[id number], 149.86, cm, 10/11/21 4:08:00 CDT, Height, 113.636, kg, 10/11/21 4:08:00 CDT, Weight MiraLax No Notes: Memoria 7-19 Dissolve l 15:00: in 8 oz of Souleymane 00 water or juice. (Same as: Miralax) MiraLax No Notes: Memoria 7-19 Dissolve l 15:00: in 8 oz of [place] 00 water or juice. (Same as: Miralax) MiraLax No Notes: Memoria 7-19 Dissolve l 15:00: in 8 oz of [place] 00 water or juice. (Same as: Miralax) Tums No Notes: Memoria 7-19 (Same As: l 14:32: Tums) Souleymane 00 Calcium Carbonate 500 mg = 200 mg elemental calcium Dose = mg calcium carbonate ( mg elemental calcium) Tums No Notes: Memoria 7-19 (Same As: l 14:32: Tums) Souleymane 00 Calcium Carbonate 500 mg = 200 mg [...] Memoria 7-18 (Same as: l 13:00: Zofran) [place] 00 MEDICATION WASTE Product Size: 4 mg Product Wasted: ___ mg docusate-se No Notes: Brynat myriam nna 50 7-17 (Same as l [...] mg/mL 7-17 Route: l 19:52: IVP, Drug [place] 00 Form: SOLN, Dosing Weight 113.636, kg, ONCALL, STAT, Start date: 10/12/21 14:52:00 CDT, Duration: 1 doses or times, Dose = 2.2ml/kg, Max dose = 100ml -- "To be infused by Radiology Staff ONLY" Omnipaque No 80 mL, Memori a 350 mg/mL 7-17 Route: l 19:52: IVP, Drug [place] Form: SOLN, Dosing Weight 113.636, kg, ONCALL, STAT, Start date: 10/12/21 14:52:00 CDT, Duration: 1 doses or times, Dose = 2.2ml/kg, Max dose = 100ml -- "To be infused by Radiology Staff ONLY" Omnipaque No 80 mL, Memori a 350 mg/mL 7-17 Route: l 19:52: IVP, Drug Souleymane Form: SOLN, Dosing Weight 113.636, kg, ONCALL, [...] 2022-0 No 500 mL, Memor ia PH-7.4 7-17 Infuse l (Bolus) IV 01:17: Over: 1 Herm susana 00 hr, Route: IV, Drug form: INJ, ONCE, Priority: STAT, Dosing Weight 113.636 kg, Start date: 10/11/21 20:17:00 CDT, Stop date: 10/11/21 20:17:00 CDT, Bolus Dose Isolyte S 2-0 No 500 mL, Memor ia PH-7.4 7-17 Infuse l (Bolus) IV 01:17: Over: 1 Herm susana 00 hr, Route: IV, Drug form: INJ, ONCE, Priority: STAT, Dosing Weight 113.636 kg, Start date: 10/11/21 20:17:00 CDT, Stop date: 10/11/21 20:17:00 CDT, Bolus Dose Isolyte S 2-0 No 500 mL, Memor ia PH-7.4 7-17 Infuse l (Bolus) IV 01:17: Over: 1 Herm susana 00 hr, Route: IV, Drug form: INJ, ONCE, Priority: STAT, Dosing Weight 113.636 kg, Start date: 10/11/21 20:17:00 CDT, Stop date: 10/11/21 20:17:00 CDT, Bolus Dose ceFAZolin No Notes: Memori a 7-17 (Same as l 01:00: Ancef) ceFAZolin 0 No Notes: Memori a 7-17 (Same as [...] ONCE, Stop date: 10/11/21 13:49:00 CDT ondansetron 0 No Route: IV, Memoria (ANES) - Drug form: l 18:49: INJ, ONCE, Stop date: 10/11/21 13:49:00 CDT ondansetron 2021-0 No Route: IV, Memoria (ANES) - Drug form: l 18:49: INJ, ONCE, Stop date: 10/11/21 13:49:00 CDT glycopyrrol 2021-0 No Route: IV, Memoria ate (ANES) - Drug form: l 18:44: INJ, ONCE, Stop date: 10/11/21 13:44:00 CDT glycopyrrol 2021-0 No Route: IV, Memoria ate (ANES) 10-11 Drug form: l 18:44: INJ, ONCE, Stop date: 10/11/21 13:44:00 CDT neostigmine 2021-0 No Route: IV, Memoria (ANES) 10-11 Drug form: l 18:44: INJ, ONCE, Stop date: 10/11/21 13:44:00 CDT neostigmine 2021-0 No Route: IV, Memoria (ANES) - Drug form: l 18:44: INJ, ONCE, Stop date: 10/11/21 13:44:00 CDT glycopyrrol 2021-0 No Route: IV, Memoria ate (ANES) - Drug form: l 18:44: INJ, ONCE, Stop date: 10/11/21 13:44:00 CDT neostigmine 2021-0 No Route: IV, Memoria (ANES) 10-11 Drug form: l 18:44: INJ, ONCE, Stop date: 10/11/21 13:44:00 CDT hydromorpho 2021-0 No Route: IV, Memoria ne (ANES) - Drug form: l 18:29: INJ, ONCE, Stop date: 10/11/21 13:29:00 CDT hydromorpho 2021-0 No Route: IV, Memoria ne (ANES) 7-16 [...] 17:07: Apresoline ) Push over 5 minutes No 10 mg, 2 Memoria labetalol 7-16 mL, Route: l 17:07: IVP, Drug form: INJ, Q5Min, Dosing Weight 113.636, kg, PRN Elevated BP, Start date: 10/11/21 12:07:00 CDT, Duration: 5 doses or times, Stop date: 10/12/21 13:18:00 CDT, 0 ANES No Notes: Memoria oxyCODONE 5 7-16 (Same as: l mg 17:07: Roxicodone ) release tablet S No Notes: Memoria fentaNYL 7-16 (Same as: [...] dexamethaso 7-16 Concentrat l ne 17:07: ion: 00 4mg/ml ANE No Notes: Memoria hydrALAZINE 7-16 (Same as: l 17:07: Apresoline ) Push over 5 minutes ANES No 10 mg, 2 Memoria labetalol 7-16 mL, Route: l 17:07: IVP, Drug form: INJ, Q5Min, Dosing Weight 113.636, kg, PRN Elevated BP, Start date: 10/11/21 12:07:00 CDT, Duration: 5 doses or times, Stop date: 10/12/21 13:18:00 CDT, 0 No Notes: Memoria oxyCODONE 5 7-16 (Same as: l mg 17:07: Roxicodone ) release tablet ANE No Notes: Memoria fentaNYL 7-16 (Same as: [...] dexamethaso 7-16 Concentrat l ne 17:07: ion: [place] 00 4mg/ml ANES No Notes: Memoria hydrALAZINE 7-16 (Same as: l 17:07: Apresoline ) Push over 5 minutes ANES No 10 mg, 2 Memoria labetalol 7-16 mL, Route: l 17:07: IVP, Drug form: INJ, Q5Min, Dosing Weight 113.636, kg, PRN Elevated BP, Start date: 10/11/21 12:07:00 CDT, Duration: 5 doses or times, Stop date: 10/12/21 13:18:00 CDT, 0 ANE No Notes: Memoria oxyCODONE 5 7-16 (Same as: l mg 17:07: Roxicodone ) release tablet ANE No Notes: Memoria fentaNYL 7-16 (Same as: [...] 4 mg Product Wasted: ___ mg ANES 2021-0 No Notes: Memoria dexamethaso 7-16 Concentrat l ne 17:07: ion: [place] 00 4mg/ml ketAMINE 2021-0 No Route: IV, Mem oria (ANES) 7-16 Drug form: l 17:02: INJ, ONCE, Stop date: 10/11/21 12:02:00 CDT ketAMINE 2021-0 No Route: IV, Mem oria (ANES) 7-16 Drug form: l 17:02: INJ, ONCE, Stop date: 10/11/21 12:02:00 CDT ketAMINE 2021-0 No Route: IV, Mem oria (ANES) 7-16 Drug form: l 17:02: INJ, ONCE, Stop date: 10/11/21 12:02:00 CDT Lovenox 2022-0 No 40 mg, Memoria -16 Route: l 17:00: SUB-Q, Drug form: INJ, [id number], Dosing Weight 113.636, kg, Start date: 10/11/21 12:00:00 CDT, Duration: 30 day, Stop date: 11/10/21 0:00:00 CDT, 0 Lovenox 2022-0 No 40 mg, Memoria -16 Route: l 17:00: SUB-Q, Drug form: INJ, [id number], Dosing Weight 113.636, kg, Start date: 10/11/21 12:00:00 CDT, Duration: 30 day, Stop date: 11/10/21 0:00:00 CDT, 0 Lovenox 2022-0 No 40 mg, Memoria 7-16 Route: l 17:00: SUB-Q, Drug form: INJ, [id number], Dosing Weight 113.636, kg, Start date: 10/11/21 12:00:00 CDT, Duration: 30 day, Stop date: 11/10/21 0:00:00 CDT, 0 midazolam 2021-0 No Route: IV, Me moria (ANES) -16 Drug form: l 16:47: SOLN, ONCE, Stop date: 10/11/21 11:47:00 CDT lidocaine 0 No Route: IV, Me moria (ANES) 7- Drug form: l 16:47: INJ, ONCE, Stop date: 10/11/21 11:47:00 CDT propofol 0 No Route: IV, Mem oria (ANES) 10-11 Drug form: l 16:47: INJ, ONCE, Stop date: 10/11/21 11:47:00 CDT rocuronium 0 No Route: IV, M emoria (ANES) - Drug form: l 16:47: INJ, ONCE, Stop date: 10/11/21 11:47:00 CDT fentaNYL 0 No Route: IV, Mem oria (ANES) - Drug form: l 16:47: INJ, ONCE, Stop date: 10/11/21 11:47:00 CDT dexamethaso No Route: IV, Memoria ne (ANES) 10-11 Drug form: l 16:47: INJ, ONCE, Stop date: 10/11/21 11:47:00 CDT ceFAZolin No Route: IV, Me moria (ANES) 7- Drug form: l 16:47: INJ, ONCE, Stop date: 10/11/21 11:47:00 CDT midazolam 2021-0 No Route: IV, Me moria (ANES) 7-16 Drug form: l 16:47: SOLN, ONCE, Stop date: 10/11/21 11:47:00 CDT lidocaine 2021-0 No Route: IV, Me moria (ANES) 7- Drug form: l 16:47: INJ, ONCE, Stop date: 10/11/21 11:47:00 CDT propofol 0 No Route: IV, Mem oria (ANES) 7-16 Drug form: l 16:47: INJ, ONCE, Stop date: 10/11/21 11:47:00 CDT rocuronium 0 No Route: IV, M emoria (ANES) 7- Drug form: l 16:47: INJ, ONCE, Stop date: 10/11/21 11:47:00 CDT fentaNYL 2021-0 No Route: IV, Mem oria (ANES) 10-11 Drug form: l 16:47: INJ, ONCE, Stop date: 10/11/21 11:47:00 CDT dexamethaso 0 No Route: IV, Memoria ne (ANES) 10-11 Drug form: l 16:47: INJ, ONCE, Stop date: 10/11/21 11:47:00 CDT ceFAZolin 2021-0 No Route: IV, Me moria (ANES) 10-11 Drug form: l 16:47: INJ, ONCE, Stop date: 10/11/21 11:47:00 CDT midazolam 2021-0 No Route: IV, Me moria (ANES) 10-11 Drug form: l 16:47: SOLN, ONCE, Stop date: 10/11/21 11:47:00 CDT lidocaine 2021-0 No Route: IV, Me moria (ANES) 10-11 Drug form: l 16:47: INJ, ONCE, Stop date: 10/11/21 11:47:00 CDT propofol 2021-0 No Route: IV, Mem oria (ANES) 10-11 Drug form: l 16:47: INJ, ONCE, Stop date: 10/11/21 11:47:00 CDT rocuronium 2021-0 No Route: IV, M emoria (ANES) 10-11 Drug form: l 16:47: INJ, ONCE, Stop date: 10/11/21 11:47:00 CDT fentaNYL 2021-0 No Route: IV, Mem oria (ANES) 10-11 Drug form: l 16:47: INJ, ONCE, Stop date: 10/11/21 11:47:00 CDT dexamethaso 2021-0 No Route: IV, Memoria ne (ANES) 10-11 Drug form: l 16:47: INJ, ONCE, Stop date: 10/11/21 11:47:00 CDT ceFAZolin 2021-0 No Route: IV, Me moria (ANES) 7-16 Drug form: l 16:47: INJ, ONCE, [place] 00 Stop date: 10/11/21 11:47:00 CDT calcium No [...] Notes: Memoria 7-16 (Same l 15:00: as:Robaxin [place] 00 ) tramadol No Notes: Not Mem oria 7-16 to exceed l 15:00: 400mg/day. Souleymane 00 (Same As: Ultram) Robaxin No Notes: Memoria 7-16 (Same l 15:00: as:Robaxin [place] 00 ) tramadol No Notes: Not Mem oria 7-16 to exceed l 15:00: 400mg/day. [place] 00 (Same As: Ultram) Robaxin No Notes: Memoria 7-16 (Same l 15:00: as:Robaxin [place] 00 ) docusate-se No Notes: Bryant myriam [...] en 7-16 acetaminop l 05:57: hen 4000 [place] 00 mg/day (4 gm/day). (Same as: Tylenol Extra Strength) gabapentin No Notes: Memor ia 7-16 (Same as: l 05:57: Neurontin) [place] 00 tramadol No Notes: Not Mem oria 7-16 to exceed l 05:57: 400mg/day. Souleymane 00 (Same As: Ultram) acetaminoph No Notes: Max Memoria en 7-16 acetaminop l 05:57: hen 4000 [place] 00 mg/day (4 gm/day). (Same as: Tylenol Extra Strength) gabapentin No Notes: Memor ia 7-16 (Same as: l 05:57: Neurontin) tramadol No Notes: Not Mem oria 7-16 to exceed l 05:57: 400mg/day. [place] 00 (Same As: Ultram) acetaminoph No Notes: Max Memoria en 7-16 acetaminop l 05:57: hen 4000 [place] 00 mg/day (4 gm/day). (Same as: Tylenol Extra Strength) gabapentin No Notes: Memor ia 7-16 (Same as: l 05:57: Neurontin) tramadol No Notes: Not Mem oria 7-16 to exceed l 05:57: 400mg/day. Souleymane 00 (Same As: Ultram) fentaNYL No Notes: Memoria 7-16 (Same as: l 02:58: Sublimaze) Preservati ve free. lidocaine No Notes: Memori a 7-16 (Same as: l 02:58: Xylocaine) fentaNYL No Notes: Memoria 7-16 (Same as: l 02:58: Sublimaze) [place] 00 Preservati ve free. lidocaine No Notes: [...] No 15 mg, Memori a 15 mg/mL 7-16 Route: l injectable 01:43: IVP, Drug Deangelo rmann solution 00 form: INJ, ONCE, Dosing Weight 113.636, kg, Priority: STAT, Start date: 10/10/21 20:43:00 CDT, Stop date: 10/10/21 20:43:00 CDT Isolyte S No Notes: Memori a PH-7.4 7-16 (Same as: l (Bolus) IV 01:05: Isolyte Robbin Bright rmann 00 PH7.4, Normosol-R PH 7.4, Plasma-Lyt e A ) Isolyte S No Notes: Memori a PH-7.4 7-16 (Same as: l (Bolus) IV 01:05: Isolyte S Deangelo rmann 00 PH7.4, Normosol-R PH 7.4, Plasma-Lyt e A ) Isolyte S No Notes: Memori a PH-7.4 7-16 (Same as: l (Bolus) IV 01:05: Isolyte S Deangelo rmann 00 PH7.4, Normosol-R PH 7.4, Plasma-Lyt e A ) Saline No Notes: Memoria Flush 0.9% 7-15 (Same as: l 23:41: BD [place] 00 Posiflush) morphine No Notes: Memoria Sulfate 7-15 (Same l 23:41: as:MORPhin Souleymane 00 e Sulfate) ondansetron No Notes: Bryant myriam 7-15 (Same as: l 23:41: Zofran) [place] 00 MEDICATION WASTE Product Size: 4 mg Product Wasted: ___ mg Saline No Notes: Memoria Flush 0.9% 7-15 (Same as: l 23:41: BD [place] 00 Posiflush) morphine No Notes: Memoria Sulfate 7-15 (Same l 23:41: as:MORPhin Souleymane 00 e Sulfate) ondansetron No Notes: Bryant myriam 7-15 (Same as: l 23:41: Zofran) [place] 00 MEDICATION WASTE Product Size: 4 mg Product Wasted: ___ mg Saline No Notes: Memoria Flush 0.9% 7-15 (Same as: l 23:41: BD [place]le[place] 00 Posiflush) morphine No Notes: Memoria Sulfate 7-15 (Same l 23:41: as:MORPhin Souleymane 00 e Sulfate) ondansetron No Notes: Bryant myriam 7-15 (Same as: l 23:41: Zofran) [place] 00 MEDICATION WASTE Product Size: 4 mg Product Wasted: ___ mg Vital Signs Vital Name Observation Time Observation Value Comments Source Heart Rate 2021-10-14 21:20:45 [facility] [place] Respitory Rate 2021-10-14 21:20:45 Memori al [place] Systolic (mm Hg) 2021-10-14 21:20:27 Bryant rial [place] Diastolic (mm Hg) 2021-10-14 21:20:27 Mem orial [place] Heart Rate 2021-10-14 21:20:27 [facility] [place] Temperature Oral (F) 2021-10-14 21:20:04 98.6 F [facility] [place] Systolic (mm Hg) 2021-10-14 14:04:44 Bryant rial [place] Diastolic (mm Hg) 2021-10-14 14:04:44 Mem orial [place] Heart Rate 2021-10-14 14:04:44 [facility] [place] Respitory Rate 2021-10-14 13:21:07 Memori al [place] Systolic (mm Hg) 2021-10-14 13:20:39 Bryant rial [place] Diastolic (mm Hg) 2021-10-14 13:20:39 Mem orial [place] Temperature Oral (F) 2021-10-14 13:20:09 98.1 F [facility] [place] Respitory Rate 2021-10-14 09:00:17 Memori al [place] Temperature Oral (F) 2021-10-14 08:59:18 98.4 F [facility] [place] Temperature Oral (F) 2021-10-13 08:56:00 97.9 F [facility] [place] Heart Rate 2021-10-13 08:56:00 [facility] [place] Respitory Rate 2021-10-13 08:56:00 Memori al [place] Systolic (mm Hg) 2021-10-13 08:56:00 Bryant rial [place] Diastolic (mm Hg) 2021-10-13 08:56:00 Mem orial [place] Heart Rate 2021-10-13 05:06:06 [facility] [place] Respitory Rate 2021-10-13 05:06:06 Memori al [place] Systolic (mm Hg) 2021-10-13 05:05:52 Bryant rial [place] Diastolic (mm Hg) 2021-10-13 05:05:52 Mem orial [place] Heart Rate 2021-10-13 05:05:52 [facility] [place] Temperature Oral (F) 2021-10-13 01:37:00 97.8 F [facility] [place] Respitory Rate 2021-10-13 01:37:00 Memori al [place] Systolic (mm Hg) 2021-10-13 01:37:00 Bryant rial [place] Diastolic (mm Hg) 2021-10-13 01:37:00 Mem orial [place] Temperature Oral (F) 2021-10-12 22:00:10 97.6 F [facility] [place] Height 2021-10-11 09:08:00 149.86 cm [facility] [place] Weight 2021-10-11 09:08:00 [facility] [place] BMI Calculated 2021-10-11 09:08:00 Memori al [place] Height 2021-10-10 23:26:00 149.86 cm [facility] [place] BMI Calculated 2021-10-10 23:26:00 Memori al [place] Weight 2021-10-10 23:26:00 [facility] [place] Procedures This patient has no known procedures. Encounters Start End Encounter Admission Attending Care Care Encounter Source Date/Time Date/Time Type Type Clinicians Facility Department ID 2022-01-14 2022-01-14 Outpatient MARIA TERESA [facility] [id number] [place] 13:15:00 13:15:00 [facility] 2022-01-14 2022-01-14 Outpatient [facility] [id number] [place] 13:15:00 13:15:00 Health 2021-11-26 2021-11-26 Office MEGAN Morel 6414 [id number] [place] 13:15:00 13:19:[address] [id number] Health [id number] 2021-11-26 2021-11-26 Outpatient [facility] [id number] [place] 13:15:00 13:15:00 Health 2021-11-20 2021-11-20 Outpatient [facility] [id number] [place] 12:00:00 16:17:41 Health 2021-11-20 2021-11-20 Office MEGAN Montez [facility] [id number] [place] 12:00:00 16:16:22 Visit Zackary DORANTES [id number] [facility] MEDICAL [id number] [address] 7 [id number] 2021-11-06 2021-11-06 Outpatient [facility] [id number] [place] 00:00:00 12:00:08 Health 2021-11-06 2021-11-06 Office MEGAN Montez [facility] [id number] [place] 11:30:00 11:59:06 Visit Zackary DORANTES [id number] [facility] MEDICAL 9.2.7.2.686 [address] 6 [id number] 2021-11-05 2021-11-05 Office MEGAN Morel 6414 [id number] [place] 13:00:00 13:54:56 Visit Moreno ALEXANDER [id number] Health [id number] [id number] 1 2021-11-05 2021-11-05 Outpatient [facility] [id number] [place] 13:00:00 13:54:45 Health 2021-10-10 2021-10-14 Inpatient nullFlavo [facility] [id number] [place] 23:27:00 23:54:[address] 2021-10-10 2021-10-14 Inpatient nullFlavo [facility] [id number] Mem[place] 23:27:00 23:54:00 r Souleymane 69 l [facility] 2021-10-11 2021-10-14 Inpatient E SOLANGE JOSE [facility] [address] [facility] [place] 00:58:00 18:54:00 2021-10-10 2021-10-14 Outpatient Solange Jose [facility] [id number] 18:27:00 18:54:00 Nathaniel Bryant 2021-10-11 2021-10-11 Outpatient MIMI [facility] [id number] [place] 13:30:00 13:30:00 [facility] 2021-10-10 2021-10-10 Outpatient CAP[facility], [facility] [address] [facility] [place] 17:11:00 23:59:00 GERMAINE 2021-10-10 2021-10-10 Outpatient Solange Jose [facility] [id number] 18:27:00 18:27:00 Nathaniel Bryant Results Test Description Test Time Test Comments Results Result Comments Source HEMATOLOGY 2021-10-13 05:49:00 Test Item Value Reference Range Interpretation Comme nts RDW (test code = RDW) 13.0 11.5-14.5 [id number] 05:49:00 Test Item Value Reference Range Interpretation Comments RBC Morph (test code = Normal (10/13/21 12:49 RBC Morph) AM) [id number] 05:49:00 Test Item Value Reference Range Interpretation Comments Plt Morph (test code = Normal (10/13/21 12:49 Plt Morph) AM) [facility]iXSKZHOCBOF7432-22-97 05:49:00 Test Item Value Reference Range Interpretation Comments Segs (test code = Segs) 62.9 45.0-75.0 [facility]WkaznzwVKLHURHPYJ0874-67-86 05:49:00 Test Item Value Reference Range Interpretation Comments Lymphocytes (test code = Lymphocytes) 28.2 20.0-40.0 [place] 844162-07-18 05:49:00 Test Item Value Reference Range Interpretation Comments Monocytes (test code = Monocytes) 7.4 2.0-12.0 [facility]LcshdhySXPUYFOLLF5720-12-21 05:49:00 Test Item Value Reference Range Interpretation Comments Eosinophils (test code = 1.0 See_Comment [A utomated message] The Eosinophils) system which ge nerated this result tra nsmitted reference range : <=4.0. The reference r steven was not used to int erpret this result as normal/abnormal . [place] 844162-07-18 05:49:00 Test Item Value Reference Range Interpretation Comments Basophils (test code = 0.5 See_Comment [Aut omated message] The Basophils) system which ge nerated this result tra nsmitted reference range : <=1.0. The reference r steven was not used to int erpret this result as normal/abnormal . [place] 844162-07-18 05:49:00 Test Item Value Reference Range Interpretation Comments Neutrophils # (test code = Neutrophils 7.0 1.5-8.1 #) [place] 844162-07-18 05:49:00 Test Item Value Reference Range Interpretation Comments Lymphocytes # (test code = Lymphocytes 3.1 1.0-5.5 #) [place] 844162-07-18 05:49:00 Test Item Value Reference Range Interpretation Comments Monocytes # (test code 0.8 See_Comment [Aut omated message] The = Monocytes #) system which generated this result tra nsmitted reference range : <=0.8. The reference r steven was not used to int erpret this result as normal/abnormal . [place] 844162-07-18 05:49:00 Test Item Value Reference Range Interpretation Comments Eosinophils # (test code 0.1 See_Comment [A utomated message] The = Eosinophils #) system [facility] h generated this result tra nsmitted reference range : <=0.5. The reference r steven was not used to int erpret this result as normal/abnormal . [place] 844162-07-18 05:49:00 Test Item Value Reference Range Interpretation Comments Basophils # (test code 0.1 See_Comment [Aut omated message] The = Basophils #) system which generated this result tra nsmitted reference range : <=0.2. The reference r steven was not used to int erpret this result as normal/abnormal . [place] 844162-07-18 05:49:00 Test Item Value Reference Range Interpretation Comments WBC X 10x3 (test code = WBC X 10x3) 11.2 3.7-10.4 [place] 844162-07-18 05:49:00 Test Item Value Reference Range Interpretation Comments Platelet (test code = Platelet) 192 133-450 [facility]GwxplboOHAQOSMZUD0919-66-02 05:49:00 Test Item Value Reference Range Interpretation Comments MPV (test code = MPV) 8.2 7.4-10.4 [place] 833522-07-18 05:49:00 Test Item Value Reference Range Interpretation Comments Glucose Lvl (test code = Glucose Lvl) 109 70-99 [place] 833522-07-18 05:49:00 Test Item Value Reference Range Interpretation Comments BUN (test code = BUN) 8 7-22 [place] 833522-07-18 05:49:00 Test Item Value Reference Range Interpretation Comments Creatinine Lvl (test code = Creatinine 0.76 0.50-1.40 Lvl) [place] 833522-07-18 05:49:00 Test Item Value Reference Range Interpretation Comments Sodium Lvl (test code = Sodium Lvl) 142 135-145 [place] 833522-07-18 05:49:00 Test Item Value Reference Range Interpretation Comments Potassium Lvl (test code = Potassium 3.9 3.5-5.1 Lvl) [facility]2022-07-18 05:49:00 Test Item Value Reference Range Interpretation Comments Chloride Lvl (test code = Chloride Lvl) 111 95-109 [place] 833522-07-18 05:49:00 Test Item Value Reference Range Interpretation Comments CO2 (test code = CO2) 24 24-32 [facility]2022-07-18 05:49:00 Test Item Value Reference Range Interpretation Comments Calcium Lvl (test code = Calcium Lvl) 8.5 8.5-10.5 [facility]2022-07-18 05:49:00 Test Item Value Reference Range Interpretation Comments AGAP (test code = AGAP) 10.9 10.0-20.0 [place] 833522-07-18 05:49:00 Test Item Value Reference Range Interpretation Comments eGFR (test code = eGFR) 109 [place] 844162-07-18 05:49:00 Test Item Value Reference Range Interpretation Comments RBC Morph (test code = Normal (10/13/21 12:49 RBC Morph) AM) [facility]HevveuqPJANOETJFA9650-92-83 05:49:00 Test Item Value Reference Range Interpretation Comments Plt Morph (test code = Normal (10/13/21 12:49 Plt Morph) AM) [place] 844162-07-18 05:49:00 Test Item Value Reference Range Interpretation Comments Segs (test code = Segs) 62.9 45.0-75.0 [facility]2022-07-18 05:49:00 Test Item Value Reference Range Interpretation Comments Glucose Lvl (test code = Glucose Lvl) 109 70-99 [place] 844162-07-18 05:49:00 Test Item Value Reference Range Interpretation Comments Lymphocytes (test code = Lymphocytes) 28.2 20.0-40.0 [place] 844162-07-18 05:49:00 Test Item Value Reference Range Interpretation Comments Monocytes (test code = Monocytes) 7.4 2.0-12.0 [place] 844162-07-18 05:49:00 Test Item Value Reference Range Interpretation Comments Eosinophils (test code = Eosinophils) 1.0 <=4.0 [place] 844162-07-18 05:49:00 Test Item Value Reference Range Interpretation Comments Basophils (test code = Basophils) 0.5 <=1.0 [place] 844162-07-18 05:49:00 Test Item Value Reference Range Interpretation Comments Neutrophils # (test code = Neutrophils 7.0 1.5-8.1 #) [facility]IzvtngbTUKYFBZXQE8353-05-81 05:49:00 Test Item Value Reference Range Interpretation Comments Lymphocytes # (test code = Lymphocytes 3.1 1.0-5.5 #) [place] 844162-07-18 05:49:00 Test Item Value Reference Range Interpretation Comments Monocytes # (test code = Monocytes #) 0.8 <=0.8 [place] [address]-07-18 05:49:00 Test Item Value Reference Range Interpretation Comments Eosinophils # (test code = Eosinophils 0.1 <=0.5 #) [place] 844162-07-18 05:49:00 Test Item Value Reference Range Interpretation Comments Basophils # (test code = Basophils #) 0.1 <=0.2 [facility]37 05:49:00 Test Item Value Reference Range Interpretation Comments RBC X 10x6 (test code = RBC X 10x6) 3.21 4.20-5.40 [facility] QSPUZ2248-35-51 05:49:00 Test Item Value Reference Range Interpretation Comments BUN (test code = BUN) 8 7-22 [facility]PpkripiIRHBYZMCGO4936-86-98 05:49:00 Test Item Value Reference Range Interpretation Comments Hgb (test code = Hgb) 10.0 12.0-16.0 [facility] HospitalYwuxicbWNGBENQRVN3094-66-60 05:49:00 Test Item Value Reference Range Interpretation Comments Hct (test code = Hct) 29.9 36.0-48.0 [facility] HospitalFjjthxgADNZLDXKSR4616-55-59 05:49:00 Test Item Value Reference Range Interpretation Comments MCV (test code = MCV) 92.9 80.0-98.0 [facility] HospitalHckxeszMECFKGSASY4388-57-53 05:49:00 Test Item Value Reference Range Interpretation Comments MCH (test code = MCH) 31.0 pg 27.0-31.0 [facility] HospitalOzyqmnuBIFXGJZVKJ6982-77-35 05:49:00 Test Item Value Reference Range Interpretation Comments MCHC (test code = MCHC) 33.4 32.0-36.0 [facility] HospitalHoabzjmBZSYQEAYAI8785-13-08 05:49:00 Test Item Value Reference Range Interpretation Comments RDW (test code = RDW) 13.0 11.5-14.5 [facility] HospitalNywwfgyJJFPJJTUPD0457-75-99 05:49:00 Test Item Value Reference Range Interpretation Comments WBC X 10x3 (test code = WBC X 10x3) 11.2 3.7-10.4 [facility] HospitalLqeffmxQARMXUOKIO5145-50-23 05:49:00 Test Item Value Reference Range Interpretation Comments Platelet (test code = Platelet) 192 133-450 [facility] HospitalLjscmwyPWDKPEUMIE4009-96-91 05:49:00 Test Item Value Reference Range Interpretation Comments MPV (test code = MPV) 8.2 7.4-10.4 [facility] CampusKua[facility] Dache CLPPF9148-57-36 05:49:00 Test Item Value Reference Range Interpretation Comments Creatinine Lvl (test code = Creatinine 0.76 0.50-1.40 Lvl) [place] 833522-07-18 05:49:00 Test Item Value Reference Range Interpretation Comments Sodium Lvl (test code = Sodium Lvl) 142 135-145 [place] 833522-07-18 05:49:00 Test Item Value Reference Range Interpretation Comments Potassium Lvl (test code = Potassium 3.9 3.5-5.1 Lvl) [place] 833522-07-18 05:49:00 Test Item Value Reference Range Interpretation Comments Chloride Lvl (test code = Chloride Lvl) 111 95-109 [place] 833522-07-18 05:49:00 Test Item Value Reference Range Interpretation Comments CO2 (test code = CO2) 24 24-32 [place] 833522-07-18 05:49:00 Test Item Value Reference Range Interpretation Comments Calcium Lvl (test code = Calcium Lvl) 8.5 8.5-10.5 [place] 833522-07-18 05:49:00 Test Item Value Reference Range Interpretation Comments AGAP (test code = AGAP) 10.9 10.0-20.0 [place] 833522-07-18 05:49:00 Test Item Value Reference Range Interpretation Comments eGFR (test code = eGFR) 109 [place] 844162-07-18 05:49:00 Test Item Value Reference Range Interpretation Comments RBC X 10x6 (test code = RBC X 10x6) 3.21 4.20-5.40 [place] 844162-07-18 05:49:00 Test Item Value Reference Range Interpretation Comments Hgb (test code = Hgb) 10.0 12.0-16.0 [place] 844162-07-18 05:49:00 Test Item Value Reference Range Interpretation Comments Hct (test code = Hct) 29.9 36.0-48.0 [place] 844162-07-18 05:49:00 Test Item Value Reference Range Interpretation Comments MCV (test code = MCV) 92.9 80.0-98.0 [place] 844162-07-18 05:49:00 Test Item Value Reference Range Interpretation Comments MCH (test code = MCH) 31.0 pg 27.0-31.0 [place] 844162-07-18 05:49:00 Test Item Value Reference Range Interpretation Comments MCHC (test code = MCHC) 33.4 32.0-36.0 [place] 844162-07-18 05:49:00 Test Item Value Reference Range Interpretation Comments RDW (test code = RDW) 13.0 11.5-14.5 [place] 844162-07-18 05:49:00 Test Item Value Reference Range Interpretation Comments RBC Morph (test code = Normal (10/13/21 12:49 RBC Morph) AM) [place] 844162-07-18 05:49:00 Test Item Value Reference Range Interpretation Comments Plt Morph (test code = Normal (10/13/21 12:49 Plt Morph) AM) [place] 844162-07-18 05:49:00 Test Item Value Reference Range Interpretation Comments Segs (test code = Segs) 62.9 45.0-75.0 [place] 844162-07-18 05:49:00 Test Item Value Reference Range Interpretation Comments Lymphocytes (test code = Lymphocytes) 28.2 20.0-40.0 [place] 844162-07-18 05:49:00 Test Item Value Reference Range Interpretation Comments Monocytes (test code = Monocytes) 7.4 2.0-12.0 [place] 844162-07-18 05:49:00 Test Item Value Reference Range Interpretation Comments Eosinophils (test code = 1.0 See_Comment [A utomated message] The Eosinophils) system which ge nerated this result tra nsmitted reference range : <=4.0. The reference r steven was not used to int erpret this result as normal/abnormal . [place] 844162-07-18 05:49:00 Test Item Value Reference Range Interpretation Comments Basophils (test code = 0.5 See_Comment [Aut omated message] The Basophils) system which ge nerated this result tra nsmitted reference range : <=1.0. The reference r steven was not used to int erpret this result as normal/abnormal . [place] 844162-07-18 05:49:00 Test Item Value Reference Range Interpretation Comments Neutrophils # (test code = Neutrophils 7.0 1.5-8.1 #) [place] 844162-07-18 05:49:00 Test Item Value Reference Range Interpretation Comments Lymphocytes # (test code = Lymphocytes 3.1 1.0-5.5 #) [facility]FxgujbiAHZDWBNEZB2197-04-55 05:49:00 Test Item Value Reference Range Interpretation Comments Monocytes # (test code 0.8 See_Comment [Aut omated message] The = Monocytes #) system which generated this result tra nsmitted reference range : <=0.8. The reference r steven was not used to int erpret this result as normal/abnormal . [facility] CenterBmiljceKUXTAMYIGT0716-93-24 05:49:00 Test Item Value Reference Range Interpretation Comments Eosinophils # (test code 0.1 See_Comment [A utomated message] The = Eosinophils #) system whic h generated this result tra nsmitted reference range : <=0.5. The reference r steven was not used to int erpret this result as normal/abnormal . [facility] CenterXndpyaiEZHVRNNREY5554-64-30 05:49:00 Test Item Value Reference Range Interpretation Comments Basophils # (test code 0.1 See_Comment [Aut omated message] The = Basophils #) system which generated this result tra nsmitted reference range : <=0.2. The reference r steven was not used to int erpret this result as normal/abnormal . [facility] CenterOgxtpecUNEEQEPVML0884-15-97 05:49:00 Test Item Value Reference Range Interpretation Comments WBC X 10x3 (test code = WBC X 10x3) 11.2 3.7-10.4 [place] 844162-07-18 05:49:00 Test Item Value Reference Range Interpretation Comments Platelet (test code = Platelet) 192 133-450 [place] 844162-07-18 05:49:00 Test Item Value Reference Range Interpretation Comments MPV (test code = MPV) 8.2 7.4-10.4 [facility]2022-07-18 05:49:00 Test Item Value Reference Range Interpretation Comments Glucose Lvl (test code = Glucose Lvl) 109 70-99 [facility]2022-07-18 05:49:00 Test Item Value Reference Range Interpretation Comments BUN (test code = BUN) 8 7-22 [place] 833522-07-18 05:49:00 Test Item Value Reference Range Interpretation Comments Creatinine Lvl (test code = Creatinine 0.76 0.50-1.40 Lvl) [place] 833522-07-18 05:49:00 Test Item Value Reference Range Interpretation Comments Sodium Lvl (test code = Sodium Lvl) 142 135-145 [place] 833522-07-18 05:49:00 Test Item Value Reference Range Interpretation Comments Potassium Lvl (test code = Potassium 3.9 3.5-5.1 Lvl) [place] 833522-07-18 05:49:00 Test Item Value Reference Range Interpretation Comments Chloride Lvl (test code = Chloride Lvl) 111 95-109 [place] 833522-07-18 05:49:00 Test Item Value Reference Range Interpretation Comments CO2 (test code = CO2) 24 24-32 [place] 833522-07-18 05:49:00 Test Item Value Reference Range Interpretation Comments Calcium Lvl (test code = Calcium Lvl) 8.5 8.5-10.5 [place] 833522-07-18 05:49:00 Test Item Value Reference Range Interpretation Comments AGAP (test code = AGAP) 10.9 10.0-20.0 [place] 833522-07-18 05:49:00 Test Item Value Reference Range Interpretation Comments eGFR (test code = eGFR) 109 [place] 844162-07-18 05:49:00 Test Item Value Reference Range Interpretation Comments RBC X 10x6 (test code = RBC X 10x6) 3.21 4.20-5.40 [place] 844162-07-18 05:49:00 Test Item Value Reference Range Interpretation Comments Hgb (test code = Hgb) 10.0 12.0-16.0 [place] 844162-07-18 05:49:00 Test Item Value Reference Range Interpretation Comments Hct (test code = Hct) 29.9 36.0-48.0 [place] 844162-07-18 05:49:00 Test Item Value Reference Range Interpretation Comments MCV (test code = MCV) 92.9 80.0-98.0 [place] 844162-07-18 05:49:00 Test Item Value Reference Range Interpretation Comments MCH (test code = MCH) 31.0 pg 27.0-31.0 [place] 844162-07-18 05:49:00 Test Item Value Reference Range Interpretation Comments MCHC (test code = MCHC) 33.4 32.0-36.0 [place] 833522-07-16 21:09:00 Test Item Value Reference Range Interpretation Comments Potassium Lvl (test code = Potassium 4.6 3.5-5.1 Lvl) [place] 833522-07-16 21:09:00 Test Item Value Reference Range Interpretation Comments Chloride Lvl (test code = Chloride Lvl) 109 95-109 [place] 833522-07-16 21:09:00 Test Item Value Reference Range Interpretation Comments CO2 (test code = CO2) 25 24-32 [place] 833522-07-16 21:09:00 Test Item Value Reference Range Interpretation Comments Calcium Lvl (test code = Calcium Lvl) 9.0 8.5-10.5 [place] 833522-07-16 21:09:00 Test Item Value Reference Range Interpretation Comments AGAP (test code = AGAP) 9.6 10.0-20.0 [place] 833522-07-16 21:09:00 Test Item Value Reference Range Interpretation Comments eGFR (test code = eGFR) 90 [place] 844162-07-16 21:09:00 Test Item Value Reference Range Interpretation Comments WBC (test code = WBC) 11.1 3.7-10.4 [place] 844162-07-16 21:09:00 Test Item Value Reference Range Interpretation Comments RBC (test code = RBC) 3.87 4.20-5.40 [place] 844162-07-16 21:09:00 Test Item Value Reference Range Interpretation Comments Hgb (test code = Hgb) 12.0 12.0-16.0 [place] 15[address]-07-16 21:09:00 Test Item Value Reference Range Interpretation Comments Hct (test code = Hct) 35.4 36.0-48.0 [place] 15[address]-07-16 21:09:00 Test Item Value Reference Range Interpretation Comments MCV (test code = MCV) 91.6 80.0-98.0 [place] 844162-07-16 21:09:00 Test Item Value Reference Range Interpretation Comments MCH (test code = MCH) 31.0 pg 27.0-31.0 [place] 844162-07-16 21:09:00 Test Item Value Reference Range Interpretation Comments MCHC (test code = MCHC) 33.9 32.0-36.0 [place] 844162-07-16 21:09:00 Test Item Value Reference Range Interpretation Comments RDW (test code = RDW) 13.2 11.5-14.5 [place] 844162-07-16 21:09:00 Test Item Value Reference Range Interpretation Comments Platelet (test code = Platelet) 256 133-450 [facility] CenterVgdtbfvLFRNVLXZSV3434-65-48 21:09:00 Test Item Value Reference Range Interpretation Comments MPV (test code = MPV) 7.7 7.4-10.4 [place] 844162-07-16 21:09:00 Test Item Value Reference Range Interpretation Comments Segs (test code = Segs) 86.1 45.0-75.0 [facility] CenterWyrkxlxTWBBUAPJHV9456-13-41 21:09:00 Test Item Value Reference Range Interpretation Comments Lymphocytes (test code = Lymphocytes) 8.2 20.0-40.0 [place] 844162-07-16 21:09:00 Test Item Value Reference Range Interpretation Comments Monocytes (test code = Monocytes) 5.1 2.0-12.0 [facility] CenterAvrvhaiTRPKKOLXGP0183-78-91 21:09:00 Test Item Value Reference Range Interpretation Comments Eosinophils (test code = 0.5 See_Comment [A utomated message] The Eosinophils) system which ge nerated this result tra nsmitted reference range : <=4.0. The reference r steven was not used to int erpret this result as normal/abnormal . [facility] CenterUbdbawiEAAFNFAEAB7064-79-73 21:09:00 Test Item Value Reference Range Interpretation Comments Basophils (test code = 0.1 See_Comment [Aut omated message] The Basophils) system which ge nerated this result tra nsmitted reference range : <=1.0. The reference r steven was not used to int erpret this result as normal/abnormal . [place] 844162-07-16 21:09:00 Test Item Value Reference Range Interpretation Comments Neutrophils # (test code = Neutrophils 9.5 1.5-8.1 #) [facility] CenterZjwtzhpSSNIDMGPBF8676-34-60 21:09:00 Test Item Value Reference Range Interpretation Comments Lymphocytes # (test code = Lymphocytes 0.9 1.0-5.5 #) [place] 844162-07-16 21:09:00 Test Item Value Reference Range Interpretation Comments Monocytes # (test code 0.6 See_Comment [Aut omated message] The = Monocytes #) system which generated this result tra nsmitted reference range : <=0.8. The reference r steven was not used to int erpret this result as normal/abnormal . [place] 844162-07-16 21:09:00 Test Item Value Reference Range Interpretation Comments Eosinophils # (test code 0.1 See_Comment [A utomated message] The = Eosinophils #) system whic h generated this result tra nsmitted reference range : <=0.5. The reference r steven was not used to int erpret this result as normal/abnormal . [facility]2022-07-16 21:09:00 Test Item Value Reference Range Interpretation Comments Glucose Lvl (test code = Glucose Lvl) 143 70-99 [place] 833522-07-16 21:09:00 Test Item Value Reference Range Interpretation Comments BUN (test code = BUN) 13 7-22 [place] 833522-07-16 21:09:00 Test Item Value Reference Range Interpretation Comments Creatinine Lvl (test code = Creatinine 0.89 0.50-1.40 Lvl) [place] 833522-07-16 21:09:00 Test Item Value Reference Range Interpretation Comments Sodium Lvl (test code = Sodium Lvl) 139 135-145 [place] 833522-07-16 21:09:00 Test Item Value Reference Range Interpretation Comments Potassium Lvl (test code = Potassium 4.6 3.5-5.1 Lvl) [place] 833522-07-16 21:09:00 Test Item Value Reference Range Interpretation Comments Chloride Lvl (test code = Chloride Lvl) 109 95-109 [place] 833522-07-16 21:09:00 Test Item Value Reference Range Interpretation Comments CO2 (test code = CO2) 25 24-32 [place] 833522-07-16 21:09:00 Test Item Value Reference Range Interpretation Comments Calcium Lvl (test code = Calcium Lvl) 9.0 8.5-10.5 [facility]2022-07-16 21:09:00 Test Item Value Reference Range Interpretation Comments AGAP (test code = AGAP) 9.6 10.0-20.0 [facility]2022-07-16 21:09:00 Test Item Value Reference Range Interpretation Comments eGFR (test code = eGFR) 90 [facility]TpqmddrYSWEWIHDGY6644-49-92 21:09:00 Test Item Value Reference Range Interpretation Comments WBC (test code = WBC) 11.1 3.7-10.4 [place] 844162-07-16 21:09:00 Test Item Value Reference Range Interpretation Comments RBC (test code = RBC) 3.87 4.20-5.40 [facility] CenterWvpggdkWRHMPVPOED0137-89-36 21:09:00 Test Item Value Reference Range Interpretation Comments Hgb (test code = Hgb) 12.0 12.0-16.0 [facility] CenterUqpabkdFCNWXFPUJX4446-26-65 21:09:00 Test Item Value Reference Range Interpretation Comments Hct (test code = Hct) 35.4 36.0-48.0 [facility] CenterQsesoeoDWHDARSNOX6110-25-03 21:09:00 Test Item Value Reference Range Interpretation Comments MCV (test code = MCV) 91.6 80.0-98.0 [facility] CenterKpmwvhgJOKEMCTVUK2367-36-58 21:09:00 Test Item Value Reference Range Interpretation Comments MCH (test code = MCH) 31.0 pg 27.0-31.0 [facility] CenterKzhvdspRFSGKNUUVH5760-18-27 21:09:00 Test Item Value Reference Range Interpretation Comments MCHC (test code = MCHC) 33.9 32.0-36.0 [facility] CenterMxkbbrePWOFVHJWGD8402-55-08 21:09:00 Test Item Value Reference Range Interpretation Comments RDW (test code = RDW) 13.2 11.5-14.5 [place] 844162-07-16 21:09:00 Test Item Value Reference Range Interpretation Comments Platelet (test code = Platelet) 256 133-450 [facility] CenterPyogkklGTRDAZGDTU9421-28-15 21:09:00 Test Item Value Reference Range Interpretation Comments MPV (test code = MPV) 7.7 7.4-10.4 [facility] CenterZdvyehqWCNTHANOMD9316-41-47 21:09:00 Test Item Value Reference Range Interpretation Comments Segs (test code = Segs) 86.1 45.0-75.0 [place] 844162-07-16 21:09:00 Test Item Value Reference Range Interpretation Comments Lymphocytes (test code = Lymphocytes) 8.2 20.0-40.0 [place] 844162-07-16 21:09:00 Test Item Value Reference Range Interpretation Comments Monocytes (test code = Monocytes) 5.1 2.0-12.0 [place] 844162-07-16 21:09:00 Test Item Value Reference Range Interpretation Comments Eosinophils (test code = 0.5 See_Comment [A utomated message] The Eosinophils) system which ge nerated this result tra nsmitted reference range : <=4.0. The reference r steven was not used to int erpret this result as normal/abnormal . [place] 15[address]-07-16 21:09:00 Test Item Value Reference Range Interpretation Comments Basophils (test code = 0.1 See_Comment [Aut omated message] The Basophils) system which ge nerated this result tra nsmitted reference range : <=1.0. The reference r steven was not used to int erpret this result as normal/abnormal . [facility] CenterIejuontRFFBTKQPKV5621-90-82 21:09:00 Test Item Value Reference Range Interpretation Comments Neutrophils # (test code = Neutrophils 9.5 1.5-8.1 #) [place] 844162-07-16 21:09:00 Test Item Value Reference Range Interpretation Comments Lymphocytes # (test code = Lymphocytes 0.9 1.0-5.5 #) [place] 844162-07-16 21:09:00 Test Item Value Reference Range Interpretation Comments Monocytes # (test code 0.6 See_Comment [Aut omated message] The = Monocytes #) system which generated this result tra nsmitted reference range : <=0.8. The reference r steven was not used to int erpret this result as normal/abnormal . [facility]fnkecjXPLSXMAYBD8729[facility]60-30 21:09:00 Test Item Value Reference Range Interpretation Comments Eosinophils # (test code 0.1 See_Comment [A utomated message] The = Eosinophils #) system wh h generated this result tra nsmitted reference range : <=0.5. The reference r steven was not used to int erpret this result as normal/abnormal . [place] 833522-07-16 21:09:00 Test Item Value Reference Range Interpretation Comments Glucose Lvl (test code = Glucose Lvl) 143 70-99 [place] 833522-07-16 21:09:00 Test Item Value Reference Range Interpretation Comments BUN (test code = BUN) 13 7-22 [place] 833522-07-16 21:09:00 Test Item Value Reference Range Interpretation Comments Creatinine Lvl (test code = Creatinine 0.89 0.50-1.40 Lvl) [place] 833522-07-16 21:09:00 Test Item Value Reference Range Interpretation Comments Sodium Lvl (test code = Sodium Lvl) 139 135-145 [place] 833522-07-16 21:09:00 Test Item Value Reference Range Interpretation Comments Sodium Lvl (test code = Sodium Lvl) 139 135-145 [place] 833522-07-16 21:09:00 Test Item Value Reference Range Interpretation Comments Potassium Lvl (test code = Potassium 4.6 3.5-5.1 Lvl) [place] 833522-07-16 21:09:00 Test Item Value Reference Range Interpretation Comments Chloride Lvl (test code = Chloride Lvl) 109 95-109 [facility]2022-07-16 21:09:00 Test Item Value Reference Range Interpretation Comments CO2 (test code = CO2) 25 24-32 [place] 833522-07-16 21:09:00 Test Item Value Reference Range Interpretation Comments Calcium Lvl (test code = Calcium Lvl) 9.0 8.5-10.5 [place] 833522-07-16 21:09:00 Test Item Value Reference Range Interpretation Comments AGAP (test code = AGAP) 9.6 10.0-20.0 [place] 833522-07-16 21:09:00 Test Item Value Reference Range Interpretation Comments eGFR (test code = eGFR) 90 [place] 844162-07-16 21:09:00 Test Item Value Reference Range Interpretation Comments WBC (test code = WBC) 11.1 3.7-10.4 [place] 844162-07-16 21:09:00 Test Item Value Reference Range Interpretation Comments RBC (test code = RBC) 3.87 4.20-5.40 [facility]EipxieyELDODHNORH8808-85-11 21:09:00 Test Item Value Reference Range Interpretation Comments Hgb (test code = Hgb) 12.0 12.0-16.0 [place] 844162-07-16 21:09:00 Test Item Value Reference Range Interpretation Comments Hct (test code = Hct) 35.4 36.0-48.0 [facility]MktxsxwHLXUGYUCVX0968-32-98 21:09:00 Test Item Value Reference Range Interpretation Comments MCV (test code = MCV) 91.6 80.0-98.0 [facility] CenterEzyitzaFEGLELWUKT0312-28-91 21:09:00 Test Item Value Reference Range Interpretation Comments MCH (test code = MCH) 31.0 pg 27.0-31.0 [facility] CenterSuiczccZUSFMZEEAL2159-05-99 21:09:00 Test Item Value Reference Range Interpretation Comments MCHC (test code = MCHC) 33.9 32.0-36.0 [facility] CenterLcrudybRONYMZSGXP1667-28-39 21:09:00 Test Item Value Reference Range Interpretation Comments RDW (test code = RDW) 13.2 11.5-14.5 [facility] CenterQmqtoxeOPGIUXCKSX7959-82-02 21:09:00 Test Item Value Reference Range Interpretation Comments Platelet (test code = Platelet) 256 133-450 [facility] CenterNzfaowaDLTCLQFQFJ0804-87-58 21:09:00 Test Item Value Reference Range Interpretation Comments MPV (test code = MPV) 7.7 7.4-10.4 [facility] CenterEznaqaaOMSQNPSGFW3909-69-69 21:09:00 Test Item Value Reference Range Interpretation Comments Segs (test code = Segs) 86.1 45.0-75.0 [facility] CenterYbleriuACIGOYPFUP0368-40-23 21:09:00 Test Item Value Reference Range Interpretation Comments Lymphocytes (test code = Lymphocytes) 8.2 20.0-40.0 [facility] CenterSnmcqgjZQJWKQUFGY5602-39-99 21:09:00 Test Item Value Reference Range Interpretation Comments Monocytes (test code = Monocytes) 5.1 2.0-12.0 [facility] CenterJkoiiojHIGNIECVRD9703-85-29 21:09:00 Test Item Value Reference Range Interpretation Comments Eosinophils (test code = Eosinophils) 0.5 <=4.0 [place] [address]-07-16 21:09:00 Test Item Value Reference Range Interpretation Comments Basophils (test code = Basophils) 0.1 <=1.0 [place] 15[address]-07-16 21:09:00 Test Item Value Reference Range Interpretation Comments Neutrophils # (test code = Neutrophils 9.5 1.5-8.1 #) [place] 844162-07-16 21:09:00 Test Item Value Reference Range Interpretation Comments Lymphocytes # (test code = Lymphocytes 0.9 1.0-5.5 #) [place] 844162-07-16 21:09:00 Test Item Value Reference Range Interpretation Comments Monocytes # (test code = Monocytes #) 0.6 <=0.8 [place] 15[address]-07-16 21:09:00 Test Item Value Reference Range Interpretation Comments Eosinophils # (test code = Eosinophils 0.1 <=0.5 #) [place] 833522-07-16 21:09:00 Test Item Value Reference Range Interpretation Comments Glucose Lvl (test code = Glucose Lvl) 143 70-99 [place] 833522-07-16 21:09:00 Test Item Value Reference Range Interpretation Comments BUN (test code = BUN) 13 7-22 [place] 833522-07-16 21:09:00 Test Item Value Reference Range Interpretation Comments Creatinine Lvl (test code = Creatinine 0.89 0.50-1.40 Lvl) [place] 833522-07-16 14:53:00 Test Item Value Reference Range Interpretation Comments Lactic Acid Lvl (test code = Lactic 1.6 0.5-2.2 Acid Lvl) [place] 833522-07-16 14:53:00 Test Item Value Reference Range Interpretation Comments Lactic Acid Lvl (test code = Lactic 1.6 0.5-2.2 Acid Lvl) [place] 833522-07-16 14:53:00 Test Item Value Reference Range Interpretation Comments Lactic Acid Lvl (test code = Lactic 1.6 0.5-2.2 Acid Lvl) [place] 833522-07-16 10:58:00 Test Item Value Reference Range Interpretation Comments Lactic Acid Lvl (test code = Lactic 2.2 0.5-2.2 Acid Lvl) [place] 833522-07-16 10:58:00 Test Item Value Reference Range Interpretation Comments Lactic Acid Lvl (test code = Lactic 2.2 0.5-2.2 Acid Lvl) [place] 833522-07-16 10:58:00 Test Item Value Reference Range Interpretation Comments Lactic Acid Lvl (test code = Lactic 2.2 0.5-2.2 Acid Lvl) [place] 833522-07-16 07:51:00 Test Item Value Reference Range Interpretation Comments Lactic Acid Lvl (test code = Lactic 2.4 0.5-2.2 Acid Lvl) [place] 833522-07-16 07:51:00 Test Item Value Reference Range Interpretation Comments Lactic Acid Lvl (test code = Lactic 2.4 0.5-2.2 Acid Lvl) [place] 833522-07-16 07:51:00 Test Item Value Reference Range Interpretation Comments Lactic Acid Lvl (test code = Lactic 2.4 0.5-2.2 Acid Lvl) [place] 833522-07-16 06:05:00 Test Item Value Reference Range Interpretation Comments Glucose Lvl (test code = Glucose Lvl) 141 70-99 [place] 833522-07-16 06:05:00 Test Item Value Reference Range Interpretation Comments BUN (test code = BUN) 12 7-22 [place] 833522-07-16 06:05:00 Test Item Value Reference Range Interpretation Comments Creatinine Lvl (test code = Creatinine 0.90 0.50-1.40 Lvl) [place] 833522-07-16 06:05:00 Test Item Value Reference Range Interpretation Comments Sodium Lvl (test code = Sodium Lvl) 143 135-145 [place] 833522-07-16 06:05:00 Test Item Value Reference Range Interpretation Comments Potassium Lvl (test code = Potassium 4.5 3.5-5.1 Lvl) [place] 833522-07-16 06:05:00 Test Item Value Reference Range Interpretation Comments Chloride Lvl (test code = Chloride Lvl) 111 95-109 [place] 833522-07-16 06:05:00 Test Item Value Reference Range Interpretation Comments CO2 (test code = CO2) 26 24-32 [facility]2022-07-16 06:05:00 Test Item Value Reference Range Interpretation Comments Calcium Lvl (test code = Calcium Lvl) 8.2 8.5-10.5 [facility]2022-07-16 06:05:00 Test Item Value Reference Range Interpretation Comments AGAP (test code = AGAP) 10.5 10.0-20.0 [facility]2022-07-16 06:05:00 Test Item Value Reference Range Interpretation Comments eGFR (test code = eGFR) 89 [facility]MvdvmpxCUDOFGGPPD4308-47-11 06:05:00 Test Item Value Reference Range Interpretation Comments WBC X 10x3 (test code = WBC X 10x3) 11.4 3.7-10.4 [facility] CenterRlbehtmKLPTAOZTCF8249-16-42 06:05:00 Test Item Value Reference Range Interpretation Comments RBC X 10x6 (test code = RBC X 10x6) 4.16 4.20-5.40 [facility] CenterHrqciouHXVGTZJTPD2502-77-78 06:05:00 Test Item Value Reference Range Interpretation Comments Hgb (test code = Hgb) 12.6 12.0-16.0 [facility] CenterMavywleVFCIMUAVCS4446-82-36 06:05:00 Test Item Value Reference Range Interpretation Comments Hct (test code = Hct) 38.3 36.0-48.0 [facility] CenterCaqlyifJOJXPUXUXB0001-90-42 06:05:00 Test Item Value Reference Range Interpretation Comments MCV (test code = MCV) 92.0 80.0-98.0 [place] 844162-07-16 06:05:00 Test Item Value Reference Range Interpretation Comments MCH (test code = MCH) 30.4 pg 27.0-31.0 [facility] CenterKorspstADEBNMVMIW6952-20-20 06:05:00 Test Item Value Reference Range Interpretation Comments MCHC (test code = MCHC) 33.0 32.0-36.0 [place] 844162-07-16 06:05:00 Test Item Value Reference Range Interpretation Comments RDW (test code = RDW) 12.9 11.5-14.5 [place] 844162-07-16 06:05:00 Test Item Value Reference Range Interpretation Comments Platelet (test code = Platelet) 259 133-450 [facility] CenterDueptrnXZVRAILCJZ0457-26-02 06:05:00 Test Item Value Reference Range Interpretation Comments MPV (test code = MPV) 7.5 7.4-10.4 [facility] CenterWhqqlvxZLTSLUEYCC2996-19-92 06:05:00 Test Item Value Reference Range Interpretation Comments Segs (test code = Segs) 80.9 45.0-75.0 [facility] CenterOylolavXEIUVFLULJ9925-62-37 06:05:00 Test Item Value Reference Range Interpretation Comments Lymphocytes (test code = Lymphocytes) 11.8 20.0-40.0 [facility] CenterYhgtimeVLAJPLGTJD6953-93-01 06:05:00 Test Item Value Reference Range Interpretation Comments Monocytes (test code = Monocytes) 7.1 2.0-12.0 [facility] CenterIjutyomIDXWVLHKGN5463-82-96 06:05:00 Test Item Value Reference Range Interpretation Comments Eosinophils (test code = 0.1 See_Comment [A utomated message] The Eosinophils) system which ge nerated this result tra nsmitted reference range : <=4.0. The reference r steven was not used to int erpret this result as normal/abnormal . [facility] CenterQypczugQZYXQFJXBH0444-26-62 06:05:00 Test Item Value Reference Range Interpretation Comments Basophils (test code = 0.1 See_Comment [Aut omated message] The Basophils) system which ge nerated this result tra nsmitted reference range : <=1.0. The reference r steven was not used to int erpret this result as normal/abnormal . [facility] CenterYrkbvjkJUHGLXFPNJ6406-98-01 06:05:00 Test Item Value Reference Range Interpretation Comments Neutrophils # (test code = Neutrophils 9.2 1.5-8.1 #) [facility] CenterIxvkfxzTZRJHGOUNG5682-91-66 06:05:00 Test Item Value Reference Range Interpretation Comments Lymphocytes # (test code = Lymphocytes 1.3 1.0-5.5 #) [place] 844162-07-16 06:05:00 Test Item Value Reference Range Interpretation Comments Monocytes # (test code 0.8 See_Comment [Aut omated message] The = Monocytes #) system which generated this result tra nsmitted reference range : <=0.8. The reference r steven was not used to int erpret this result as normal/abnormal . [facility]2022-07-16 06:05:00 Test Item Value Reference Range Interpretation Comments Glucose Lvl (test code = Glucose Lvl) 141 70-99 [place] 833522-07-16 06:05:00 Test Item Value Reference Range Interpretation Comments BUN (test code = BUN) 12 7-22 [place] 833522-07-16 06:05:00 Test Item Value Reference Range Interpretation Comments Creatinine Lvl (test code = Creatinine 0.90 0.50-1.40 Lvl) [place] 833522-07-16 06:05:00 Test Item Value Reference Range Interpretation Comments Sodium Lvl (test code = Sodium Lvl) 143 135-145 [place] 833522-07-16 06:05:00 Test Item Value Reference Range Interpretation Comments Potassium Lvl (test code = Potassium 4.5 3.5-5.1 Lvl) [place] 833522-07-16 06:05:00 Test Item Value Reference Range Interpretation Comments Chloride Lvl (test code = Chloride Lvl) 111 95-109 [place] 833522-07-16 06:05:00 Test Item Value Reference Range Interpretation Comments CO2 (test code = CO2) 26 24-32 [place] 833522-07-16 06:05:00 Test Item Value Reference Range Interpretation Comments Calcium Lvl (test code = Calcium Lvl) 8.2 8.5-10.5 [place] 833522-07-16 06:05:00 Test Item Value Reference Range Interpretation Comments AGAP (test code = AGAP) 10.5 10.0-20.0 [place] 833522-07-16 06:05:00 Test Item Value Reference Range Interpretation Comments eGFR (test code = eGFR) 89 [facility] CenterXdafxvuSXXCCSBOIH3090-64-70 06:05:00 Test Item Value Reference Range Interpretation Comments WBC X 10x3 (test code = WBC X 10x3) 11.4 3.7-10.4 [place] 844162-07-16 06:05:00 Test Item Value Reference Range Interpretation Comments RBC X 10x6 (test code = RBC X 10x6) 4.16 4.20-5.40 [place] 844162-07-16 06:05:00 Test Item Value Reference Range Interpretation Comments Hgb (test code = Hgb) 12.6 12.0-16.0 [facility] CenterVuqmwqmQMAQLBXREC6463-13-68 06:05:00 Test Item Value Reference Range Interpretation Comments Hct (test code = Hct) 38.3 36.0-48.0 [facility] CenterHmuaezqLXGIYLMOIT7398-28-05 06:05:00 Test Item Value Reference Range Interpretation Comments MCV (test code = MCV) 92.0 80.0-98.0 [facility] CenterWdonsogVGMNAHCXQA4534-57-77 06:05:00 Test Item Value Reference Range Interpretation Comments MCH (test code = MCH) 30.4 pg 27.0-31.0 [facility] CenterFidyxgfQKNISFJQXW3199-16-57 06:05:00 Test Item Value Reference Range Interpretation Comments MCHC (test code = MCHC) 33.0 32.0-36.0 [facility] CenterIpvvxfvWYNGSNAVDV0936-63-32 06:05:00 Test Item Value Reference Range Interpretation Comments RDW (test code = RDW) 12.9 11.5-14.5 [facility] CenterVyuwunrKOXKCMVNHC2473-90-15 06:05:00 Test Item Value Reference Range Interpretation Comments Platelet (test code = Platelet) 259 133-450 [facility] CenterOjihbedHBYEIQKWRK0530-24-73 06:05:00 Test Item Value Reference Range Interpretation Comments MPV (test code = MPV) 7.5 7.4-10.4 [facility] CenterYigkeyrLSIJOYZJRG1996-58-23 06:05:00 Test Item Value Reference Range Interpretation Comments Segs (test code = Segs) 80.9 45.0-75.0 [facility] CenterPhbvdlhCWYIDPKUUP6887-53-00 06:05:00 Test Item Value Reference Range Interpretation Comments Lymphocytes (test code = Lymphocytes) 11.8 20.0-40.0 [facility] CenterZimblkeRSAFEQKXHH0013-77-89 06:05:00 Test Item Value Reference Range Interpretation Comments Monocytes (test code = Monocytes) 7.1 2.0-12.0 [facility] CenterFrxykthFVIOPXWSIN3601-12-01 06:05:00 Test Item Value Reference Range Interpretation Comments Eosinophils (test code = 0.1 See_Comment [A utomated message] The Eosinophils) system which ge nerated this result tra nsmitted reference range : <=4.0. The reference r steven was not used to int erpret this result as normal/abnormal . [place] 844162-07-16 06:05:00 Test Item Value Reference Range Interpretation Comments Basophils (test code = 0.1 See_Comment [Aut omated message] The Basophils) system which ge nerated this result tra nsmitted reference range : <=1.0. The reference r steven was not used to int erpret this result as normal/abnormal . [place] 844162-07-16 06:05:00 Test Item Value Reference Range Interpretation Comments Neutrophils # (test code = Neutrophils 9.2 1.5-8.1 #) [facility] CenterEstmmqvXMBNCVMOPY2878-69-71 06:05:00 Test Item Value Reference Range Interpretation Comments Lymphocytes # (test code = Lymphocytes 1.3 1.0-5.5 #) [facility] CenterQlokrnvFUBHGYTFPG3615-81-33 06:05:00 Test Item Value Reference Range Interpretation Comments Monocytes # (test code 0.8 See_Comment [Aut omated message] The = Monocytes #) system which generated this result tra nsmitted reference range : <=0.8. The reference r steven was not used to int erpret this result as normal/abnormal . [facility]2022-07-16 06:05:00 Test Item Value Reference Range Interpretation Comments Glucose Lvl (test code = Glucose Lvl) 141 70-99 [place] 833522-07-16 06:05:00 Test Item Value Reference Range Interpretation Comments BUN (test code = BUN) 12 7-22 [place] 833522-07-16 06:05:00 Test Item Value Reference Range Interpretation Comments Creatinine Lvl (test code = Creatinine 0.90 0.50-1.40 Lvl) [facility]2022-07-16 06:05:00 Test Item Value Reference Range Interpretation Comments Sodium Lvl (test code = Sodium Lvl) 143 135-145 [place] 833522-07-16 06:05:00 Test Item Value Reference Range Interpretation Comments Potassium Lvl (test code = Potassium 4.5 3.5-5.1 Lvl) [place] 833522-07-16 06:05:00 Test Item Value Reference Range Interpretation Comments Chloride Lvl (test code = Chloride Lvl) 111 95-109 [place] 833522-07-16 06:05:00 Test Item Value Reference Range Interpretation Comments CO2 (test code = CO2) 26 24-32 [facility]2022-07-16 06:05:00 Test Item Value Reference Range Interpretation Comments Calcium Lvl (test code = Calcium Lvl) 8.2 8.5-10.5 [place] 833522-07-16 06:05:00 Test Item Value Reference Range Interpretation Comments AGAP (test code = AGAP) 10.5 10.0-20.0 [facility]2022-07-16 06:05:00 Test Item Value Reference Range Interpretation Comments eGFR (test code = eGFR) 89 [facility] CenterZyzmctaIZZBAPDRDX3256-42-96 06:05:00 Test Item Value Reference Range Interpretation Comments WBC X 10x3 (test code = WBC X 10x3) 11.4 3.7-10.4 [place] 844162-07-16 06:05:00 Test Item Value Reference Range Interpretation Comments RBC X 10x6 (test code = RBC X 10x6) 4.16 4.20-5.40 [place] 844162-07-16 06:05:00 Test Item Value Reference Range Interpretation Comments Hgb (test code = Hgb) 12.6 12.0-16.0 [place] 844162-07-16 06:05:00 Test Item Value Reference Range Interpretation Comments Hct (test code = Hct) 38.3 36.0-48.0 [place] 844162-07-16 06:05:00 Test Item Value Reference Range Interpretation Comments MCV (test code = MCV) 92.0 80.0-98.0 [place] 844162-07-16 06:05:00 Test Item Value Reference Range Interpretation Comments MCH (test code = MCH) 30.4 pg 27.0-31.0 [place] 844162-07-16 06:05:00 Test Item Value Reference Range Interpretation Comments MCHC (test code = MCHC) 33.0 32.0-36.0 [place] 844162-07-16 06:05:00 Test Item Value Reference Range Interpretation Comments RDW (test code = RDW) 12.9 11.5-14.5 [place] 844162-07-16 06:05:00 Test Item Value Reference Range Interpretation Comments Platelet (test code = Platelet) 259 133-450 [facility] CenterMnjvecqNIMDTVDJRG7721-81-92 06:05:00 Test Item Value Reference Range Interpretation Comments MPV (test code = MPV) 7.5 7.4-10.4 [facility] CenterFezkwmiZHPQBKZMGB4825-51-70 06:05:00 Test Item Value Reference Range Interpretation Comments Segs (test code = Segs) 80.9 45.0-75.0 [facility] CenterNmdgmrrIARWEHRSDA5624-87-13 06:05:00 Test Item Value Reference Range Interpretation Comments Lymphocytes (test code = Lymphocytes) 11.8 20.0-40.0 [facility] CenterJvolkcoKTUBGHPPHK5673-50-52 06:05:00 Test Item Value Reference Range Interpretation Comments Monocytes (test code = Monocytes) 7.1 2.0-12.0 [facility] CenterSlskqmvPRIYDSGUPL6361-54-23 06:05:00 Test Item Value Reference Range Interpretation Comments Eosinophils (test code = Eosinophils) 0.1 <=4.0 [facility] CenterTegfjnlAQLXJQGGZF6481-05-38 06:05:00 Test Item Value Reference Range Interpretation Comments Basophils (test code = Basophils) 0.1 <=1.0 [facility] CenterVvzosfxLLIVWCYEZS5718-27-63 06:05:00 Test Item Value Reference Range Interpretation Comments Neutrophils # (test code = Neutrophils 9.2 1.5-8.1 #) [facility] CenterGbtjeigJYMRJPTMAJ9591-92-41 06:05:00 Test Item Value Reference Range Interpretation Comments Lymphocytes # (test code = Lymphocytes 1.3 1.0-5.5 #) [facility] CenterHhbwbrbXEMLESQKFO4519-75-35 06:05:00 Test Item Value Reference Range Interpretation Comments Monocytes # (test code = Monocytes #) 0.8 <=0.8 [facility] AND [id number] 04:36:00 Test Item Value Reference Range Interpretation Comments UA Color (test code = Yellow (10/10/21 11:36 UA Color) PM) [facility] AND [id number] 04:36:00 Test Item Value Reference Range Interpretation Comments UA Turbidity (test code Slight Cloudy = UA Turbidity) (10/10/21 11:36 PM) [facility] AND [id number] 04:36:00 Test Item Value Reference Range Interpretation Comments UA Spec Grav (test code = UA Spec 1.025 1 Grav) [facility] AND [id number] 04:36:00 Test Item Value Reference Range Interpretation Comments UA pH (test code = UA pH) 6.0 1 5.0-8.0 [facility] [id number] 04:36:00 Test Item Value Reference Range Interpretation Comments UA Protein (test code = UA Protein) 30 mg/dL [facility] AND [id number] 04:36:00 Test Item Value Reference Range Interpretation Comments UA Glucose (test code Negative (10/10/21 11:36 = UA Glucose) PM) [facility] [id number] 04:36:00 Test Item Value Reference Range Interpretation Comments UA Ketones (test code Negative *NA*(10/10/21 = UA Ketones) 11:36 PM) [facility] [id number] 04:36:00 Test Item Value Reference Range Interpretation Comments UA Bili (test code = Negative *NA*(10/10/21 UA Bili) 11:36 PM) [facility] AND [id number] 04:36:00 Test Item Value Reference Range Interpretation Comments UA Blood (test code = Large *ABN*(10/10/21 UA Blood) 11:36 PM) [facility] AND [id number] 04:36:00 Test Item Value Reference Range Interpretation Comments UA Urobilinogen (test code = UA 0.2 0.1-1.0 Urobilinogen) [facility] AND [id number] 04:36:00 Test Item Value Reference Range Interpretation Comments UA Nitrite (test code Positive *ABN*(10/10/21 = UA Nitrite) 11:36 PM) [facility] AND [id number] 04:36:00 Test Item Value Reference Range Interpretation Comments UA Leuk Est (test Negative (10/10/21 11:36 code = UA Leuk Est) PM) [facility] [id number] 04:36:00 Test Item Value Reference Range Interpretation Comments UA Sq Epi (test code = UA Sq Epi) Rare /LPF [facility] AND [id number] 04:36:00 Test Item Value Reference Range Interpretation Comments UA WBC (test code = UA WBC) 0-2 /HPF [facility] AND [id number] 04:36:00 Test Item Value Reference Range Interpretation Comments UA RBC (test code = UA RBC) 0-2 /HPF [facility] [id number] 04:36:00 Test Item Value Reference Range Interpretation Comments UA Bacteria (test code = UA Few /HPF Bacteria) [facility] [id number] 04:36:00 Test Item Value Reference Range Interpretation Comments UA Comment 1 (test LESS than 2.0 ml of code = UA Comment 1) urine submitted for testing. Microscopic performed on unspun specimen. [facility] [id number] 04:36:00 Test Item Value Reference Range Interpretation Comments UA Color (test code = Yellow (10/10/21 11:36 UA Color) PM) [facility] AND [id number] 04:36:00 Test Item Value Reference Range Interpretation Comments UA Turbidity (test code Slight Cloudy = UA Turbidity) (10/10/21 11:36 PM) [facility] AND [id number] 04:36:00 Test Item Value Reference Range Interpretation Comments UA Spec Grav (test code = UA Spec 1.025 1 Grav) [facility] AND [id number] 04:36:00 Test Item Value Reference Range Interpretation Comments UA pH (test code = UA pH) 6.0 1 5.0-8.0 [facility] [id number] 04:36:00 Test Item Value Reference Range Interpretation Comments UA Protein (test code = UA Protein) 30 mg/dL [facility] AND [id number] 04:36:00 Test Item Value Reference Range Interpretation Comments UA Glucose (test code Negative (10/10/21 11:36 = UA Glucose) PM) [facility] AND [id number] 04:36:00 Test Item Value Reference Range Interpretation Comments UA Ketones (test code Negative *NA*(10/10/21 = UA Ketones) 11:36 PM) [facility] [id number] 04:36:00 Test Item Value Reference Range Interpretation Comments UA Bili (test code = Negative *NA*(10/10/21 UA Bili) 11:36 PM) [facility] [id number] 04:36:00 Test Item Value Reference Range Interpretation Comments UA Blood (test code = Large *ABN*(10/10/21 UA Blood) 11:36 PM) [facility] [id number] 04:36:00 Test Item Value Reference Range Interpretation Comments UA Urobilinogen (test code = UA 0.2 0.1-1.0 Urobilinogen) [facility] [id number] 04:36:00 Test Item Value Reference Range Interpretation Comments UA Nitrite (test code Positive *ABN*(10/10/21 = UA Nitrite) 11:36 PM) [facility] [id number] 04:36:00 Test Item Value Reference Range Interpretation Comments UA Leuk Est (test Negative (10/10/21 11:36 code = UA Leuk Est) PM) [facility] [id number] 04:36:00 Test Item Value Reference Range Interpretation Comments UA Sq Epi (test code = UA Sq Epi) Rare /LPF [facility] AND [id number] 04:36:00 Test Item Value Reference Range Interpretation Comments UA WBC (test code = UA WBC) 0-2 /HPF [facility] [id number] 04:36:00 Test Item Value Reference Range Interpretation Comments UA RBC (test code = UA RBC) 0-2 /HPF [facility] [id number] 04:36:00 Test Item Value Reference Range Interpretation Comments UA Bacteria (test code = UA Few /HPF Bacteria) [facility] [id number] 04:36:00 Test Item Value Reference Range Interpretation Comments UA Comment 1 (test LESS than 2.0 ml of code = UA Comment 1) urine submitted for testing. Microscopic performed on unspun specimen. [facility] [id number] 04:36:00 Test Item Value Reference Range Interpretation Comments UA Color (test code = Yellow (10/10/21 11:36 UA Color) PM) [facility] [id number] 04:36:00 Test Item Value Reference Range Interpretation Comments UA Turbidity (test code Slight Cloudy = UA Turbidity) (10/10/21 11:36 PM) [facility] [id number] 04:36:00 Test Item Value Reference Range Interpretation Comments UA Spec Grav (test code = UA Spec 1.025 1 Grav) [facility] AND [id number] 04:36:00 Test Item Value Reference Range Interpretation Comments UA pH (test code = UA pH) 6.0 1 5.0-8.0 [facility] AND [id number] 04:36:00 Test Item Value Reference Range Interpretation Comments UA Protein (test code = UA Protein) 30 mg/dL [facility] AND [id number] 04:36:00 Test Item Value Reference Range Interpretation Comments UA Glucose (test code Negative (10/10/21 11:36 = UA Glucose) PM) [facility] AND [id number] 04:36:00 Test Item Value Reference Range Interpretation Comments UA Ketones (test code Negative *NA*(10/10/21 = UA Ketones) 11:36 PM) [facility] AND [id number] 04:36:00 Test Item Value Reference Range Interpretation Comments UA Bili (test code = Negative *NA*(10/10/21 UA Bili) 11:36 PM) [facility] AND [id number] 04:36:00 Test Item Value Reference Range Interpretation Comments UA Blood (test code = Large *ABN*(10/10/21 UA Blood) 11:36 PM) [facility] AND [id number] 04:36:00 Test Item Value Reference Range Interpretation Comments UA Urobilinogen (test code = UA 0.2 0.1-1.0 Urobilinogen) [facility] AND [id number] 04:36:00 Test Item Value Reference Range Interpretation Comments UA Nitrite (test code Positive *ABN*(10/10/21 = UA Nitrite) 11:36 PM) [facility] AND [id number] 04:36:00 Test Item Value Reference Range Interpretation Comments UA Leuk Est (test Negative (10/10/21 11:36 code = UA Leuk Est) PM) [facility] AND [id number] 04:36:00 Test Item Value Reference Range Interpretation Comments UA Sq Epi (test code = UA Sq Epi) Rare /LPF [facility] AND [id number] 04:36:00 Test Item Value Reference Range Interpretation Comments UA WBC (test code = UA WBC) 0-2 /HPF [facility] [id number] 04:36:00 Test Item Value Reference Range Interpretation Comments UA RBC (test code = UA RBC) 0-2 /HPF [facility] [id number] 04:36:00 Test Item Value Reference Range Interpretation Comments UA Bacteria (test code = UA Few /HPF Bacteria) [facility] [id number] 04:36:00 Test Item Value Reference Range Interpretation Comments UA Comment 1 (test LESS than 2.0 ml of code = UA Comment 1) urine submitted for testing. Microscopic performed on unspun specimen. [facility]hsEDRMSRQPZF9320-[facility] 23:53:00 Test Item Value Reference Range Interpretation Comments [facility] HIV 4th GEN (test Negative *NA*(10/10/21 code = [facility] HIV 4th 6:53 PM) GEN) [facility] Hospit[id number] 23:53:00 Test Item Value Reference Range Interpretation Comments Hep C Ab (test code = Hep C Ab) NON-REACTIVE [facility] HospitalR[id number] 23:53:00 Test Item Value Reference Range Interpretation Comments Hep Signal to Cut-Off (test code = Hep 0.03 1 Signal to Cut-Off) [facility] HospitalQgikpwzENNTPMJVFO8039-33-30 23:53:00 Test Item Value Reference Range Interpretation Comments [facility] HIV 4th GEN (test Negative *NA*(10/10/21 code = [facility] HIV 4th 6:53 PM) GEN) [facility] HospitalOzccnbvPTTSARMIFR6726-08-52 23:53:00 Test Item Value Reference Range Interpretation Comments Hep C Ab (test code = Hep C Ab) NON-REACTIVE [facility] H[id number] 23:53:00 Test Item Value Reference Range Interpretation Comments Hep Signal to Cut-Off (test code = Hep 0.03 1 Signal to Cut-Off) [facility] HospitalE[id number] 23:53:00 Test Item Value Reference Range Interpretation Comments Hep C Ab (test code = Hep C Ab) NON-REACTIVE [facility] H[id number] 23:53:00 Test Item Value Reference Range Interpretation Comments Hep Signal to Cut-Off (test code = Hep 0.03 1 Signal to Cut-Off) [facility] Hospit[id number] 23:53:00 Test Item Value Reference Range Interpretation Comments CDC HIV 4th GEN (test Negative *NA*(10/10/21 code = CDC HIV 4th 6:53 PM) GEN) [facility] [employer] [id number] 23:48:00 Test Item Value Reference Range Interpretation Comments ABO/Rh (test code = ABO/Rh) O POS [employer] [id number] 23:48:00 Test Item Value Reference Range Interpretation Comments Antibody Scrn (test Negative (10/10/21 6:48 code = Antibody Scrn) PM) [employer] [id number] 23:48:00 Test Item Value Reference Range Interpretation Comments Total Protein (test code = Total 7.1 6.4-8.4 Protein) [employer] [id number] 23:48:00 Test Item Value Reference Range Interpretation Comments Albumin Lvl (test code = Albumin Lvl) 3.2 3.5-5.0 [employer] [id number] 23:48:00 Test Item Value Reference Range Interpretation Comments Globulin (test code = Globulin) 3.9 2.7-4.2 [employer] [id number] 23:48:00 Test Item Value Reference Range Interpretation Comments A/G Ratio (test code = A/G Ratio) 0.8 1 0.7-1.6 [facility] [employer]2022-07-15 23:48:00 Test Item Value Reference Range Interpretation Comments ALANINE AMINOTRANSFERASE 187 See_Comment [A utomated message] (test code = ALANINE The sys tem which AMINOTRANSFERASE) generated this result transmitted ref erence range: <=65. Th e reference range was not used to int erpret this result as normal/abnormal . [employer] [id number] 23:48:00 Test Item Value Reference Range Interpretation Comments AST (test code = AST) 170 See_Comment [Auto mated message] The system which ge nerated this result transmit yuniel reference range : <=37. The reference range was not used to interpr et this result as manohar l/abnormal. [employer]2022-07-15 23:48:00 Test Item Value Reference Range Interpretation Comments Alk Phos (test code = Alk Phos) 65 39-136 [facility] [employer] [id number] 23:48:00 Test Item Value Reference Range Interpretation Comments Bili Total (test code = Bili Total) 0.3 0.2-1.3 [facility]2022-07-15 23:48:00 Test Item Value Reference Range Interpretation Comments Bili Direct (test code no gt See_Comment [Aut omated message] The = Bili Direct) system which generated this result tra nsmitted reference range : <=0.3. The reference r steven was not used to int erpret this result as manohar l/abnormal. [facility] [id number] 23:48:00 Test Item Value Reference Range Interpretation Comments Bili Indirect Unable to See_Comment [Automated (test code = Bili Calculate message] T he system Indirect) which generated this result transmitted reference range : <=1.0. The reference range was not used to interpret this result as normal/abnormal . [place] [id number] 23:48:00 Test Item Value Reference Range Interpretation Comments S Preg (test code = S Negative *NA*(10/10/21 Preg) 6:48 PM) [id number] 23:48:00 Test Item Value Reference Range Interpretation Comments WBC X 10x3 (test code = WBC X 10x3) 18.6 3.7-10.4 [place] 844162-07-15 23:48:00 Test Item Value Reference Range Interpretation Comments Platelet (test code = Platelet) 278 133-450 [facility] CenterIdtfclhNPVOCXNALH7322-65-67 23:48:00 Test Item Value Reference Range Interpretation Comments MPV (test code = MPV) 7.8 7.4-10.4 [place] 844162-07-15 23:48:00 Test Item Value Reference Range Interpretation Comments ACT (TEG) Rapid (test code = ACT (TEG) 113 s 86-118 Rapid) [place] 844162-07-15 23:48:00 Test Item Value Reference Range Interpretation Comments Split Point Rapid (test code = Split 0.6 min Point Rapid) [place] 844162-07-15 23:48:00 Test Item Value Reference Range Interpretation Comments R-time Rapid (test code = R-time 0.7 min 0.4-0.7 Rapid) [facility] CenterTrfthmrCTZWNLHBAX1088-85-42 23:48:00 Test Item Value Reference Range Interpretation Comments K-time Rapid (test code = K-time 1.0 min 0.6-2.3 Rapid) [place] [address]-07-15 23:48:00 Test Item Value Reference Range Interpretation Comments Angle Rapid (test code = Angle 78 degrees 64-80 Rapid) [place] [address]-07-15 23:48:00 Test Item Value Reference Range Interpretation Comments Max Amplitude Rapid (test code = Max 69 mm 52-71 Amplitude Rapid) [place] [address]-07-15 23:48:00 Test Item Value Reference Range Interpretation Comments G-value Rapid (test code = G-value 11.3 5.0-11.6 Rapid) [place] [address]-07-15 23:48:00 Test Item Value Reference Range Interpretation Comments Estimated % Lysis Rapid 0.0 See_Comment [Au tomated message] The (test code = Estimated syste m which generated % Lysis Rapid) this result t ransmitted reference range : <=7.5. The reference r stveen was not used to int erpret this result as normal/abnormal . [place] [address]-07-15 23:48:00 Test Item Value Reference Range Interpretation Comments Segs (test code = Segs) 81.4 45.0-75.0 [place] [address]-07-15 23:48:00 Test Item Value Reference Range Interpretation Comments Lymphocytes (test code = Lymphocytes) 10.9 20.0-40.0 [place] [address]-07-15 23:48:00 Test Item Value Reference Range Interpretation Comments Monocytes (test code = Monocytes) 7.0 2.0-12.0 [place] [address]-07-15 23:48:00 Test Item Value Reference Range Interpretation Comments Eosinophils (test code = 0.5 See_Comment [A utomated message] The Eosinophils) system which ge nerated this result tra nsmitted reference range : <=4.0. The reference r steven was not used to int erpret this result as normal/abnormal . [place] [address]-07-15 23:48:00 Test Item Value Reference Range Interpretation Comments Basophils (test code = 0.2 See_Comment [Aut omated message] The Basophils) system which ge nerated this result tra nsmitted reference range : <=1.0. The reference r steven was not used to int erpret this result as normal/abnormal . [facility]YBVFRCCO8731[facility] 23:48:00 Test Item Value Reference Range Interpretation Comments Neutrophils # (test code = Neutrophils 15.2 1.5-8.1 #) [facility]FfqwvqoHIGOPCSIYA2028-06-34 23:48:00 Test Item Value Reference Range Interpretation Comments Lymphocytes # (test code = Lymphocytes 2.0 1.0-5.5 #) [facility] CenterEhrenbdBMQGQGDKTO4762-76-93 23:48:00 Test Item Value Reference Range Interpretation Comments Monocytes # (test code 1.3 See_Comment [Aut omated message] The = Monocytes #) system which generated this result tra nsmitted reference range : <=0.8. The reference r steven was not used to int erpret this result as normal/abnormal . [facility] CenterCmxeqpqFCUWAPGAEE6497-53-29 23:48:00 Test Item Value Reference Range Interpretation Comments Eosinophils # (test code 0.1 See_Comment [A utomated message] The = Eosinophils #) system whic h generated this result tra nsmitted reference range : <=0.5. The reference r steevn was not used to int erpret this result as normal/abnormal . [facility] CampusLesekjyQAJDXNGYVX9523-95-44 23:48:00 Test Item Value Reference Range Interpretation Comments Coronavirus (COVID-19) Not Detected (10/10/21 FRANKO (test code = 6:48 PM) Coronavirus (COVID-19) FRANKO) [facility] CampusSlvtkteCKUGRCXXEW7980-22-89 23:48:00 Test Item Value Reference Range Interpretation Comments Ethanol Lvl (test code = Ethanol Lvl) no gt [facility] CampusNpvnzzwZFJHGOIQVS6846-85-63 23:48:00 Test Item Value Reference Range Interpretation Comments Etoh (%) (test code = Etoh (%)) no gt [facility] [id number] 23:48:00 Test Item Value Reference Range Interpretation Comments ABO/Rh (test code = ABO/Rh) O POS [facility] [id number] 23:48:00 Test Item Value Reference Range Interpretation Comments Antibody Scrn (test Negative (10/10/21 6:48 code = Antibody Scrn) PM) [place] [address]-07-15 23:48:00 Test Item Value Reference Range Interpretation Comments Total Protein (test code = Total 7.1 6.4-8.4 Protein) [place] [address]-07-15 23:48:00 Test Item Value Reference Range Interpretation Comments Albumin Lvl (test code = Albumin Lvl) 3.2 3.5-5.0 [place] [address]-07-15 23:48:00 Test Item Value Reference Range Interpretation Comments Globulin (test code = Globulin) 3.9 2.7-4.2 [place] [address]-07-15 23:48:00 Test Item Value Reference Range Interpretation Comments A/G Ratio (test code = A/G Ratio) 0.8 1 0.7-1.6 [place] [address]-07-15 23:48:00 Test Item Value Reference Range Interpretation Comments ALANINE AMINOTRANSFERASE 187 See_Comment [A utomated message] (test code = ALANINE The sys tem which AMINOTRANSFERASE) generated this result transmitted ref erence range: <=65. Th e reference range was not used to int erpret this result as normal/abnormal . [facility] CampusKuaidi Dache [id number] 23:48:00 Test Item Value Reference Range Interpretation Comments AST (test code = AST) 170 See_Comment [Auto mated message] The system which ge nerated this result transmit yuniel reference range : <=37. The reference range was not used to interpr et this result as manohar l/abnormal. [facility] CampusKuaidi Dache [id number] 23:48:00 Test Item Value Reference Range Interpretation Comments Alk Phos (test code = Alk Phos) 65 39-136 [facility] CampusKua[facility] [id number] 23:48:00 Test Item Value Reference Range Interpretation Comments Bili Total (test code = Bili Total) 0.3 0.2-1.3 [place] [address]-07-15 23:48:00 Test Item Value Reference Range Interpretation Comments Bili Direct (test code no gt See_Comment [Aut omated message] The = Bili Direct) system which generated this result tra nsmitted reference range : <=0.3. The reference r steven was not used to int erpret this result as manohar l/abnormal. [facility]2022-07-15 23:48:00 Test Item Value Reference Range Interpretation Comments Bili Indirect Unable to See_Comment [Automated (test code = Bili Calculate message] T he system Indirect) which generated this result transmitted reference range : <=1.0. The reference range was not used to interpret this result as normal/abnormal . [place] 12419022-07-15 23:48:00 Test Item Value Reference Range Interpretation Comments S Preg (test code = S Negative *NA*(10/10/21 Preg) 6:48 PM) [facility] CenterHrgrmpmDMMCZTTXAD7148-80-89 23:48:00 Test Item Value Reference Range Interpretation Comments WBC X 10x3 (test code = WBC X 10x3) 18.6 3.7-10.4 [facility] CenterFkrcktgURKWKJGZYF0305-85-83 23:48:00 Test Item Value Reference Range Interpretation Comments Platelet (test code = Platelet) 278 133-450 [facility] CenterHxrjafyBSAFTELHET1447-40-79 23:48:00 Test Item Value Reference Range Interpretation Comments MPV (test code = MPV) 7.8 7.4-10.4 [place] 844162-07-15 23:48:00 Test Item Value Reference Range Interpretation Comments ACT (TEG) Rapid (test code = ACT (TEG) 113 s 86-118 Rapid) [place] 844162-07-15 23:48:00 Test Item Value Reference Range Interpretation Comments Split Point Rapid (test code = Split 0.6 min Point Rapid) [place] 844162-07-15 23:48:00 Test Item Value Reference Range Interpretation Comments R-time Rapid (test code = R-time 0.7 min 0.4-0.7 Rapid) [place] [address]-07-15 23:48:00 Test Item Value Reference Range Interpretation Comments K-time Rapid (test code = K-time 1.0 min 0.6-2.3 Rapid) [place] [address]-07-15 23:48:00 Test Item Value Reference Range Interpretation Comments Angle Rapid (test code = Angle 78 degrees 64-80 Rapid) [facility] CenterYjvdsjnVNPSJPAZAS5552-57-55 23:48:00 Test Item Value Reference Range Interpretation Comments Max Amplitude Rapid (test code = Max 69 mm 52-71 Amplitude Rapid) [place] 844162-07-15 23:48:00 Test Item Value Reference Range Interpretation Comments G-value Rapid (test code = G-value 11.3 5.0-11.6 Rapid) [place] [address]-07-15 23:48:00 Test Item Value Reference Range Interpretation Comments Estimated % Lysis Rapid 0.0 See_Comment [Au tomated message] The (test code = Estimated syste m which generated % Lysis Rapid) this result t ransmitted reference range : <=7.5. The reference r steven was not used to int erpret this result as normal/abnormal . [facility] CenterSkjzjanEDICHTWOEC1015-80-56 23:48:00 Test Item Value Reference Range Interpretation Comments Segs (test code = Segs) 81.4 45.0-75.0 [place] 844162-07-15 23:48:00 Test Item Value Reference Range Interpretation Comments Lymphocytes (test code = Lymphocytes) 10.9 20.0-40.0 [place] 844162-07-15 23:48:00 Test Item Value Reference Range Interpretation Comments Monocytes (test code = Monocytes) 7.0 2.0-12.0 [place] 844162-07-15 23:48:00 Test Item Value Reference Range Interpretation Comments Eosinophils (test code = 0.5 See_Comment [A utomated message] The Eosinophils) system which ge nerated this result tra nsmitted reference range : <=4.0. The reference r steven was not used to int erpret this result as normal/abnormal . [facility] CenterImilltqXTVUCTBCYZ7441-50-94 23:48:00 Test Item Value Reference Range Interpretation Comments Basophils (test code = 0.2 See_Comment [Aut omated message] The Basophils) system which ge nerated this result tra nsmitted reference range : <=1.0. The reference r steven was not used to int erpret this result as normal/abnormal . [place] 844162-07-15 23:48:00 Test Item Value Reference Range Interpretation Comments Neutrophils # (test code = Neutrophils 15.2 1.5-8.1 #) [facility] CenterVbvbyspEKMINZXAAU1223-69-55 23:48:00 Test Item Value Reference Range Interpretation Comments Lymphocytes # (test code = Lymphocytes 2.0 1.0-5.5 #) [place] 844162-07-15 23:48:00 Test Item Value Reference Range Interpretation Comments Monocytes # (test code 1.3 See_Comment [Aut omated message] The = Monocytes #) system which generated this result tra nsmitted reference range : <=0.8. The reference r steven was not used to int erpret this result as normal/abnormal . [facility] VzvkevfGERKYNQZRX1049-40-13 23:48:00 Test Item Value Reference Range Interpretation Comments Eosinophils # (test code 0.1 See_Comment [A utomated message] The = Eosinophils #) system whic h generated this result tra nsmitted reference range : <=0.5. The reference r steven was not used to int erpret this result as normal/abnormal . [facility] CokkjznWHKYUVAPXG1740-04-25 23:48:00 Test Item Value Reference Range Interpretation Comments Coronavirus (COVID-19) Not Detected (10/10/21 FRANKO (test code = 6:48 PM) Coronavirus (COVID-19) FRANKO) [facility] LbmoejcRVHTZDVGNN0612-57-20 23:48:00 Test Item Value Reference Range Interpretation Comments Ethanol Lvl (test code = Ethanol Lvl) no gt [facility] TemmzkcKEHONPPMNM7199-98-08 23:48:00 Test Item Value Reference Range Interpretation Comments Etoh (%) (test code = Etoh (%)) no gt [employer] [id number] 23:48:00 Test Item Value Reference Range Interpretation Comments ABO/Rh (test code = ABO/Rh) O POS [facility] [employer] [id number] 23:48:00 Test Item Value Reference Range Interpretation Comments Antibody Scrn (test Negative (10/10/21 6:48 code = Antibody Scrn) PM) [facility] [employer] [id number] 23:48:00 Test Item Value Reference Range Interpretation Comments Total Protein (test code = Total 7.1 6.4-8.4 Protein) [facility] [employer] [id number] 23:48:00 Test Item Value Reference Range Interpretation Comments Albumin Lvl (test code = Albumin Lvl) 3.2 3.5-5.0 [employer]2022-07-15 23:48:00 Test Item Value Reference Range Interpretation Comments Globulin (test code = Globulin) 3.9 2.7-4.2 [place] 833522-07-15 23:48:00 Test Item Value Reference Range Interpretation Comments A/G Ratio (test code = A/G Ratio) 0.8 1 0.7-1.[address]07-15 23:48:00 Test Item Value Reference Range Interpretation Comments ALANINE AMINOTRANSFERASE (test code = 187 <=65 ALANINE AMINOTRANSFERASE) [place] [address]-07-15 23:48:00 Test Item Value Reference Range Interpretation Comments AST (test code = AST) 170 <=37 [place] 833522-07-15 23:48:00 Test Item Value Reference Range Interpretation Comments Alk Phos (test code = Alk Phos) 65 39-136 [place] 833522-07-15 23:48:00 Test Item Value Reference Range Interpretation Comments Bili Total (test code = Bili Total) 0.3 0.2-1.3 [place] [address]-07-15 23:48:00 Test Item Value Reference Range Interpretation Comments Bili Direct (test code = Bili Direct) no gt <=0.3 [place] 833522-07-15 23:48:00 Test Item Value Reference Range Interpretation Comments Bili Indirect (test code Unable to Calculate <=1.0 = Bili Indirect) [place] [id number] 23:48:00 Test Item Value Reference Range Interpretation Comments S Preg (test code = S Negative *NA*(10/10/21 Preg) 6:48 PM) [address]07-15 23:48:00 Test Item Value Reference Range Interpretation Comments ACT (TEG) Rapid (test code = ACT (TEG) 113 s 86-118 Rapid) [place] [id number] 23:48:00 Test Item Value Reference Range Interpretation Comments Split Point Rapid (test code = Split 0.6 min Point Rapid) [place] [id number] 23:48:00 Test Item Value Reference Range Interpretation Comments R-time Rapid (test code = R-time 0.7 min 0.4-0.7 Rapid) [place] [id number] 23:48:00 Test Item Value Reference Range Interpretation Comments K-time Rapid (test code = K-time 1.0 min 0.6-2.3 Rapid) [address]07-15 23:48:00 Test Item Value Reference Range Interpretation Comments Angle Rapid (test code = Angle 78 degrees 64-80 Rapid) [address]07-15 23:48:00 Test Item Value Reference Range Interpretation Comments Max Amplitude Rapid (test code = Max 69 mm 52-71 Amplitude Rapid) [place] [id number] 23:48:00 Test Item Value Reference Range Interpretation Comments G-value Rapid (test code = G-value 11.3 5.0-11.6 Rapid) [address]07-15 23:48:00 Test Item Value Reference Range Interpretation Comments Estimated % Lysis Rapid (test code = 0.0 <=7.5 Estimated % Lysis Rapid) [address]07-15 23:48:00 Test Item Value Reference Range Interpretation Comments Eosinophils # (test code = Eosinophils 0.1 <=0.5 #) [place] [id number] 23:48:00 Test Item Value Reference Range Interpretation Comments WBC X 10x3 (test code = WBC X 10x3) 18.6 3.7-10.4 [place] [id number] 23:48:00 Test Item Value Reference Range Interpretation Comments Platelet (test code = Platelet) 278 133-450 [place] [id number] 23:48:00 Test Item Value Reference Range Interpretation Comments MPV (test code = MPV) 7.8 7.4-10.4 [place] [address]-07-15 23:48:00 Test Item Value Reference Range Interpretation Comments Segs (test code = Segs) 81.4 45.0-75.0 [place] [address]-07-15 23:48:00 Test Item Value Reference Range Interpretation Comments Lymphocytes (test code = Lymphocytes) 10.9 20.0-40.0 [place] [address]-07-15 23:48:00 Test Item Value Reference Range Interpretation Comments Monocytes (test code = Monocytes) 7.0 2.0-12.0 [place] [address]-07-15 23:48:00 Test Item Value Reference Range Interpretation Comments Eosinophils (test code = Eosinophils) 0.5 <=4.0 [facility] 23:48:00 Test Item Value Reference Range Interpretation Comments Basophils (test code = Basophils) 0.2 <=1.0 [facility] 23:48:00 Test Item Value Reference Range Interpretation Comments Neutrophils # (test code = Neutrophils 15.2 1.5-8.1 #) [facility] 23:48:00 Test Item Value Reference Range Interpretation Comments Lymphocytes # (test code = Lymphocytes 2.0 1.0-5.5 #) [facility]FW[facility]20[facility]-99 23:48:00 Test Item Value Reference Range Interpretation Comments Monocytes # (test code = Monocytes #) 1.3 <=0.8 [facility]97[facility] 23:48:00 Test Item Value Reference Range Interpretation Comments Coronavirus (COVID-19) Not Detected (10/10/21 FRANKO (test code = 6:48 PM) Coronavirus (COVID-19) FRANKO) [facility]FPTLHXEVIA0690-90-58 23:48:00 Test Item Value Reference Range Interpretation Comments Ethanol Lvl (test code = Ethanol Lvl) no gt [facility]GmreulzCRCTQVQMJJ3824-25-60 23:48:00 Test Item Value Reference Range Interpretation Comments Etoh (%) (test code = Etoh (%)) no gt [facility]
[2023-01-19] MEDS ORDERED: NA CHLORIDE 0.9% 1,000 ML ONE (09:46)
[2023-01-19 10:13] LABS: Specific Gravity 1.024 (1.005-1.030)
[2023-01-19 10:16] LABS: Specific Gravity 1.024 (1.005-1.030); Urine Bacteria None Seen /HPF (<20); Urine Bilirubin NEGATIVE (Negative); Urine Blood Negative (Negative); Urine Clarity Extremely Turbid (Clear); Urine Color Light-Yellow (Yellow); Urine Glucose NEGATIVE (Negative); Urine Protein NEGATIVE (Negative); Urine RBC <5 /HPF (None Seen); Urine Urobilinogen Normal (Normal); Urine pH 5.5 (5.0-7.0)
[2023-01-19 10:37] LABS: Absolute Lymphocytes (CBC) 3.1 K/uL (0.7-4.9); Hematocrit 40.9 % (36.0-45.0); Lymphocytes % 26.8 % (15.3-44.8); MCV 91.6 fL (80-100); MPV 7.6 fL (7.6-11.3); Platelets 243 thou/uL (152-406); RBC Red Blood Cell Count 4.46 M/uL (3.86-4.86)
--- NOTE | 2023-01-19 10:41 | RAD REPORT ---
EXAM DESCRIPTION: CT - Abdomen Pelvis W Contrast - 01/19/2023 10:26 am CLINICAL HISTORY: Abdominal pain COMPARISON: 2020 TECHNIQUE: Computed axial tomography of the abdomen pelvis was obtained. 100 cc Isovue-300 was admin istered intravenously. Oral contrast was not requested which limits evaluation of bowel and appendix All CT scans are performed using dose optimization technique as appropriate and may include automated exposure control or mA/KV adjustment according to patient size. FINDINGS: Right lateral abdominal wall hernia contains liver, stomach, large and small bowel. The ne ck measures 18 centimeters. Fatty liver. Spleen, pancreas, kidneys , and adrenals unremarkable No evidence of diverticulitis No adnexal mass. No obstruction IMPRESSION: Very large right lateral abdominal wall hernia
[2023-01-19 10:51] LABS: Albumin 3.1 g/dL (3.4-5.0); Bilirubin Total 0.3 mg/dL (0.2-1.0); Potassium 4.2 mEq/L (3.5-5.1); Protein, Total 7.3 g/dL (6.4-8.2)
[2023-01-19] MEDS ORDERED: NA CHLORIDE 0.9% 50 ML ONE (11:33)
[2023-01-19] MEDS ORDERED: CEFTRIAXONE 1000 MG/VIAL ONE (11:33)
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
--- NOTE | 2023-01-19 11:40 | EDPHYS ---
Physician Documentation [facility] Name: Mel Moncada Age: 32 yrs Sex: Female : 1990 Arrival Date: 01/19/2023 Time: 09:06 Bed 19 Private MD: ED Physician Rober Lawson HPI: 01/19 11:33 This 32 yrs old Female presents to ER via Ambulatory with complaints of Abd Lump. argenis 11:33 The patient presents with abdominal pain in the upper abdomen, in the right upper argenis quadrant, abdominal distention in the right upper quadrant. Onset: The symptoms/episode began/occurred 2 day(s) ago. The symptoms do not radiate. Associated signs and symptoms: none. The symptoms are described as crampy. Modifying factors: The symptoms are alleviated by nothing, the symptoms are aggravated by movement. Severity of pain: At its worst the pain was mild in the emergency department the pain is unchanged. The patient has experienced similar episodes in the past, multiple times. 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 - Family history:: not pertinent. - Social history:: Smoking status: Patient denies any tobacco usage or history of. ROS: 11:33 Constitutional: Negative for fever, chills, and weight loss, Eyes: Negative for injury, argenis pain, redness, and discharge, ENT: Negative for injury, pain, and discharge, Neck: Negative for injury, pain, and swelling, Cardiovascular: Negative for chest pain, palpitations, and edema, Respiratory: Negative for shortness of breath, cough, wheezing, and pleuritic chest pain, Back: Negative for injury and pain, : Negative for injury, bleeding, discharge, and swelling, MS/Extremity: Negative for injury and deformity, Skin: Negative for injury, rash, and discoloration, Neuro: Negative for headache, weakness, numbness, tingling, and seizure, Psych: Negative for depression, anxiety, suicide ideation, homicidal ideation, and hallucinations, Allergy/Immunology: Negative for hives, rash, and allergies, Endocrine: Negative for neck swelling, polydipsia, polyuria, polyphagia, and marked weight changes, Hematologic/Lymphatic: Negative for swollen nodes, abnormal bleeding, and unusual bruising, 11:33 Abdomen/GI: Positive for abdominal pain, of the posterior aspect of right lateral abdomen, anterior aspect of right lateral abdomen and right upper quadrant, Exam: 11:33 Constitutional: This is a well developed, well nourished patient who is awake, alert, argenis and in no acute distress. Head/Face: Normocephalic, atraumatic. Eyes: Pupils equal round and reactive to light, extra-ocular motions intact. Lids and lashes normal. Conjunctiva and sclera are non-icteric and not injected. Cornea within normal limits. Periorbital areas with no swelling, redness, or edema. ENT: Nares patent. No nasal discharge, no septal abnormalities noted. Tympanic membranes are normal and external auditory canals are clear. Oropharynx with no redness, swelling, or masses, exudates, or evidence of obstruction, uvula midline. Mucous membranes moist. Neck: Trachea midline, no thyromegaly or masses palpated, and no cervical lymphadenopathy. Supple, full range of motion without nuchal rigidity, or vertebral point tenderness. No Meningismus. Chest/axilla: Normal chest wall appearance and motion. Nontender with no deformity. No lesions are appreciated. Cardiovascular: Regular rate and rhythm with a normal S1 and S2. No gallops, murmurs, or rubs. Normal PMI, no JVD. No pulse deficits. Respiratory: Lungs have equal breath sounds bilaterally, clear to auscultation and percussion. No rales, rhonchi or wheezes noted. No increased work of breathing, no retractions or nasal flaring. Back: No spinal tenderness. No costovertebral tenderness. Full range of motion. Skin: Warm, dry with normal turgor. Normal color with no rashes, no lesions, and no evidence of cellulitis. MS/ Extremity: Pulses equal, no cyanosis. Neurovascular intact. Full, normal range of motion. Neuro: Awake and alert, GCS 15, oriented to person, place, time, and situation. Cranial nerves II-XII grossly intact. Motor strength 5/5 in all extremities. Sensory grossly intact. Cerebellar exam normal. Normal gait. Psych: Awake, alert, with orientation to person, place and time. Behavior, mood, and affect are within normal limits. 11:33 Abdomen/GI: Inspection: distension, that is moderate, in the posterior aspect of right lateral abdomen, anterior aspect of right lateral abdomen and right upper quadrant, Bowel sounds: normal, Palpation: abdomen is soft and non-tender, soft, nontender, Liver: no appreciated palpable abnormalities, Hernia: not appreciated, Vital Signs: 09:33 BP 126 / 88; Pulse 94; Resp 16; Temp 98.2; Pulse Ox 100% on R/A; Weight 113.4 kg; iw Height 4 ft. 11 in. ; Pain 8/10; 11:58 BP 100 / 57; Pulse 81; Resp 16; Pulse Ox 97% on R/A; db 09:33 Body Mass Index 50.49 (113.40 kg, 149.86 cm) iw 09:33 Pain Scale: Adult iw MDM: 09:21 Patient medically screened. argenis 11:36 Differential diagnosis: bowel obstruction, Cholelithiasis, diverticulitis, gastritis, argenis non-specific abd pain, pancreatitis, Perf. Duodenal Ulcer, Pyelonephritis, urinary tract infection. Data reviewed: vital signs, nurses notes, lab test result(s), radiologic studies, CT scan. Consideration of Admission/Observation Escalation of care including admission/observation considered. I considered the following discharge prescriptions or medication management in the emergency department Medications were administered in the Emergency Department. See MAR. Independent interpretation of the following test(s) in the Emergency Department CT Scan: My interpretation is ct abd no obstruction. Test considered but Not performed: Ultrasound no abd usg. Historians other than the Patient: Spouse/Significant Other: . Care significantly affected by the following chronic conditions: Obesity. Counseling: I had a detailed discussion with the patient and/or guardian regarding the historical points, exam findings, and any diagnostic results supporting the discharge/admit diagnosis, lab results, radiology results, the need for outpatient follow up, for definitive care, a family practitioner, a general surgeon. 01/19 09:22 Order name: CBC with Diff; Complete Time: 11:12 argenis 01/19 09:22 Order name: CMP; Complete Time: 11:12 argenis 01/19 09:22 Order name: Lipase; Complete Time: 11:12 argenis 01/19 09:22 Order name: Test, Urine; Complete Time: 10:39 argenis 01/19 09:22 Order name: Urinalysis w/ reflexes; Complete Time: 10:39 argenis 01/19 09:32 Order name: Lactate w/ 2H reflex if indic.; Complete Time: 11:12 01/19 10:26 Order name: Urine Culture [facility] 01/19 09:23 Order name: CT Abd/Pelvis - IV Contrast Only; Complete Time: 11:12 [facility] 01/19 09:22 Order name: IV Saline Lock; Complete Time: 10:10 [facility] 01/19 09:22 Order name: Labs collected and sent; Complete Time: 10:36 [facility] Administered Medications: 10:05 Drug: NS 0.9% IV 1000 ml IV at 1 bolus Per protocol; 1000 mL bolus Route: IV; Rate: 1 db bolus; Site: left wrist; 11:32 Drug: Rocephin IV 1 grams IV at per protocol once; Given slow IV push per pharmacy db instructions Route: IV; Rate: per protocol; Site: left wrist; 11:44 Drug: Ciprofloxacin PO 500 mg PO once Route: PO; db 12:04 Follow up: Response: No adverse reaction db Disposition Summary: 01/19/23 11:38 Discharge Ordered Notes: Location: Home argenis Problem: new argenis Symptoms: have improved argenis Condition: Stable argenis Diagnosis - Ventral hernia without obstruction or gangrene argenis - Other specified abdominal hernia without obstruction or gangrene argenis - UTI/ Urinary tract infection, site not specified argenis Followup: argenis - With: Private Physician - When: 2 - 3 days - Reason: Recheck today's complaints, Continuance of care, Re-evaluation by your physician Followup: argenis - With: Phil Sandoval MD - When: 2 - 3 days - Reason: Recheck today's complaints, Re-evaluation by your physician Discharge Instructions: - Discharge Summary Sheet argenis - Urinary Tract Infection, Adult argenis - Hernia, Adult, Ruth-xj-Exhj argenis - Ventral Hernia [facility] Forms: - Medication Reconciliation Form argenis - Thank You Letter argenis - Antibiotic Education argenis - Prescription Opioid Use argenis - Patient Portal Instructions [facility] - Leadership Thank You Letter [facility] Prescriptions: - Cipro 250 mg Oral Tablet - take 2 tablets ORAL route every 12 hours; 20 tablet; Refills: 0, Product argenis Selection Permitted - dicyclomine 20 mg Oral tablet - take 1 tablet ORAL route 4 times per day; 28 tablet; Refills: 0, Product argenis Selection Permitted Signatures: Dispatcher [employer] Rober Herron MD MD cha Williams, Irene RN RN Poonam Lindo, RN RN db
[2023-01-19] MEDS ORDERED: CIPROFLOXACIN HCL 500 MG TAB ONE (11:57)
== END 2023-01-19 12:06 | disposition home or self-care (01) ==
LOC: ER 09:06
DX: K43.9 Ventral hernia without obstruction or gangrene (principal); K45.8 Other specified abdominal hernia without obstruction or gangrene; N39.0 Urinary tract infection, site not specified
CPT/HCPCS: 36415; 74177; 80053; 81001; 81025; 83605; 83690; 85025; 87086; 87088; J0696; J7030; Q9967